=== PATIENT | female | born 1935 | race Caucasian/White ===

== ENCOUNTER 2018-05-08 08:00 | Outpatient (RCR) | payer MEDICARE | END 2018-05-12 | disposition home or self-care (01) | LOC: CR3 08:00 | PROVIDERS: ATTEND Internal Medicine Cardiovascular Disease | DX: Z29.8 Encounter for other specified prophylactic measures (principal) ==

== ENCOUNTER 2018-05-13 07:50 | Outpatient (RCR) | payer MEDICARE | END 2018-06-13 | disposition home or self-care (01) | LOC: CR 07:50 | PROVIDERS: ATTEND Internal Medicine Cardiovascular Disease | DX: I20.8 Other forms of angina pectoris (principal) | CPT/HCPCS: 93798 ==

== ENCOUNTER 2018-06-07 07:00 | Outpatient (RCR) | payer MEDICARE | END 2018-06-13 | disposition home or self-care (01) | LOC: CR3 07:00 | PROVIDERS: ATTEND Internal Medicine Cardiovascular Disease | DX: Z29.8 Encounter for other specified prophylactic measures (principal) ==

== ENCOUNTER 2018-07-17 08:46 | Outpatient (RCR) | payer MEDICARE | END 2018-08-11 | disposition home or self-care (01) | LOC: CR3 08:46 | PROVIDERS: ATTEND Internal Medicine Cardiovascular Disease | DX: Z29.8 Encounter for other specified prophylactic measures (principal) ==

== ENCOUNTER → 2018-09-04 | Outpatient (CLI) | payer MEDICARE ==
[2018-09-04 06:52] LABS: BASOPHILS % (AUTO) 1 % (0-10); EOSINOPHILS # (AUTO) 0.2 10^3/uL (0.0-0.3); EOSINOPHILS % (AUTO) 4 % (0-10); HEMATOCRIT 34 % (35-52); LYMPHOCYTES # (AUTO) 1.3 X 10^3 (1.0-4.0); LYMPHOCYTES % (AUTO) 31 % (12-44); MEAN CORPUSCULAR HEMOGLOBIN 28 PG (25-34); MEAN CORPUSCULAR HGB CONC 32 G/DL (32-36); MEAN CORPUSCULAR VOLUME 87 FL (80-99); MEAN PLATELET VOLUME 8.5 FL (7.4-10.4); MONOCYTES # (AUTO) 0.4 X 10^3 (0.0-1.0); MONOCYTES % (AUTO) 10 % (0-12); NEUTROPHILS # (AUTO) 2.2 X 10^3 (1.8-7.8); NEUTROPHILS % (AUTO) 54 % (42-75); PLATELET COUNT 195 10^3/uL (130-400); RED BLOOD COUNT 3.93 10^6/uL (4.35-5.85); RED CELL DISTRIBUTION WIDTH 13.3 % (10.0-14.5)
[2018-09-04 07:19] LABS: ALBUMIN 4.1 GM/DL (3.2-4.5); BILIRUBIN,TOTAL 0.3 MG/DL (0.1-1.0); CALCIUM 9.6 MG/DL (8.5-10.1); CREATININE SERUM 1.13 MG/DL (0.60-1.30); POTASSIUM 3.2 MMOL/L (3.6-5.0); TOTAL PROTEIN 6.9 GM/DL (6.4-8.2)
== END ==
LOC: LAB 06:36
PROVIDERS: ATTEND Family Medicine
DX: I10 Essential (primary) hypertension (principal); R73.9 Hyperglycemia, unspecified; I25.10 Atherosclerotic heart disease of native coronary artery without angina pectoris; D64.9 Anemia, unspecified; M62.81 Muscle weakness (generalized)
CPT/HCPCS: 36415; 80053; 80061; 83036; 85025

== ENCOUNTER 2019-01-01 12:28 | Emergency (ER) | payer MEDICARE ==
[~2019-01-01] VITALS: Ht 162.6 cm; Wt 58.1 kg
[2019-01-01] MEDS ORDERED: fentaNYL INJECTION 100 MCG/2 ML AMP IVP STA ×3 (12:49→17:33)
--- NOTE | 2019-01-01 12:59 | ED Abdominal Pain ---
General Stated Complaint: SOA;SHOULDER PAIN History of Present Illness Date Seen by Provider: Jan 01, 2019 Time Seen by Provider: 12:30 Initial Comments 83-year-old female presents via EMS for primary complaint of lower abdominal pain. EMS reports that she was short of breath and complaining of right shoulder pain, when they were called to her residence. She reports those are secondary problems, her main concern is the lower abdominal pain. She had a left mastectomy 2 weeks ago at [facility] in [place], Dr. Spivey was surgeon.. Her surgeon wanted her evaluated in [place]. She lives alone and was unable to get transportation to [place]. She does complain of right shoulder pain with deep inspiration. She is on aspirin daily no other blood thinners since surgery. She does have a history of a bowel obstruction in the past, and she reports that her lower abdominal pain feels similar. She has been taking hydrocodone for a history of polio with leg pains and since having her mastectomy. She is not on a stool softener. She does report a small stool yesterday and that she's been having a stool approximately every other day. She has had liquids today but no solid food intake. She denies any nausea or vomiting. Timing/Duration: 24 Hours Severity/Quality: Moderate Location: Suprapubic Radiation: Shoulder (Left) Activities at Onset: None Associated Symptoms: Shortness of Air Allergies and Home Medications Allergies Coded Allergies: carbamazepine (Verified Allergy, Unknown, 01/01/19) cyproheptadine (Verified Allergy, Unknown, 01/01/19) esomeprazole (Verified Allergy, Unknown, 01/01/19) indomethacin (Verified Allergy, Unknown, 01/01/19) lorazepam (Verified Allergy, Unknown, 01/01/19) simvastatin (Verified Allergy, Unknown, 01/01/19) Uncoded Allergies: PENICILLIN (Allergy, Unknown, 01/01/19) Patient Home Medication List Home Medication List Reviewed: Yes Review of Systems Review of Systems Constitutional: no symptoms reported, see HPI Respiratory: See HPI, SOA With Exertion Gastrointestinal: No Symptoms Reported, See HPI, Abdominal Pain, Poor Appetite Musculoskeletal: see HPI, joint pain (left shoulder pain) All Other Systems Reviewed Negative Unless Noted: Yes Past Gwptgji-Luxxwg-Twkavb Hx Past Med/Social Hx: Reviewed Nursing Past Med/Soc Hx Physical Exam Vital Signs Vital Signs - First Documented 01/01/19 12:30 Temp 97.1 Pulse 86 Resp 16 B/P (MAP) 126/63 (84) Pulse Ox 100 Capillary Refill : Height/Weight/BMI Height: '" Weight: lbs. oz. kg; BMI Method: General Appearance: WD/WN, no apparent distress HEENT: PERRL/EOMI, normal ENT inspection, TMs normal, pharynx normal, other ( oral mucosa pink and moist) Neck: non-tender, full range of motion, supple, normal inspection Respiratory: chest non-tender, lungs clear, normal breath sounds, other ( patient reports discomfort with deep inspiration on the left chest. Her incision site from mastectomy as well healed, the incision shows no erythema, drainage, warmth, swelling, or tenderness.) Cardiovascular: normal peripheral pulses, regular rate, rhythm, no edema, no murmur Gastrointestinal: soft, no organomegaly, abnormal bowel sounds (hypoactive), tenderness (suprapubic) Extremities: normal range of motion, non-tender, normal inspection, normal capillary refill, other (Tenderness directly over AC jt left shoulder, tender to palpation and with range of motion to the left shoulder. She has full range of motion to the left shoulder, ice up and triceps resisted strength is V/V. neurovascular status is intact left upper extremity.) Back: normal inspection, no CVA tenderness, no vertebral tenderness Neurologic/Psychiatric: no motor/sensory deficits, alert, normal mood/affect, oriented x 3 Skin: normal color, warm/dry Lymphatic: no adenopathy Progress/Results/Core Measures Results/Orders Lab Results Laboratory Tests Test 01/01/19 12:54 01/01/19 13:05 Range/Units White Blood Count 9.6 4.3-11.0 10^3/uL Red Blood Count 3.36 L 4.35-5.85 10^6/uL Hemoglobin 9.0 L 11.5-16.0 G/DL Hematocrit 29 L 35-52 % Mean Corpuscular Volume 86 80-99 FL Mean Corpuscular Hemoglobin 27 25-34 PG Mean Corpuscular Hemoglobin Concent 31 L 32-36 G/DL Red Cell Distribution Width 14.0 10.0-14.5 % Platelet Count 206 130-400 10^3/uL Mean Platelet Volume 9.1 7.4-10.4 FL Neutrophils (%) (Auto) 82 H 42-75 % Lymphocytes (%) (Auto) 9 L 12-44 % Monocytes (%) (Auto) 9 0-12 % Eosinophils (%) (Auto) 0 0-10 % Basophils (%) (Auto) 0 0-10 % Neutrophils # (Auto) 7.8 1.8-7.8 X 10^3 Lymphocytes # (Auto) 0.9 L 1.0-4.0 X 10^3 Monocytes # (Auto) 0.9 0.0-1.0 X 10^3 Eosinophils # (Auto) 0.0 0.0-0.3 10^3/uL Basophils # (Auto) 0.0 0.0-0.1 10^3/uL Sodium Level 134 L 135-145 MMOL/L Potassium Level 3.2 L 3.6-5.0 MMOL/L Chloride Level 99 98-107 MMOL/L Carbon Dioxide Level 26 21-32 MMOL/L Anion Gap 9 5-14 MMOL/L Blood Urea Nitrogen 23 H 7-18 MG/DL Creatinine 1.11 0.60-1.30 MG/DL Estimat Glomerular Filtration Rate 47 BUN/Creatinine Ratio 21 Glucose Level 125 H 70-105 MG/DL Calcium Level 8.6 8.5-10.1 MG/DL Corrected Calcium 9.0 8.5-10.1 MG/DL Total Bilirubin 0.3 0.1-1.0 MG/DL Aspartate Amino Transf (AST/SGOT) 20 5-34 U/L Alanine Aminotransferase (ALT/SGPT) 11 0-55 U/L Alkaline Phosphatase 63 40-136 U/L Troponin I < 0.028 <0.028 NG/ML Total Protein 6.0 L 6.4-8.2 GM/DL Albumin 3.5 3.2-4.5 GM/DL Amylase Level 59 25-125 U/L Lipase 11 8-78 U/L Urine Color ADRIANE H Urine Clarity SLIGHTLY CLOUDY Urine pH 7 5-9 Urine Specific [place] 1.010 L 1.016-1.022 Urine Protein 1+ H NEGATIVE Urine Glucose (UA) NEGATIVE NEGATIVE Urine Ketones NEGATIVE NEGATIVE Urine Nitrite POSITIVE H NEGATIVE Urine Bilirubin NEGATIVE NEGATIVE Urine Urobilinogen NORMAL NORMAL MG/DL Urine Leukocyte Esterase 3+ H NEGATIVE Urine RBC (Auto) NEGATIVE NEGATIVE Urine RBC NONE /HPF Urine WBC 25-50 H /HPF Urine Squamous Epithelial Cells 2-5 /HPF Urine Crystals NONE /LPF Urine Bacteria LARGE H /HPF Urine Casts PRESENT /LPF Urine Hyaline Casts 5-10 H /LPF Urine Mucus NEGATIVE /LPF Urine Culture Indicated YES My Orders Orders - TYRONE MCQUEEN Amylase (01/01/19 12:40) Cbc With Automated Diff (01/01/19 12:40) Comprehensive Metabolic Panel (01/01/19 12:40) Lipase (01/01/19 12:40) Ua Culture If Indicated (01/01/19 12:40) Chest Pa/Lat (2 View) (01/01/19 12:40) Ct Abdomen/Pelvis Wo (01/01/19 12:40) Saline Lock/Iv-Start (01/01/19 12:40) Troponin I (01/01/19 12:42) Fentanyl Injection (Sublimaze Injection (01/01/19 12:49) Ekg Tracing (01/01/19 13:22) Urine Culture (01/01/19 13:05) 1/2 Ns W/Kcl 20 Meq/L (0.45% Sodium Chlo (01/01/19 13:35) Metronidazole 500mg/100ml Ivpb (Flagyl 5 (01/01/19 15:00) Levofloxacin 500 Mg/100 Ml Iv (Levaquin (01/01/19 15:00) Pantoprazole Injection (Protonix Injecti (01/01/19 15:00) Metronidazole 500mg/100ml Ivpb (Flagyl 5 (01/01/19 14:58) Pantoprazole Injection (Protonix Injecti (01/01/19 14:58) Levofloxacin 500 Mg/100 Ml Iv (Levaquin (01/01/19 14:58) Fentanyl Injection (Sublimaze Injection (01/01/19 15:46) Ondansetron Injection (Zofran Injectio (01/01/19 17:00) Fentanyl Injection (Sublimaze Injection (01/01/19 17:33) Medications Given in ED Current Medications Medications Dose Ordered Sig/Samson Route Start Time Stop Time Status Last Admin Dose Admin Levofloxacin/ Dextrose 100 ml @ 100 mls/hr ONCE ONCE IV 01/01/19 15:00 01/01/19 15:59 DC 01/01/19 15:07 100 MLS/HR Metronidazole 100 ml @ 100 mls/hr ONCE ONCE IV 01/01/19 15:00 01/01/19 15:59 DC 01/01/19 15:57 100 MLS/HR Ondansetron HCl 4 mg ONCE ONCE IVP 01/01/19 17:00 01/01/19 17:01 DC 01/01/19 16:57 4 MG Pantoprazole 40 mg STK-MED ONCE .ROUTE 01/01/19 14:58 01/01/19 15:07 DC 01/01/19 15:08 40 MG Vital Signs/I&O 01/01/19 01/01/19 12:30 17:42 Temp 97.1 97.8 Pulse 86 86 Resp 16 16 B/P (MAP) 126/63 (84) 137/64 (88) Pulse Ox 100 100 Progress Progress Note : Time: 12:30 Progress Note Patient seen and evaluated. Will obtain labs, CT abdomen and pelvis, chest x-ray , IV fluids, and fentanyl 12.5 g for pain. Patient instructed to remain nothing by mouth. 1315 patient reports pain has improved. Potassium 3.2, will give half normal saline with 20 mEq of potassium IV. 1345 patient reports pain has returned, in the suprapubic region. We'll give fentanyl 12.[address]. Gonzales, he agreed with air and small fluid in Left Upper Quad. 14[address] radiology requested to upload CT to [facility] to [facility]. [address] Spivey at [facility]. Discussed the patient's assessment, labs and CT findings. He would like to direct admit the patient to [facility]. He will call orders to the floor. Since she is stable, he recommended private transfer by her family if they are willing. Would like Protonix 40 mg, Levaquin 500 mg, and Flagyl 500 mg, given IV prior to discharge. [address] results and recommendations by Dr. Spivey with the patient and her family. They agree with this treatment plan and her daughter can drive her to [facility]. She currently states that her pain is well-controlled and she has no other complaints. [address] Spivey's office, [facility] is on diversion and she will have to be admitted and transferred to a different facility. Dr. Spivey do not have privileges at any other facility. Spoke to Dr. Marshall by phone, declined to admit patient here with her significant surgical and medical history, recent mastectomy. Spoke to [facility], they have "no physical beds available for inpatients admissions at this time." 1530 spoke to patient and her daughter, they would prefer transfer to [facility], if unable to be transferred to [facility]. Called transfer line, awaiting reply from physician 1615 [facility] called, Dr. Toscano has agreed to accept patient. Obtained minimal surgical records Dr. Spivey, sent this to for review. 1630 Patient complains of mild nausea, will give Zofran 4 mg IV. 1730 [facility] here for transfer, Vital signs have remained stable, B/ P 130s/70s, SaO2 99% on RA. Patient does report that her pain is increased again , we will give fentanyl 50 g prior to discharge. Initial ECG Impression Date: Jan 01, 2019 Initial ECG Impression Time: 13:39 Initial ECG Rate: 72 Initial ECG Rhythm: Normal Sinus Initial ECG Intervals: Normal Initial ECG Intervals FL 176, QRSD 86, QT 400, QTC 438. [place] P 60, QRS 40, T 54. Initial ECG Impression: Normal Initial ECG Comparisson: No Previous ECG Available Comment reviewed with Dr. Gonzales, agreed with interpretation. Diagnostic Imaging Diagonstic Imaging: CT Plain Films/CT/US/NM/MRI: abdomen, pelvis Comments NAME: MARIA LUZ CANTU [facility] REC#: [id number] PT STATUS: REG ER : 1935 PHYSICIAN: TYRONE MCQUEEN ADMIT DATE: 01/01/19/ER Signed Date of Exam: 01/01/19 CT ABDOMEN/PELVIS WO PROCEDURE: CT abdomen and pelvis without contrast. TECHNIQUE: Multiple contiguous axial images were obtained through the abdomen and pelvis without the use of intravenous contrast. INDICATION: Lower abdominal and pelvic pain with bloating x2 years, increasing in severity. CORRELATION STUDY: None. FINDINGS: LOWER THORAX: Lung bases are clear of infiltrate. Heart size is normal with scattered coronary artery calcification. Trace pericardial effusion. LIVER: Unremarkable on unenhanced imaging. GALLBLADDER: Cholecystectomy changes. No significant bile ductal dilatation. SPLEEN: Unremarkable. PANCREAS: Diffusely atrophic. ADRENAL GLANDS: Unremarkable. KIDNEYS: Slight diffuse thinning of the renal parenchyma. No obstruction. No perinephric stranding. ABDOMINAL AORTA: Moderate aortoiliac wall calcification, nonaneurysmal. GASTROINTESTINAL TRACT: Postoperative changes of the abdomen are noted. Multiple surgical clips at the stomach. Additional anastomotic suture line at the distal colon with likely right hemicolectomy changes. There is a small amount of extraluminal gas in the left upper quadrant with associated stranding of the fat. This is adjacent to the surgical clips at the stomach, concerning for small area of perforation. Small nodular density is noted, could be reflective of small amount of fluid. However, no drainable abscess formation at this time. The extraluminal gas is confined to this area. Slight wall thickening and haziness of the duodenum is suspect for potential duodenitis. Likely some adhered loops of bowel to the anterior abdominal wall. Moderate severity of fecal retention within the remaining colon. URINARY BLADDER: Relatively decompressed. REPRODUCTIVE: Posthysterectomy changes. OSSEOUS STRUCTURES: Heterogeneous appearance about the osseous structures. No definitive focal lytic changes. OTHER: Density about the lower anterior chest wall is noted. This could be owing to perhaps previous surgical changes at the breast. Slight overlying skin thickening. IMPRESSION: 1. Extraluminal gas and inflammatory changes in the left upper quadrant, compatible with visceral perforation. This is likely at or near the level of apparent anastomotic suture lines at the stomach. Small fluid collection but without drainable abscess formation at this time. Additional suggestion of wall thickening of the duodenum could be reflective of underlying duodenitis. 2. Moderate severity of fecal retention. 3. Postcholecystectomy and hysterectomy changes. 4. Moderate severity of aortoiliac wall calcification. 5. Somewhat diffuse increased density about the osseous structures. This is nonspecific. Possibility of diffuse sclerosis of metastatic disease is considered somewhat less likely but would be difficult to exclude. Correlation with patient's clinical history. Findings have been telephoned to the emergency department at time of this dictation, 1:56 p.m. CRITICAL FINDING Dictated by: Dictated on workstation # [id number] Reviewed: Reviewed by Me, Reviewed/Discussed (With Dr. Gonzales) Diagonstic Imaging: Xray Plain Films/CT/US/NM/MRI: chest Comments NAME: MARIA LUZ CANTU [facility] REC#: [id number] PT STATUS: REG ER : 1935 PHYSICIAN: TYRONE MCQUEEN ADMIT DATE: 01/01/19/ER Signed Date of Exam: 01/01/19 CHEST PA/LAT (2 VIEW) INDICATION: Shortness of air, left-sided shoulder pain since last night. History of mastectomy 2 weeks ago.. TECHNIQUE: Two view chest 2:15 PM CORRELATION STUDY: None FINDINGS: Surgical change left mastectomy with left axillary lymph node dissection. Minimal atelectasis at the left costophrenic angle. No consolidating infiltrate. Heart size, mediastinum and vasculature overall within normal limits. Multiple surgical clips throughout the abdomen. Slight accentuated kyphotic curvature. IMPRESSION: 1. Negative for acute findings in the chest. Surgical change of the left chest wall and axilla. Dictated by: Dictated on workstation # [id number] Dict: 01/01/19 1437 Trans: 01/01/19 1555 Interpreted by: HEIKE DE LA ROSA DO Electronically signed by: HEIKE DE LA ROSA DO 01/01/19 1555 Reviewed: Reviewed by Me Departure Impression Primary Impression: Urinary tract infection Qualified Codes: N30.01 - Acute cystitis with hematuria Additional Impressions: Intra-abdominal fluid Qualified Codes: R18.8 - Other ascites Perforated stomach Disposition: [facility]OSP Condition: Stable Transfer Time Spoke to Accepting Phy: 16:[address] Toscano at [facility] accepted patient for transfer. Transfer Time: 17:30 Method of Transfer: EMS Departure-Patient Inst. Referrals: YA ROACH MD (PCP/Family) Primary Care Physician Copy Copies To 1: YA ROACH MD, AMY ARNP Jan 01, 2019 12:58
[2019-01-01 13:03] LABS: BASOPHILS % (AUTO) 0 % (0-10); EOSINOPHILS % (AUTO) 0 % (0-10); HEMATOCRIT 29 % (35-52); LYMPHOCYTES # (AUTO) 0.9 X 10^3 (1.0-4.0); LYMPHOCYTES % (AUTO) 9 % (12-44); MEAN CORPUSCULAR HEMOGLOBIN 27 PG (25-34); MEAN CORPUSCULAR HGB CONC 31 G/DL (32-36); MEAN CORPUSCULAR VOLUME 86 FL (80-99); MEAN PLATELET VOLUME 9.1 FL (7.4-10.4); MONOCYTES # (AUTO) 0.9 X 10^3 (0.0-1.0); MONOCYTES % (AUTO) 9 % (0-12); NEUTROPHILS # (AUTO) 7.8 X 10^3 (1.8-7.8); NEUTROPHILS % (AUTO) 82 % (42-75); PLATELET COUNT 206 10^3/uL (130-400); WHITE BLOOD COUNT 9.6 10^3/uL (4.3-11.0)
[2019-01-01 13:14] LABS: BILIRUBIN,URINE NEGATIVE (NEGATIVE); CLARITY,URINE SLIGHTLY CLOUDY; COLOR,URINE AMBER; GLUCOSE, URINE (UA) NEGATIVE (NEGATIVE); KETONES,URINE NEGATIVE (NEGATIVE); LEUKOCYTE ESTERASE ,URINE 3+ (NEGATIVE); NITRITE,URINE POSITIVE (NEGATIVE); PH,URINE 7 (5-9); PROTEIN,URINE 1+ (NEGATIVE); UROBILINOGEN,URINE NORMAL (NORMAL)
[2019-01-01 13:21] LABS: ALANINE AMINOTRANSFERASE 11 U/L (0-55); ALBUMIN 3.5 GM/DL (3.2-4.5); ALKALINE PHOSPHATASE 63 U/L (40-136); AMYLASE 59 U/L (25-125); BILIRUBIN,TOTAL 0.3 MG/DL (0.1-1.0); BUN/CREATININE RATIO 21; CALCIUM 8.6 MG/DL (8.5-10.1); CARBON DIOXIDE 26 MMOL/L (21-32); CHLORIDE 99 MMOL/L (98-107); CREATININE SERUM 1.11 MG/DL (0.60-1.30); GFR ESTIMATED 47; GLUCOSE 125 MG/DL (70-105); LIPASE 11 U/L (8-78); POTASSIUM 3.2 MMOL/L (3.6-5.0); SODIUM 134 MMOL/L (135-145)
[2019-01-01 13:22] LABS: BACTERIA,URINE LARGE /HPF; WBC,URINE 25-50 /HPF
[2019-01-01] MEDS ORDERED: 1/2 NS W/KCL 20 MEQ/L 1,000 ML IV STA (13:35)
--- NOTE | 2019-01-01 14:20 | Diagnostic Imaging Report ---
PROCEDURE: CT abdomen and pelvis without contrast. TECHNIQUE: Multiple contiguous axial images were obtained through the abdomen and pelvis without the use of intravenous contrast. INDICATION: Lower abdominal and pelvic pain with bloating x2 years, increasing in severity. CORRELATION STUDY: None. FINDINGS: LOWER THORAX: Lung bases are clear of infiltrate. Heart size is normal with scattered coronary artery calcification. Trace pericardial effusion. LIVER: Unremarkable on unenhanced imaging. GALLBLADDER: Cholecystectomy changes. No significant bile ductal dilatation. SPLEEN: Unremarkable. PANCREAS: Diffusely atrophic. ADRENAL GLANDS: Unremarkable. KIDNEYS: Slight diffuse thinning of the renal parenchyma. No obstruction. No perinephric stranding. ABDOMINAL AORTA: Moderate aortoiliac wall calcification, nonaneurysmal. GASTROINTESTINAL TRACT: Postoperative changes of the abdomen are noted. Multiple surgical clips at the stomach. Additional anastomotic suture line at the distal colon with likely right hemicolectomy changes. There is a small amount of extraluminal gas in the left upper quadrant with associated stranding of the fat. This is adjacent to the surgical clips at the stomach, concerning for small area of perforation. Small nodular density is noted, could be reflective of small amount of fluid. However, no drainable abscess formation at this time. The extraluminal gas is confined to this area. Slight wall thickening and haziness of the duodenum is suspect for potential duodenitis. Likely some adhered loops of bowel to the anterior abdominal wall. Moderate severity of fecal retention within the remaining colon. URINARY BLADDER: Relatively decompressed. REPRODUCTIVE: Posthysterectomy changes. OSSEOUS STRUCTURES: Heterogeneous appearance about the osseous structures. No definitive focal lytic changes. OTHER: Density about the lower anterior chest wall is noted. This could be owing to perhaps previous surgical changes at the breast. Slight overlying skin thickening. IMPRESSION: 1. Extraluminal gas and inflammatory changes in the left upper quadrant, compatible with visceral perforation. This is likely at or near the level of apparent anastomotic suture lines at the stomach. Small fluid collection but without drainable abscess formation at this time. Additional suggestion of wall thickening of the duodenum could be reflective of underlying duodenitis. 2. Moderate severity of fecal retention. 3. Postcholecystectomy and hysterectomy changes. 4. Moderate severity of aortoiliac wall calcification. 5. Somewhat diffuse increased density about the osseous structures. This is nonspecific. Possibility of diffuse sclerosis of metastatic disease is considered somewhat less likely but would be difficult to exclude. Correlation with patient's clinical history. Findings have been telephoned to the emergency department at time of this dictation, 1:56 p.m. CRITICAL FINDING Dictated by: Dictated on workstation # [id number]
--- NOTE | 2019-01-01 14:41 | Diagnostic Imaging Report ---
INDICATION: Shortness of air, left-sided shoulder pain since last night. History of mastectomy 2 weeks ago.. TECHNIQUE: Two view chest 2:15 PM CORRELATION STUDY: None FINDINGS: Surgical change left mastectomy with left axillary lymph node dissection. Minimal atelectasis at the left costophrenic angle. No consolidating infiltrate. Heart size, mediastinum and vasculature overall within normal limits. Multiple surgical clips throughout the abdomen. Slight accentuated kyphotic curvature. IMPRESSION: 1. Negative for acute findings in the chest. Surgical change of the left chest wall and axilla. Dictated by: Dictated on workstation # [id number]
[2019-01-01] MEDS ORDERED: metroNIDAZOLE 500MG/100ML IVPB 100 ML ONE (14:58)
[2019-01-01] MEDS ORDERED: PANTOPRAZOLE 40 MG (PROTONIX) VIAL ONE (14:58)
[2019-01-01] MEDS ORDERED: LEVOFLOXACIN 500 MG/100 ML IV 100 ML ONE (14:58)
[2019-01-01] MEDS ORDERED: PANTOPRAZOLE 40 MG (PROTONIX) VIAL IV ONE (15:00)
[2019-01-01] MEDS ORDERED: LEVOFLOXACIN 500 MG/100 ML IV 100 ML IV ONE (15:00)
[2019-01-01] MEDS ORDERED: metroNIDAZOLE 500MG/100ML IVPB 100 ML IV ONE (15:00)
--- NOTE | 2019-01-01 16:45 | NUR ---
RECEIVED PHONE CALL FROM [facility]. PT WILL BE GOING TO ROOM [facility] BED 2. REPORT GIVEN TO ADEN HINDS.
--- NOTE | 2019-01-01 16:58 | NUR ---
PTS FAMILY HAS DECIDED TO NOT TAKE PT VIA PRIVATE VEHICLE, THEY WOULD LIKE TO SEND PT BY AMBULANCE NOW.
[2019-01-01] MEDS ORDERED: ONDANSETRON 4 MG/2 ML (SDV) Z0FRAN IVP ONE (17:00)
--- NOTE | 2019-01-01 17:40 | NUR ---
PHONE CALL PLACED TO [facility]. MESSAGE LEFT ON ANSWERING MACHINE.
[2019-01-01 17:42] VITALS: BP 137/64
== END 2019-01-01 17:42 | disposition short-term general hospital (02) ==
LOC: EDUNIT# 12:28 → ER 12:29
DX: N39.0 Urinary tract infection, site not specified (principal); K63.1 Perforation of intestine (nontraumatic); R06.02 Shortness of breath; R18.8 Other ascites; Z87.19 Personal history of other diseases of the digestive system; Z90.12 Acquired absence of left breast and nipple; Z79.82 Long term (current) use of aspirin; Z88.8 Allergy status to other drugs, medicaments and biological substances; Z88.0 Allergy status to penicillin
CPT/HCPCS: 36415; 71046; 74176; 80053; 81000; 82150; 83690; 84484; 85025; 87077; 87088; 87186; 93005

== ENCOUNTER → 2019-02-04 | Outpatient (CLI) | payer MEDICARE ==
[~2019-02-04] MED LIST: BARIUM SUSPENSION 2.1% (VANILLA SILQ) 450 ML PO ONE; HOLD METFORMIN - RECEIVED CONTRAST 20 ML VIAL IV SCH; IOHEXOL 350 MG/ML 100 ML (OMNIPAQUE 350) VIAL IV ONE
--- NOTE | 2019-02-04 14:46 | Diagnostic Imaging Report ---
PROCEDURE: CT abdomen and pelvis with contrast. TECHNIQUE: Multiple contiguous axial images were obtained through the abdomen and pelvis after administration of intravenous contrast. Auto Exposure Controls were utilized during the CT exam to meet ALARA standards for radiation dose reduction. DATE: February 04, 2019. COMPARISON: CT abdomen and pelvis January 01, 2019. INDICATION: 83-year-old female, abdominal pain. History of bowel leak. History of breast cancer. Status post right mastectomy. FINDINGS: The visualized portions of the lung bases are grossly clear. The heart is not enlarged. There is no identified pericardial effusion. There is partially imaged fluid type attenuation at the medial and inferior aspect of the left breast measuring approximately 3.9 x 1.2 cm in size. This is present on prior exam and previously measured up to approximately 5.8 x 1.9 cm in size. This is decreased in size. Internal attenuation is also decreased. This potentially may relate to a nonspecific fluid collection. The liver is unremarkable in size and contour. There is a low-attenuation lesion in the right lobe of the liver on axial image 25 measuring 8mm in size with internal attenuation of 20 Hounsfield units. This does not meet strict diagnostic criteria for definite diagnosis of benign hepatic cyst. This is grossly unchanged since very recent CT. The main, right, and left portal veins are patent. The gallbladder is unremarkable. There is no identified intrahepatic or extrahepatic bile duct dilation. The main pancreatic duct is not abnormally dilated. Unremarkable appearance of the pancreatic parenchyma. The spleen is normal in size. The adrenal glands are unremarkable. Unremarkable appearance of the renal parenchyma. The urinary collecting systems are not distended. There does appear to be a cystocele present. There is no prominent urinary bladder wall thickening. There is long segment mild abnormal wall thickening of the sigmoid colon with mild adjacent inflammatory stranding. There are postoperative changes of the colon. There is no abnormally dilated segment of bowel. There is rectus muscle diastases and extension of segment of small bowel near the margin of the intra-abdominal wall without clear hernia. There is no identified drainable fluid collection. There is no identified extravasation of contrast. The contrast does not extend to the level of the colon. There are postoperative related changes at the level of the stomach. There is no identified free intraperitoneal air. There is no sizable volume free pelvic fluid. There are postoperative changes of the anterior abdominal wall. There are atherosclerotic calcifications. There is no identified abnormally enlarged lymph node in the abdomen or pelvis which meets CT size criteria for adenopathy. 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 There is moderate joint space loss of both hips. There is no identified acute bony abnormality. There are multilevel degenerative changes of the spine. IMPRESSION: CT ABDOMEN AND PELVIS. 1. Postoperative changes of bowel without evidence of an enteric leak or drainable fluid collection or free fluid within the abdomen or pelvis. No free intraperitoneal air. 2. Long segment mild wall thickening of the sigmoid colon with adjacent inflammatory stranding likely relating to a nonspecific colitis. Infectious and inflammatory etiologies would be favored. 3. Partially visualized fluid collection in the region of the left medial and inferior breast which measure smaller in size and lower in attenuation since comparison exam although is not entirely imaged. This may relate to a nonspecific fluid collection. 4. 8 mm low-attenuation lesion in the liver which cannot be definitively characterized. Dictated by: Dictated on workstation # [id number]
== END ==
LOC: RAD 10:01
PROVIDERS: ATTEND Family Medicine
DX: K63.89 Other specified diseases of intestine (principal); K76.9 Liver disease, unspecified; Z85.3 Personal history of malignant neoplasm of breast; Z90.11 Acquired absence of right breast and nipple; Z98.890 Other specified postprocedural states
CPT/HCPCS: 74177

== ENCOUNTER 2019-09-23 10:44 | Outpatient (RCR) | payer MEDICARE ==
[2019-07-10 09:56] LABS: BASOPHILS % (AUTO) 1 % (0-10); EOSINOPHILS # (AUTO) 0.1 10^3/uL (0.0-0.3); EOSINOPHILS % (AUTO) 3 % (0-10); HEMATOCRIT 35 % (35-52); HEMOGLOBIN 11.6 G/DL (11.5-16.0); LYMPHOCYTES % (AUTO) 28 % (12-44); MEAN CORPUSCULAR HEMOGLOBIN 32 PG (25-34); MEAN CORPUSCULAR HGB CONC 34 G/DL (32-36); MEAN CORPUSCULAR VOLUME 96 FL (80-99); MEAN PLATELET VOLUME 9.1 FL (7.4-10.4); MONOCYTES # (AUTO) 0.3 X 10^3 (0.0-1.0); MONOCYTES % (AUTO) 9 % (0-12); NEUTROPHILS # (AUTO) 2.2 X 10^3 (1.8-7.8); NEUTROPHILS % (AUTO) 60 % (42-75); PLATELET COUNT 186 10^3/uL (130-400); RED CELL DISTRIBUTION WIDTH 12.3 % (10.0-14.5); WHITE BLOOD COUNT 3.7 10^3/uL (4.3-11.0)
[2019-07-10 10:15] LABS: ALBUMIN 3.8 GM/DL (3.2-4.5); BILIRUBIN,TOTAL 0.3 MG/DL (0.1-1.0); CALCIUM 8.8 MG/DL (8.5-10.1); CREATININE SERUM 0.98 MG/DL (0.60-1.30); POTASSIUM 4.3 MMOL/L (3.6-5.0)
[2019-09-23 11:00] LABS: BASOPHILS % (AUTO) 1 % (0-10); EOSINOPHILS # (AUTO) 0.1 10^3/uL (0.0-0.3); EOSINOPHILS % (AUTO) 2 % (0-10); HEMATOCRIT 37 % (35-52); HEMOGLOBIN 12.1 G/DL (11.5-16.0); LYMPHOCYTES # (AUTO) 1.7 X 10^3 (1.0-4.0); LYMPHOCYTES % (AUTO) 34 % (12-44); MEAN CORPUSCULAR HEMOGLOBIN 32 PG (25-34); MEAN CORPUSCULAR HGB CONC 33 G/DL (32-36); MEAN CORPUSCULAR VOLUME 98 FL (80-99); MEAN PLATELET VOLUME 9.3 FL (7.4-10.4); MONOCYTES # (AUTO) 0.5 X 10^3 (0.0-1.0); MONOCYTES % (AUTO) 10 % (0-12); NEUTROPHILS # (AUTO) 2.7 X 10^3 (1.8-7.8); NEUTROPHILS % (AUTO) 54 % (42-75); PLATELET COUNT 160 10^3/uL (130-400); RED CELL DISTRIBUTION WIDTH 12.6 % (10.0-14.5)
[2019-09-23 11:21] LABS: ALBUMIN 4.2 GM/DL (3.2-4.5); BILIRUBIN,TOTAL 0.3 MG/DL (0.1-1.0); CREATININE SERUM 1.48 MG/DL (0.60-1.30); POTASSIUM 3.5 MMOL/L (3.6-5.0); TOTAL PROTEIN 6.7 GM/DL (6.4-8.2)
== END 2019-10-08 | disposition home or self-care (01) ==
LOC: ONC 10:44
PROVIDERS: ATTEND Internal Medicine Hematology & Oncology
DX: D05.12 Intraductal carcinoma in situ of left breast (principal); D50.9 Iron deficiency anemia, unspecified; I25.10 Atherosclerotic heart disease of native coronary artery without angina pectoris; E11.22 Type 2 diabetes mellitus with diabetic chronic kidney disease; I12.9 Hypertensive chronic kidney disease with stage 1 through stage 4 chronic kidney disease, or unspecified chronic kidney disease; N18.9 Chronic kidney disease, unspecified; E03.9 Hypothyroidism, unspecified; Z90.12 Acquired absence of left breast and nipple; Z79.82 Long term (current) use of aspirin; Z79.810 Long term (current) use of selective estrogen receptor modulators (SERMs); Z79.899 Other long term (current) drug therapy
CPT/HCPCS: 36415; 80053; 85025; 99213

== ENCOUNTER → 2019-10-31 | Outpatient (CLI) | payer MEDICARE | LOC: LAB 11:27 | PROVIDERS: ATTEND Family Medicine | DX: E03.9 Hypothyroidism, unspecified (principal) | CPT/HCPCS: 36415; 84443 ==

== ENCOUNTER 2020-01-18 14:24 | Emergency (ER) | payer MEDICARE ==
[~2020-01-18] VITALS: Ht 162 cm; Wt 48.0 kg
[2020-01-18] MEDS ORDERED: HYDROcodone/APAP 7.5 MG/325 MG (LORTAB, LORCET PLUS) TABLET PO STA (15:07)
[2020-01-18] MEDS ORDERED: CYCLOBENZAPRINE 10 MG (FLEXERIL) TAB PO ONE (15:15)
--- NOTE | 2020-01-18 15:47 | ED Hip Pain/Injury ---
General Chief Complaint: Hip/Pelvic Problems Stated Complaint: PAIN IN BOTH HIPS Nursing Triage Note: patient states woke up yesterday morning with jill hip pain. radiation down rt leg Source: patient, family (daughter and son-in-law) Exam Limitations: no limitations History of Present Illness Date Seen by Provider: Jan 18, 2020 Time Seen by Provider: 15:00 Initial Comments 84-year-old female patient presents with complaints of low back pain radiating down the bilateral buttocks and down the right lower extremity beginning yesterday. Patient reports history of chronic low back pain. Denies any known recent injury. Denies numbness, tingling, weakness, balance, or bladder incontinence. She also does complain of a history of chronic headaches and migraines, but states she has had an intermittent headache for the last 2 weeks that involves the base of the skull, occipital scalp, and bilateral temples. Patient states her chronic migraines and headaches are usually located in the bilateral temples. Daughter reports patient has been intermittently more confused than normal over the last 1-2 weeks. She states patient does have a history of UTIs. Location Injury Occurred: denies known injury Modifying Factors: Improves With Immobilization; Worse With Movement Allergies and Home Medications Allergies Coded Allergies: carbamazepine (Verified Allergy, Unknown, 01/01/19) cyproheptadine (Verified Allergy, Unknown, 01/01/19) esomeprazole (Verified Allergy, Unknown, 01/01/19) indomethacin (Verified Allergy, Unknown, 01/01/19) lorazepam (Verified Allergy, Unknown, 01/01/19) simvastatin (Verified Allergy, Unknown, 01/01/19) Uncoded Allergies: PENICILLIN (Allergy, Unknown, 01/01/19) Home Medications Baclofen 10 Mg Tablet, 10 MG PO TID PRN for SPASMS Prescribed by: MARIA GUADALUPE SHAIKH on 01/18/201719 Meloxicam 7.5 Mg Tablet, 7.5 MG PO DAILY Prescribed by: MARIA GUADALUPE SHAIKH on 01/18/201719 Prednisone 20 Mg Tab, 40 MG PO DAILY Prescribed by: MARIA GUADALUPE SHAIKH on 01/18/201719 Patient Home Medication List Home Medication List Reviewed: Yes Review of Systems Constitutional: No chills, No diaphoresis, No dizziness, No fever, No malaise, No weakness EENTM: No ear discharge, No hearing loss, No ear pain, No blurred vision, No double vision, No vision loss, No hoarseness, No mouth pain, No nose congestion, No nose pain, No throat pain, No throat swelling Respiratory: No cough, No dyspnea on exertion, No hemoptysis, No orthopnea, No phlegm, No short of breath, No wheezing Cardiovascular: No chest pain, No edema, No palpitations, No syncope Gastrointestinal: No abdominal pain, No constipation, No diarrhea, No dysphagia, No hematemesis, No melena, No nausea, No vomiting Genitourinary: No decreased output, No dysuria, No frequency, No hematuria Musculoskeletal: see HPI, back pain, joint pain; No joint swelling; neck pain Past Czjbyjn-Rapyhg-Zsivzb Hx Past Med/Social Hx: Reviewed Nursing Past Med/Soc Hx Patient Social History Alcohol Use: Denies Use Recreational Drug Use: No Smoking Status: Never a Smoker 2nd Hand Smoke Exposure: No Recent Foreign Travel: No Contact w/Someone Who Travel: No Recent Infectious Disease Expo: No Recent Hopitalizations: Yes (DEC 2018-MASTECTOMY) Physical Abuse: No Sexual Abuse: No Mistreated: No Fear: No Immunizations Up To Date Date of Pneumonia Vaccine: Aug 11, 2019 Date of Influenza Vaccine: Sep 11, 2019 Seasonal Allergies Seasonal Allergies: No Past Medical History Surgeries: Yes Abdominal, Appendectomy, Bladder Surgery, Bowel Surgery, Breast, Cardiac, Coronary Stent, Eye Surgery, Gallbladder, Hysterectomy, Orthopedic Respiratory: No Cardiac: Yes Heart Attack Neurological: Yes Headaches /Migraines Genitourinary: No Gastrointestinal: No Musculoskeletal: No Endocrine: Yes Diabetes, Non-Insulin dep HEENT: Yes Cataract Cancer: Yes Breast Did You Recieve Any Treatments: Yes What Type of Treatment Did You: Surgical Intervention Psychosocial: No Integumentary: No Blood Disorders: Yes Adverse Reaction/Blood Tranf: No Family Medical History Reviewed Nursing Family Hx No Pertinent Family Hx Physical Exam Vital Signs Vital Signs - First Documented 01/18/20 14:45 Temp 36.7 Pulse 79 Resp 18 B/P (MAP) 156/80 (105) Pulse Ox 99 O2 Delivery Room Air Capillary Refill : Less Than 3 Seconds Height, Weight, BMI Height: 5'4.00" Weight: 128lbs. oz. 58.566606hd; 18.00 BMI Method:Stated General Appearance: No Apparent Distress, WD/WN HEENT: PERRL/EOMI, TMs Normal, Normal ENT Inspection, Pharynx Normal, Other (normocephalic, atraumatic. Tenderness to palpation at the base of the skull. No swelling, ecchymosis, or skull depression noted.) Neck: Full Range of Motion, Normal Inspection, Supple, Tender Lateral (posterior paracervical muscle spasm with mild soft tissue tenderness.); No Tender Midline Cardiovascular: Regular Rate, Rhythm, No Edema, No Gallop, No JVD, No Murmur, Normal Peripheral Pulses Respiratory: Chest Non Tender, Lungs Clear, Normal Breath Sounds, No Accessory Muscle Use, No Respiratory Distress Peripheral Pulses: 2+ Dorsalis Pedis (R), 2+ Left Dors-Pedis (L), 2+ Radial Pulses (R), 2+ Radial Pulses (L) Gastrointestinal: Normal Bowel Sounds, No Organomegaly, Non Tender, Soft Back: Normal Inspection, Muscle Spasm (right lumbar muscle spasm with tenderness), Vertebral Tenderness (right SI joint tenderness) Extremity: Normal Capillary Refill, Normal Inspection, Normal Range of Motion, No Calf Tenderness, No Pedal Edema, Pelvis Stable, Other (right buttock and posterior lateral thigh mildly tender palpation without swelling, deformity, ecchymosis.) Neurologic/Psychiatric: Alert, Oriented x3, No Motor/Sensory Deficits, Normal Mood/Affect, 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 II-XII Norm as Tested Skin: Normal Color, Warm/Dry Progress/Results/Core Measures Results/Orders Lab Results Laboratory Tests Test 01/18/20 16:30 Range/Units Urine Color YELLOW Urine Clarity CLEAR Urine pH 5.5 5-9 Urine Specific [place] 1.010 L 1.016-1.022 Urine Protein NEGATIVE NEGATIVE Urine Glucose (UA) NEGATIVE NEGATIVE Urine Ketones NEGATIVE NEGATIVE Urine Nitrite NEGATIVE NEGATIVE Urine Bilirubin NEGATIVE NEGATIVE Urine Urobilinogen 0.2 < = 1.0 MG/DL Urine Leukocyte Esterase TRACE H NEGATIVE Urine RBC (Auto) NEGATIVE NEGATIVE Urine RBC NONE /HPF Urine WBC NONE /HPF Urine Squamous Epithelial Cells RARE /HPF Urine Crystals NONE /LPF Urine Bacteria TRACE /HPF Urine Casts NONE /LPF Urine Mucus NEGATIVE /LPF Urine Culture Indicated NO My Orders Orders - MARIA GUADALUPE SHAIKH Hydrocodone/Apap 7.5/325 Tab (Lortab 7. (01/18/20 15:07) Ct Head Wo (01/18/20 15:07) Ct Lumbar Spine Wo (01/18/20 15:07) Hip, Right, 2 Views (01/18/20 15:07) Cyclobenzaprine Tablet (Flexeril Tablet) (01/18/20 15:15) Ua Culture If Indicated (01/18/20 15:53) Prednisone Tablet (Deltasone Tablet) (01/18/20 17:30) Morphine Injection (Morphine Injection (01/18/20 17:16) Medications Given in ED Current Medications Medications Dose Ordered Sig/Samson Route Start Time Stop Time Status Last Admin Dose Admin Cyclobenzaprine HCl 5 mg ONCE ONCE PO 01/18/20 15:15 01/18/20 15:16 DC 01/18/20 15:23 5 MG Prednisone 40 mg ONCE ONCE PO 01/18/20 17:30 01/18/20 17:31 DC 01/18/20 17:28 40 MG Vital Signs/I&O 01/18/20 01/18/20 14:45 18:20 Temp 36.7 36.7 Pulse 79 70 Resp 18 22 B/P (MAP) 156/80 (105) 146/55 Pulse Ox 99 99 O2 Delivery Room Air Room Air Blood Pressure Mean: 105 Diagnostic Imaging Diagonstic Imaging: CT Plain Films/CT/US/NM/MRI: other (lumbar spine) Comments Date of Exam:01/18/20 CT LUMBAR SPINE WO PROCEDURE: CT lumbar spine without contrast. TECHNIQUE: Multiple contiguous axial images were obtained through the lumbar spine without the use of intravenous contrast. Sagittal and coronal reformations were then performed. Auto Exposure Controls were utilized during the CT exam to meet ALARA standards for radiation dose reduction. INDICATION: Back pain radiating down right leg. FINDINGS: The lumbar spine is normal. Vertebral body heights are well maintained. There is no spondylolysis or s pondylolisthesis. No fractures are identified. There is some lower lumbar hypertrophic degenerative facet disease. There appears to be some annular bulging and moderate spinal stenosis at L4-L5. Also minimal annular bulging at L5-S1. There is atherosclerotic calcification of the aorta, which is nonaneurysmal. Kidneys are normal in appearance. IMPRESSION: Mild lower spondylosis and lower lumbar degenerative disc disease without acute fracture. In light of the patient's radiculopathy, further evaluation with MRI is recommended. Dictated by: Dictated on workstation # [id number] Reviewed: Reviewed by Me (radiology report reviewed by me) Diagonstic Imaging: CT Plain Films/CT/US/NM/MRI: head Comments Date of Exam:01/18/20 CT HEAD WO PROCEDURE: CT head without contrast. TECHNIQUE: Multiple contiguous axial images were obtained through the brain without the use of intravenous contrast. Auto Exposure Controls were utilized during the CT exam to meet ALARA standards for radiation dose reduction. INDICATION: Weakness and hip pain. FINDINGS: Age-related global volume loss is present. There are no findings of territorial loss of courtney-white differentiation. There is no mass effect or shift. There is no hydrocephalus. There is no abnormal extra-axial fluid collection. The basilar cisterns are patent. Posterior fossa is unremarkable. Mastoid air cells appear clear. The visualized paranasal sinuses are clear. There is no acute calvarial abnormality. IMPRESSION: Age-related global volume loss without CT evidence of an acute intracranial abnormality. Dictated on workstation # [id number] Reviewed: Reviewed by Me (radiology report reviewed by me) Diagonstic Imaging: Xray Plain Films/CT/US/NM/MRI: hip Comments Date of Exam:01/18/20 HIP, RIGHT, 2 VIEWS INDICATION: Right hip pain. FINDINGS: There is moderate osteoarthritic joint space narrowing demonstrated at the right hip with acetabular subchondral sclerosis and osteophyte formation. Morphology of the femoral head appears appropriate without findings to suggest osteonecrosis. There are no findings to suggest an acute proximal femoral fracture. The visualized portion of the pelvic ring appears intact. IMPRESSION: 1. Moderate right hip osteoarthritic changes without findings of dislocation, acute fracture or suspicious bony lesion. Dictated on workstation # [id number] Reviewed: Reviewed by Me (radiology report reviewed by me) Departure Communication (Admissions) Patient seen and evaluated. CT head, CT lumbar spine, and x-ray of the right hip obtained which were negative for acute findings. Urinalysis was obtained per daughter's request to rule out urinary tract infection. Patient was given Lortab 7.5 mg, Flexeril 5 mg, prednisone 40 mg, and morphine 2 mg IM 1 dose in the emergency department. Pain was improved. All diagnostic findings and laboratory findings were discussed with the patient. Patient discharged to home with follow-up as an outpatient with her primary care provider. Patient instructed to return to the emergency department for worsened symptoms or any other concerns. Impression Primary Impression: Osteoarthritis of right hip Qualified Codes: M16.11 - Unilateral primary osteoarthritis, right hip Additional Impressions: Lumbar radiculopathy Frequent headaches Disposition: 01 HOME, SELF-CARE Condition: Improved Departure-Patient Inst. Decision time for Depature: 17:18 Referrals: DAVID ROACH MD (PCP/Family) Primary Care Physician Patient Instructions: Tension Headache (DC), Radiculopathy (DC), Osteoarthritis (DC) Add. Discharge Instructions: All discharge instructions reviewed with patient and/or family. Voiced understanding. Medications as instructed. Continue usual home medications. Wear good supportive shoes. You may use a warm pack or heating pad as needed for muscle pain and spasm. Avoid sitting on hard surfaces. Follow-up with Dr. David Roach this week as scheduled for recheck and for possible need of scheduling an MRI of the low back as an outpatient. Return to the emergency department immediately for worsened pain, numbness, weakness, bowel incontinence, bladder incontinence, numbness in the genital area, headache, dizziness, changes in vision, slurred speech, confusion, or any other concerns. Scripts Meloxicam (Meloxicam) 7.5 Mg Tablet 7.5 MG PO DAILY, #10 TAB 0 Refills Prov: MARIA GUADALUPE SHAIKH 01/18/20 Baclofen (Baclofen) 10 Mg Tablet 10 MG PO TID PRN for SPASMS, #14 TAB 0 Refills Prov: MARIA GUADALUPE SHAIKH 01/18/20 Prednisone (Prednisone) 20 Mg Tab 40 MG PO DAILY, #8 TAB 0 Refills Prov: MARIA GUADALUPE SHAIKH 01/18/20 Copy Copies To 1: DAVID ROACH MD, GRETCHEN L PA Jan 18, 2020 15:47
--- NOTE | 2020-01-18 16:09 | Diagnostic Imaging Report ---
PROCEDURE: CT head without contrast. TECHNIQUE: Multiple contiguous axial images were obtained through the brain without the use of intravenous contrast. Auto Exposure Controls were utilized during the CT exam to meet ALARA standards for radiation dose reduction. INDICATION: Weakness and hip pain. FINDINGS: Age-related global volume loss is present. There are no findings of territorial loss of courtney-white differentiation. There is no mass effect or shift. There is no hydrocephalus. There is no abnormal extra-axial fluid collection. The basilar cisterns are patent. Posterior fossa is unremarkable. Mastoid air cells appear clear. The visualized paranasal sinuses are clear. There is no acute calvarial abnormality. IMPRESSION: Age-related global volume loss without CT evidence of an acute intracranial abnormality. Dictated by: Dictated on workstation # [id number]
--- NOTE | 2020-01-18 16:11 | Diagnostic Imaging Report ---
PROCEDURE: CT lumbar spine without contrast. TECHNIQUE: Multiple contiguous axial images were obtained through the lumbar spine without the use of intravenous contrast. Sagittal and coronal reformations were then performed. Auto Exposure Controls were utilized during the CT exam to meet ALARA standards for radiation dose reduction. INDICATION: Back pain radiating down right leg. FINDINGS: The lumbar spine is normal. Vertebral body heights are well maintained. There is no spondylolysis or spondylolisthesis. No fractures are identified. There is some lower lumbar hypertrophic degenerative facet disease. There appears to be some annular bulging and moderate spinal stenosis at L4-L5. Also minimal annular bulging at L5-S1. There is atherosclerotic calcification of the aorta, which is nonaneurysmal. Kidneys are normal in appearance. IMPRESSION: Mild lower spondylosis and lower lumbar degenerative disc disease without acute fracture. In light of the patient's radiculopathy, further evaluation with MRI is recommended. Dictated by: Dictated on workstation # [id number]
--- NOTE | 2020-01-18 16:20 | Diagnostic Imaging Report ---
INDICATION: Right hip pain. FINDINGS: There is moderate osteoarthritic joint space narrowing demonstrated at the right hip with acetabular subchondral sclerosis and osteophyte formation. Morphology of the femoral head appears appropriate without findings to suggest osteonecrosis. There are no findings to suggest an acute proximal femoral fracture. The visualized portion of the pelvic ring appears intact. IMPRESSION: 1. Moderate right hip osteoarthritic changes without findings of dislocation, acute fracture or suspicious bony lesion. Dictated by: Dictated on workstation # [id number]
[2020-01-18 16:41] LABS: BILIRUBIN,URINE NEGATIVE (NEGATIVE); CLARITY,URINE CLEAR; COLOR,URINE YELLOW; GLUCOSE, URINE (UA) NEGATIVE (NEGATIVE); KETONES,URINE NEGATIVE (NEGATIVE); LEUKOCYTE ESTERASE ,URINE TRACE (NEGATIVE); NITRITE,URINE NEGATIVE (NEGATIVE); PH,URINE 5.5 (5-9); PROTEIN,URINE NEGATIVE (NEGATIVE)
[2020-01-18 16:48] LABS: BACTERIA,URINE TRACE /HPF
[2020-01-18 16:49] LABS: SQUAMOUS EPITHELIAL CELL,UR RARE /HPF
[2020-01-18] MEDS ORDERED: morphine INJ 10 MG/ML 1ML (SYR OR VIAL) IM STA (17:16)
[2020-01-18] MEDS ORDERED: PRD20T PO (17:20)
[2020-01-18] MEDS ORDERED: MELO7.5T46 PO (17:20)
[2020-01-18] MEDS ORDERED: BACL10TA PO (17:20)
[2020-01-18] MEDS ORDERED: predniSONE 20 MG TAB PO ONE (17:30)
[2020-01-18 18:20] VITALS: BP 146/55
--- OUTSIDE RECORDS SUMMARY | 2020-01-21 08:51 | XMS REPORT | Continuity of Care Document ---
Author Organization Unknown Address Unknown Phone Unavailable Allergies Active Description Code Type Severity Reaction Onset Reported/Identified Relationship to Patient Clinical Status Yes carbamazepine [id number] Yair g Allergy Unknown N/A 01/01/[id number] ug Allergy Unknown N/A 01/01/2019 Yes esomeprazole [id number] Drug Allergy Unknown N/A 01/01/2019 Yes indomethacin [id number] Drug Allergy Unknown N/A 01/01/2019 Yes lorazepam [id number] Drug Allergy Unknown N/A 01/01/2019 Yes PENICILLIN PENICILLIN Unknown N/A 01/01/2019 Yes simvastatin [id number] Drug Aller gy Unknown N/A 01/01/2019 Medications There is no data. Problems Date Dx Coded Attending Type Code Diagnosis Diagnosed By 01/04/2018 NESTOR MAIER DO, Ot I20.8 OTHER FORMS OF ANGINA PECTORIS 03/12/2018 NESTOR MAIER DO, Ot I20.8 OTHER FORMS OF ANGINA PECTORIS 03/13/2018 NESTOR MAIER DO, Ot I20.8 OTHER FORMS OF ANGINA PECTORIS 03/20/2018 NESTOR MAIER DO, Ot I20.8 OTHER FORMS OF ANGINA PECTORIS 03/20/2018 NESTOR MAIER DO, Ot I20.8 OTHER FORMS OF ANGINA PECTORIS 03/20/2018 NESTOR MAIER DO Ot I20.8 OTHER FORMS OF ANGINA PECTORIS 04/24/2018 NESTOR MAIER DO, Ot I20.8 OTHER FORMS OF ANGINA PECTORIS 05/06/2018 NESTOR MAIER DO, Ot I20.8 OTHER FORMS OF ANGINA PECTORIS 05/12/2018 NESTOR MAIER DO Ot Z29.8 ENCOUNTER FOR OTHER SPECIFIED PROPHYLACT 05/17/2018 NESTOR MAIER DO Ot Z29.8 ENCOUNTER FOR OTHER SPECIFIED PROPHYLACT 06/13/2018 NESTOR MAIER DO Ot I20.8 OTHER FORMS OF ANGINA PECTORIS 06/13/2018 NESTOR MAIER DO Ot Z29.8 ENCOUNTER FOR OTHER SPECIFIED PROPHYLACT 08/11/2018 NESTOR MAIER DO, Ot Z29.8 ENCOUNTER FOR OTHER SPECIFIED PROPHYLACT 09/04/2018 Ot 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 01/01/2019 Ot 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 01/01/2019 TYRONE MCQUEENP Ot K63.1 PERFORATION OF INTESTINE (NONTRAUMATIC) 01/01/2019 TYRONE MCQUEENP Ot N39.0 URINARY TRACT INFECTION, SITE NOT SPECIF 01/01/2019 RICHAR TYRONE VICE PRESIDENT BUSINESS DEVELOPMENT Ot R06.02 SHORTNESS OF BREATH 01/01/2019 RICHAR TYRONE VICE PRESIDENT BUSINESS DEVELOPMENT Ot R10.30 LOWER ABDOMINAL PAIN, UNSPECIFIED 01/01/2019 TYRONE MCQUEEN VICE PRESIDENT BUSINESS DEVELOPMENT Ot R18.8 OTHER ASCITES 01/01/2019 RICHAR TYRONE VICE PRESIDENT BUSINESS DEVELOPMENT Ot Z79.82 SNF (CURRENT) USE OF ASPIRIN 01/01/2019 RICHAR TYRONE VICE PRESIDENT BUSINESS DEVELOPMENT Ot Z87.19 PERSONAL HISTORY OF OTHER DISEASES OF TH 01/01/2019 TYRONE MCQUEENP Ot Z88.0 ALLERGY STATUS TO PENICILLIN 01/01/2019 RICHAR TYRONE VICE PRESIDENT BUSINESS DEVELOPMENT Ot Z88.8 ALLERGY STATUS TO OTH DRUG/MEDS/BIOL SUB 01/01/2019 RICHAR TYRONE VICE PRESIDENT BUSINESS DEVELOPMENT Ot Z90.12 ACQUIRED ABSENCE OF LEFT BREAST AND NIPP 01/31/2019 Ot 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 9 ANEMIA, UNSPECIFIED 01/31/2019 YA ROACH MD Ot I10 ESSENTIAL (PRIMARY) HYPERTENSION 01/31/2019 YA ROACH MD, Ot I25. 10 ATHSCL HEART DISEASE OF [place] CORONARY 01/31/2019 YA ROACH MD Ot M62. 81 MUSCLE WEAKNESS (GENERALIZED) 01/31/2019 YA ROACH MD Ot R73. 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 9 ANEMIA, UNSPECIFIED 01/31/2019 YA ROACH MD Ot I10 ESSENTIAL (PRIMARY) HYPERTENSION 01/31/2019 YA ROACH MD Ot I25. 10 ATHSCL HEART DISEASE OF [place] CORONARY 01/31/2019 YA ROACH MD Ot M62. 81 MUSCLE WEAKNESS (GENERALIZED) 01/31/2019 YA ROACH MD, Ot R73. 9 HYPERGLYCEMIA, UNSPECIFIED 02/05/2019 YA ROACH MD, Ot K63. 89 OTHER SPECIFIED DISEASES OF INTESTINE 02/05/2019 YA ROACH MD, Ot K76. 9 LIVER DISEASE, UNSPECIFIED 02/05/2019 YA ROACH MD, Ot Z85. 3 PERSONAL HISTORY OF MALIGNANT NEOPLASM O 02/05/2019 YA ROACH MD, Ot Z90. 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 89 OTHER SPECIFIED DISEASES OF INTESTINE 02/28/2019 YA ROACH MD, Ot K76. 9 LIVER DISEASE, UNSPECIFIED 02/28/2019 YA ROACH MD, Ot Z85. 3 PERSONAL HISTORY OF MALIGNANT NEOPLASM O 02/28/2019 YA ROACH MD, Ot Z90. 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 03/05/2019 JULISSA ELLENALFONSO N Ot I12.9 HYPERTENSIVE CHRONIC KIDNEY DISEASE W ST 03/05/2019 JULISSA JENARO N Ot I25.10 ATHSCL HEART DISEASE OF [place] CORONARY 03/05/2019 JULISSA JENARO [place] Ot N18.9 CHRONIC KIDNEY DISEASE, UNSPECIFIED 03/05/2019 JULISSA JENARO [place] Ot Z79.810 LNG TRM (CRNT) USE OF SLCTV ESTROG APPAREL MANUFACTURE INSTRUCTOR 03/05/2019 JULISSAJENARO Ot Z79.82 BEAUTY CULTURIST APPRENTICE (CURRENT) USE OF ASPIRIN 03/05/2019 JENARO COSTA Ot Z79.899 OTHER BEAUTY CULTURIST APPRENTICE (CURRENT) DRUG THERAPY 03/05/2019 JULISSAJENARO Ot Z90.12 ACQUIRED ABSENCE OF LEFT BREAST AND NIPP 03/14/2019 YA ROACH MD Ot K63. 89 OTHER SPECIFIED DISEASES OF INTESTINE 03/14/2019 YA ROACH MD Ot K76. 9 LIVER DISEASE, UNSPECIFIED 03/14/2019 YA ROACH MD Ot Z85. 3 PERSONAL HISTORY OF MALIGNANT NEOPLASM O 03/14/2019 YA ROACH MD Ot Z90. 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 05/01/2019 JULISSA JENARO Macedo Ot I12.9 HYPERTENSIVE CHRONIC KIDNEY DISEASE W ST 05/01/2019 JULISSAJENARO CASTELAN N Ot I25.10 ATHSCL HEART DISEASE OF [place] CORONARY 05/01/2019 JENRAO COSTA N Ot N18.9 CHRONIC KIDNEY DISEASE, UNSPECIFIED 05/01/2019 JENARO COSTA N Ot Z79.810 LNG TRM (CRNT) USE OF SLCTV ESTROG APPAREL MANUFACTURE INSTRUCTOR 05/01/2019 JENARO COSTA N Ot Z79.82 BEAUTY CULTURIST APPRENTICE (CURRENT) USE OF ASPIRIN 05/01/2019 JENARO COSTA N Ot Z79.899 OTHER SNF (CURRENT) DRUG THERAPY 05/01/2019 JENARO COSTA N Ot Z90.12 ACQUIRED ABSENCE OF LEFT BREAST AND NIPP 05/06/2019 JULISSA ELLENALFONSO N Ot 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 05/06/2019 JENARO COSTA N Ot D50.9 IRON DEFICIENCY ANEMIA, UNSPECIFIED 05/06/2019 JENARO COSTA N Ot E03.9 HYPOTHYROIDISM, UNSPECIFIED 05/06/2019 JULISSA JENARO N Ot 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 05/06/2019 JULISSA JENARO N Ot I12.9 HYPERTENSIVE CHRONIC KIDNEY DISEASE W ST 05/06/2019 JENARO COSTA N Ot I25.10 ATHSCL HEART DISEASE OF [place] CORONARY 05/06/2019 JENARO COSTA N Ot N18.9 CHRONIC KIDNEY DISEASE, UNSPECIFIED 05/06/2019 JENARO COSTA N Ot Z79.810 LNG TRM (CRNT) USE OF SLCTV ESTROG APPAREL MANUFACTURE INSTRUCTOR 05/06/2019 JENARO COSTA N Ot Z79.82 BEAUTY CULTURIST APPRENTICE (CURRENT) USE OF ASPIRIN 05/06/2019 JENARO COSTA N Ot Z79.899 OTHER BEAUTY CULTURIST APPRENTICE (CURRENT) DRUG THERAPY 05/06/2019 JENARO COSTA N Ot Z90.12 ACQUIRED ABSENCE OF LEFT BREAST AND NIPP 08/11/2019 JULISSA JENARO N Ot 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 08/11/2019 JULISSA JENARO N Ot D50.9 IRON DEFICIENCY ANEMIA, UNSPECIFIED 08/11/2019 JULISSA ELLENALFONSO N Ot E03.9 HYPOTHYROIDISM, UNSPECIFIED 08/11/2019 JULISSA JENARO N Ot 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 08/11/2019 JENARO COSTA N Ot I12.9 HYPERTENSIVE CHRONIC KIDNEY DISEASE W ST 08/11/2019 JENARO COSTA N Ot I25.10 ATHSCL HEART DISEASE OF [place] CORONARY 08/11/2019 JENARO COSTA N Ot N18.9 CHRONIC KIDNEY DISEASE, UNSPECIFIED 08/11/2019 JENARO COSTA N Ot Z79.810 LNG TRM (CRNT) USE OF SLCTV ESTROG APPAREL MANUFACTURE INSTRUCTOR 08/11/2019 JENARO COSTA N Ot Z79.82 SNF (CURRENT) USE OF ASPIRIN 08/11/2019 JENARO COSTA N Ot Z79.899 OTHER BEAUTY CULTURIST APPRENTICE (CURRENT) DRUG THERAPY 08/11/2019 JENARO COSTA N Ot Z90.12 ACQUIRED ABSENCE OF LEFT BREAST AND NIPP 10/08/2019 JENARO COSTA [place] Ot 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 10/08/2019 JENARO COSTA N Ot D50.9 IRON DEFICIENCY ANEMIA, UNSPECIFIED 10/08/2019 JENARO COSTA N Ot E03.9 HYPOTHYROIDISM, UNSPECIFIED 10/08/2019 JENARO COSTA N Ot 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 9 HYPOTHYROIDISM, UNSPECIFIED 11/21/2019 YA ROACH MD Ot E03. 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 9 ANEMIA, UNSPECIFIED 01/18/2020 YA ROACH MD Ot I10 ESSENTIAL (PRIMARY) HYPERTENSION 01/18/2020 YA ROACH MD, Ot I25. 10 ATHSCL HEART DISEASE OF [place] CORONARY 01/18/2020 YA ROACH MD, Ot M62. 81 MUSCLE WEAKNESS (GENERALIZED) 01/18/2020 YA ROACH MD, Ot R73. 9 HYPERGLYCEMIA, UNSPECIFIED 01/18/2020 YA ROACH MD, Ot K63. 89 OTHER SPECIFIED DISEASES OF INTESTINE 01/18/2020 YA ROACH MD, Ot K76. 9 LIVER DISEASE, UNSPECIFIED 01/18/2020 YA ROACH MD, Ot Z85. 3 PERSONAL HISTORY OF MALIGNANT NEOPLASM O 01/18/2020 YA ROACH MD, Ot Z90. 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 9 HYPOTHYROIDISM, UNSPECIFIED Procedures There is no data. Results Test Result Range Complete blood count (CBC) with automate d white blood cell (WBC) differential - 09/04/18 06:19 Blood leukocytes automated count (number/volume) 4.0 10*3/uL 4.3-11.0 Blood erythrocytes automated count (number/volume) 3.93 10*6/uL 4.35-5.85 Venous blood hemoglobin measurement (mass/volume) 11.0 g/dL 11.5-16.0 Blood hematocrit (volume fraction) 34 % 35-52 Automated erythrocyte mean corpuscular volume 87 [ foz_us] 80-99 Automated erythrocyte mean corpuscular h emoglobin (mass per erythrocyte) 28 pg 25-34 Automated erythrocyte mean corpuscular h emoglobin concentration measurement (mass/volume) 32 g/dL 32-36 Automated erythrocyte distribution width ratio 13. 3 % 10.0- 14.5 Automated blood platelet count (count/volume) 195 10*3/uL 130-400 Automated blood platelet mean volume measurement 8.5 [foz_us] 7.4-10.4 Automated blood neutrophils/100 leukocytes 54 % 42-75 Automated blood lymphocytes/100 leukocytes 31 % 12-44 Blood monocytes/100 leukocytes 10 % 0-12 Automated blood eosinophils/100 leukocytes 4 % 0-10 Automated blood basophils/100 leukocytes 1 % 0-10 Blood neutrophils automated count (number/volume) 2.2 10*3 1.8-7.8 Blood lymphocytes automated count (number/volume) 1.3 10*3 1.0-4.0 Blood monocytes automated count (number/volume) 0. 4 10*3 0.0-1.0 Automated eosinophil count 0.2 10*3/uL 0 .0-0.3 Automated blood basophil count (count/volume) 0.0 10*3/uL 0.0-0.1 Comprehensive metabolic panel - 09/04/18 06:19 Serum or plasma sodium measurement (moles/volume) 135 mmol/L 135-145 Serum or plasma potassium measurement (moles/volume) 3.2 mmol/L 3.6-5.0 Serum or plasma chloride measurement (moles/volume) 96 mmol/L 98-107 Carbon dioxide 26 mmol/L 21-32 Serum or plasma anion gap determination (moles/volume) 13 mmol/L 5-14 Serum or plasma urea nitrogen measurement (mass/volume ) 26 mg/dL 7-18 Serum or plasma creatinine measurement (mass/volume) 1.13 mg/dL 0.60-1.30 Serum or plasma urea nitrogen/creatinine mass ratio 23 NRG Serum or plasma creatinine measurement w ith calculation of estimated glomerular filtration rate 46 NRG Serum or plasma glucose measurement (mass/volume) 93 mg/dL 70-105 Serum or plasma calcium measurement (mass/volume) 9.6 mg/dL 8.5-10.1 Serum or plasma total bilirubin measurement (mass/volu me) 0.3 mg/dL 0.1-1.0 Serum or plasma alkaline phosphatase alexey surement (enzymatic activity/volume) 71 U/L 40-136 Serum or plasma aspartate aminotransfera se measurement (enzymatic activity/volume) 20 U/L 5-34 Serum or plasma alanine aminotransferase measurement (enzymatic activity/volume) 12 U/L 0-55 Serum or plasma protein measurement (mass/volume) 6.9 g/dL 6.4-8.2 Serum or plasma albumin measurement (mass/volume) 4.1 g/dL 3.2-4.5 CALCIUM CORRECTED 9.5 mg/dL 8.5-10.1 Lipid 1996 panel - 09/04/18 06:19 Serum or plasma triglyceride measurement (mass/volume) 177 mg/dL <150 Serum or plasma cholesterol measurement (mass/volume) 272 mg/dL < 200 Serum or plasma cholesterol in HDL measurement (mass/v olume) 63 mg/dL 40-60 Cholesterol in LDL [mass/volume] in serum or plasma by direct assay 176 mg/dL 1-129 Serum or plasma cholesterol in VLDL measurement (mass/ volume) 35 mg/dL 5-40 Hemoglobin A1c - 09/04/18 06:19 Blood hemoglobin A1C measurement (mass/volume) 5.6 % 4.0-5.6 MEAN BLOOD GLUCOSE 114 % <=126 Complete blood count (CBC) with automate d white blood cell (WBC) differential - 01/01/19 12:54 Blood leukocytes automated count (number/volume) 9.6 10*3/uL 4.3-11.0 Blood erythrocytes automated count (number/volume) 3.36 10*6/uL 4.35-5.85 Venous blood hemoglobin measurement (mass/volume) 9.0 g/dL 11.5-16.0 Blood hematocrit (volume fraction) 29 % 35-52 Automated erythrocyte mean corpuscular volume 86 [ foz_us] 80-99 Automated erythrocyte mean corpuscular h emoglobin (mass per erythrocyte) 27 pg 25-34 Automated erythrocyte mean corpuscular h emoglobin concentration measurement (mass/volume) 31 g/dL 32-36 Automated erythrocyte distribution width ratio 14. 0 % 10.0- 14.5 Automated blood platelet count (count/volume) 206 10*3/uL 130-400 Automated blood platelet mean volume measurement 9.1 [foz_us] 7.4-10.4 Automated blood neutrophils/100 leukocytes 82 % 42-75 Automated blood lymphocytes/100 leukocytes 9 % 12-44 Blood monocytes/100 leukocytes 9 % 0-12 Automated blood eosinophils/100 leukocytes 0 % 0-10 Automated blood basophils/100 leukocytes 0 % 0-10 Blood neutrophils automated count (number/volume) 7.8 10*3 1.8-7.8 Blood lymphocytes automated count (number/volume) 0.9 10*3 1.0-4.0 Blood monocytes automated count (number/volume) 0. 9 10*3 0.0-1.0 Automated eosinophil count 0.0 10*3/uL 0 .0-0.3 Automated blood basophil count (count/volume) 0.0 10*3/uL 0.0-0.1 Comprehensive metabolic panel - 01/01/19 12:54 Serum or plasma sodium measurement (moles/volume) 134 mmol/L 135-145 Serum or plasma potassium measurement (moles/volume) 3.2 mmol/L 3.6-5.0 Serum or plasma chloride measurement (moles/volume) 99 mmol/L 98-107 Carbon dioxide 26 mmol/L 21-32 Serum or plasma anion gap determination (moles/volume) 9 mmol/L 5-14 Serum or plasma urea nitrogen measurement (mass/volume ) 23 mg/dL 7-18 Serum or plasma creatinine measurement (mass/volume) 1.11 mg/dL 0.60-1.30 Serum or plasma urea nitrogen/creatinine mass ratio 21 NRG Serum or plasma creatinine measurement w ith calculation of estimated glomerular filtration rate 47 NRG Serum or plasma glucose measurement (mass/volume) 125 mg/dL 70-105 Serum or plasma calcium measurement (mass/volume) 8.6 mg/dL 8.5-10.1 Serum or plasma total bilirubin measurement (mass/volu me) 0.3 mg/dL 0.1-1.0 Serum or plasma alkaline phosphatase alexey surement (enzymatic activity/volume) 63 U/L 40-136 Serum or plasma aspartate aminotransfera se measurement (enzymatic activity/volume) 20 U/L 5-34 Serum or plasma alanine aminotransferase measurement (enzymatic activity/volume) 11 U/L 0-55 Serum or plasma protein measurement (mass/volume) 6.0 g/dL 6.4-8.2 Serum or plasma albumin measurement (mass/volume) 3.5 g/dL 3.2-4.5 CALCIUM CORRECTED 9.0 mg/dL 8.5-10.1 Serum or plasma troponin i.cardiac measu rement (mass/volume) - 01/01/19 12:54 Serum or plasma troponin i.cardiac measurement (mass/v olume) < ng/mL <0.028 Serum or plasma amylase measurement (enz ymatic activity/volume) - 01/01/19 12:54 Serum or plasma amylase measurement (enzymatic activit y/volume) 59 U/L 25-125 Lipase - 01/01/19 12:54 Lipase 11 U/L 8-78 Complete urinalysis with reflex to cultu re - 01/01/19 13:05 Urine color determination ADRIANE NRG Urine clarity determination SLIGHTLY CLOUDY NRG Urine pH measurement by test strip 7 5-9 Specific gravity of urine by test strip 1.010 1.016-1.022 Urine protein assay by test strip, semi-quantitative 1+ NEGATIVE Urine glucose detection by automated test strip NE GATIVE NEGATIVE Erythrocytes detection in urine sediment by light micr oscopy NEGATIVE NEGATIVE Urine ketones detection by automated test strip NE GATIVE NEGATIVE Urine nitrite detection by test strip POSITIVE NEGATIVE Urine total bilirubin detection by test strip NEGA TIVE NEGATIVE Urine urobilinogen measurement by automated test strip (mass/volume) NORMAL NORMAL Urine leukocyte esterase detection by dipstick 3+ NEGATIVE Automated urine sediment erythrocyte cou nt by microscopy (number/high power field) NONE NRG Automated urine sediment leukocyte count by microscopy (number/high power field) [HPF] NRG Bacteria detection in urine sediment by light microsco py LARGE NRG Squamous epithelial cells detection in u rine sediment by light microscopy 2-5 NRG Crystals detection in urine sediment by light microsco py NONE NRG Casts detection in urine sediment by light microscopy PRESENT NRG Mucus detection in urine sediment by light microscopy NEGATIVE NRG Complete urinalysis with reflex to culture YES NRG Hyaline casts detection in urine sediment by light yoanna roscopy 5-10 NRG Bacterial urine culture - 01/01/19 13:05 Bacterial urine culture [id number] NRG COLONY COUNT >100,000/ML NRG FTX;REPORTABLE SENSITIVITY REPORT RECEIVED 01/03 12 :05 NRG RML Sensitivity Panel - 01/01/19 13:05 Gentamicin susceptibility test by minimum inhibitory c oncentration <= NRG Trimethoprim/sulfamethoxazole susceptibi lity test by minimum inhibitoryconcentration <= NRG Levofloxacin susceptibility test by minimum inhibitory concentration <= NRG Ampicillin susceptibility test by minimum inhibitory c oncentration <= NRG Cefazolin susceptibility test by minimum inhibitory co ncentration <= NRG Ciprofloxacin susceptibility test by minimum inhibitor y concentration <= NRG Meropenem susceptibility test by minimum inhibitory co ncentration <= NRG Nitrofurantoin susceptibility test by mi nimum inhibitory concentration <= NRG Amoxicillin and clavulanate potassium susc YOANNA <= NRG Complete blood count (CBC) with automate d white blood cell (WBC) differential - 07/10/19 09:44 Blood leukocytes automated count (number/volume) 3.7 10*3/uL 4.3-11.0 Blood erythrocytes automated count (number/volume) 3.61 10*6/uL 4.35-5.85 Venous blood hemoglobin measurement (mass/volume) 11.6 g/dL 11.5-16.0 Blood hematocrit (volume fraction) 35 % 35-52 Automated erythrocyte mean corpuscular volume 96 [ foz_us] 80-99 Automated erythrocyte mean corpuscular h emoglobin (mass per erythrocyte) 32 pg 25-34 Automated erythrocyte mean corpuscular h emoglobin concentration measurement (mass/volume) 34 g/dL 32-36 Automated erythrocyte distribution width ratio 12. 3 % 10.0- 14.5 Automated blood platelet count (count/volume) 186 10*3/uL 130-400 Automated blood platelet mean volume measurement 9.1 [foz_us] 7.4-10.4 Automated blood neutrophils/100 leukocytes 60 % 42-75 Automated blood lymphocytes/100 leukocytes 28 % 12-44 Blood monocytes/100 leukocytes 9 % 0-12 Automated blood eosinophils/100 leukocytes 3 % 0-10 Automated blood basophils/100 leukocytes 1 % 0-10 Blood neutrophils automated count (number/volume) 2.2 10*3 1.8-7.8 Blood lymphocytes automated count (number/volume) 1.0 10*3 1.0-4.0 Blood monocytes automated count (number/volume) 0. 3 10*3 0.0-1.0 Automated eosinophil count 0.1 10*3/uL 0 .0-0.3 Automated blood basophil count (count/volume) 0.0 10*3/uL 0.0-0.1 Comprehensive metabolic panel - 07/10/19 09:44 Serum or plasma sodium measurement (moles/volume) 128 mmol/L 135-145 Serum or plasma potassium measurement (moles/volume) 4.3 mmol/L 3.6-5.0 Serum or plasma chloride measurement (moles/volume) 96 mmol/L 98-107 Carbon dioxide 24 mmol/L 21-32 Serum or plasma anion gap determination (moles/volume) 8 mmol/L 5-14 Serum or plasma urea nitrogen measurement (mass/volume ) 12 mg/dL 7-18 Serum or plasma creatinine measurement (mass/volume) 0.98 mg/dL 0.60-1.30 Serum or plasma urea nitrogen/creatinine mass ratio 12 NRG Serum or plasma creatinine measurement w ith calculation of estimated glomerular filtration rate 54 NRG Serum or plasma glucose measurement (mass/volume) 91 mg/dL 70-105 Serum or plasma calcium measurement (mass/volume) 8.8 mg/dL 8.5-10.1 Serum or plasma total bilirubin measurement (mass/volu me) 0.3 mg/dL 0.1-1.0 Serum or plasma alkaline phosphatase alexey surement (enzymatic activity/volume) 39 U/L 40-136 Serum or plasma aspartate aminotransfera se measurement (enzymatic activity/volume) 22 U/L 5-34 Serum or plasma alanine aminotransferase measurement (enzymatic activity/volume) 13 U/L 0-55 Serum or plasma protein measurement (mass/volume) 6.0 g/dL 6.4-8.2 Serum or plasma albumin measurement (mass/volume) 3.8 g/dL 3.2-4.5 CALCIUM CORRECTED 9.0 mg/dL 8.5-10.1 THYROID STIMULATING HORMONE - 10/31/19 1 1:37 THYROID STIMULATING HORMONE 1.48 u[iU]/mL 0.35-4.94 Complete urinalysis with reflex to cultu re - 01/18/20 16:30 Urine color determination YELLOW NRG Urine clarity determination CLEAR NR G Urine pH measurement by test strip 5.5 5-9 Specific gravity of urine by test strip 1.010 1.016-1.022 Urine protein assay by test strip, semi-quantitative NEGATIVE NEGATIVE Urine glucose detection by automated test strip NE GATIVE NEGATIVE Erythrocytes detection in urine sediment by light micr oscopy NEGATIVE NEGATIVE Urine ketones detection by automated test strip NE GATIVE NEGATIVE Urine nitrite detection by test strip NEGATIVE NEGATIVE Urine total bilirubin detection by test strip NEGA TIVE NEGATIVE Urine urobilinogen measurement by automated test strip (mass/volume) 0.2 mg/dL < = 1.0 Urine leukocyte esterase detection by dipstick TRA CE NEGATIVE Automated urine sediment erythrocyte cou nt by microscopy (number/high power field) NONE NRG Automated urine sediment leukocyte count by microscopy (number/high power field) NONE NRG Bacteria detection in urine sediment by light microsco py TRACE NRG Squamous epithelial cells detection in u rine sediment by light microscopy RARE NRG Crystals detection in urine sediment by light microsco py NONE NRG Casts detection in urine sediment by light microscopy NONE NRG Mucus detection in urine sediment by light microscopy NEGATIVE NRG Complete urinalysis with reflex to culture NO NRG Encounters ACCT No. Visit Date/Time Discharge Status Pt. Type Provider Facility Loc./Unit Complaint [id number] 01/18/2020 14:25:00 18:20:00 DIS Emergency MARIA GUADALUPE ROMERO [facility] ER PAIN IN BOTH HIPS [id number] 10/31/2019 11:27:00 23:59:59 CLS Outpatient YA ROACH MD [facility] LAB E03.9, HYPOTHYROIDISM [id number] 10/09/2019 00:10:00 23:59:59 CLS Preadmit JENARO COSTA [facility] ONC [id number] 09/23/2019 10:44:00 00:01:00 DIS Outpatient JENARO COSTA [facility] ONC [id number] 03/26/2019 09:52:00 00:01:00 DIS Outpatient JENARO COSTA [facility] ONC [id number] 02/04/2019 10:01:00 23:59:59 CLS Outpatient YA ROACH MD [facility] RAD GI LEAK FOLLOW UP, ABD PAIN [id number] 01/01/2019 12:29:00 17:42:00 DIS Emergency RICHARTYRONE [facility] ER SOA;SHOULDER PAIN [id number] 09/04/2018 06:36:00 23:59:59 CLS Outpatient YA ROACH MD [facility] LAB ANEMIA,MUSCLE WEAKNESS, HTN [id number] 08/12/2018 00:58:00 23:59:59 CLS Preadmit NESTOR MAIER DO [facility] CR3 CARDIAC REHAB [id number] 07/17/2018 08:46:00 00:01:00 DIS Outpatient NESTOR MAIER DO [facility] CR3 CARDIAC REHAB [id number] 06/07/2018 07:00:00 23:59:59 CLS Outpatient DARRION SPAIN AKUA Vi [facility] CR3 CARDIAC REHAB [id number] 05/13/2018 07:50:00 23:59:59 CLS Outpatient NESTOR MAIER DO [facility] CR STABLE ANGINA [id number] 05/08/2018 08:00:00 00:01:00 DIS Outpatient NESTOR MAIER DO [facility] CR3 CARDIAC REHAB [id number] 03/08/2018 09:37:00 00:01:00 DIS Outpatient NESTOR MAIER DO [facility] CR STABLE ANGINA [id number] 06/14/2018 10:00:00 Document Registration
== END 2020-01-18 18:20 | disposition home or self-care (01) ==
LOC: EDUNIT# 14:24 → ER 14:25
DX: M16.11 Unilateral primary osteoarthritis, right hip (principal); M54.16 Radiculopathy, lumbar region; R51 Headache; I25.2 Old myocardial infarction; Z85.3 Personal history of malignant neoplasm of breast; Z95.5 Presence of coronary angioplasty implant and graft; Z88.8 Allergy status to other drugs, medicaments and biological substances; Z88.0 Allergy status to penicillin
CPT/HCPCS: 70450; 72131; 73502; 81000

== ENCOUNTER → 2020-01-28 | Outpatient (CLI) | payer MEDICARE ==
[~2020-01-28] MED LIST changes: +BACL10TA PO; -BARIUM SUSPENSION 2.1% (VANILLA SILQ) 450 ML PO ONE; -HOLD METFORMIN - RECEIVED CONTRAST 20 ML VIAL IV SCH; -IOHEXOL 350 MG/ML 100 ML (OMNIPAQUE 350) VIAL IV ONE; +MELO7.5T46 PO; +PRD20T PO
--- NOTE | 2020-01-28 14:09 | Diagnostic Imaging Report ---
PROCEDURE: MRI lumbar spine. TECHNIQUE: Multiplanar, multisequence MRI of the lumbar spine was performed without contrast. INDICATION: Severe low back pain. COMPARISON: No prior studies are available for comparison. FINDINGS: Curvature and alignment of the lumbar spine is normal. Vertebral body heights are maintained. The marrow signal is somewhat heterogeneous which may be owing to osteoporosis. No discrete geographic marrow lesion is detected. No acute compression fracture is seen. Generalized degenerative disc disease with variable disc space narrowing and desiccation is noted. The conus is unremarkable at the L1 level. T12-L1: The central canal is patent. Neuroforamina are patent. L1-L2: Endplate osteophytes indent the ventral thecal sac but central canal remains patent. There is narrowing of the left lateral recess. Right lateral recess is patent. Neuroforamina are patent. L2-L3: The central canal and neuroforamina are widely patent. L3-L4: Central canal and neuroforamina are patent. There is ligamentous thickening. L4-L5: Broad-based disc/osteophyte complex flattens the ventral thecal sac. There is significant narrowing of the lateral recesses bilaterally. There is mild narrowing of the central canal. Moderate bilateral neuroforaminal narrowing is seen. L5-S1: Broad-based disc/osteophyte complex indents the ventral thecal sac. Central canal remains patent. Mild left neuroforaminal narrowing is seen. Paraspinous tissues are unremarkable. IMPRESSION: Lumbar spondylosis with central canal, lateral recess, and neuroforaminal narrowing, described level by level above. No acute compression fracture is detected. Dictated by: Dictated on workstation # [id number]
== END ==
LOC: RAD 12:26
PROVIDERS: ATTEND Family Medicine
DX: M47.816 Spondylosis without myelopathy or radiculopathy, lumbar region (principal)
CPT/HCPCS: 72148

== ENCOUNTER → 2020-04-06 | Outpatient (CLI) | payer MEDICARE ==
[2020-04-06 14:33] LABS: BASOPHILS % (AUTO) 1 % (0-10); EOSINOPHILS # (AUTO) 0.2 10^3/uL (0.0-0.3); EOSINOPHILS % (AUTO) 4 % (0-10); HEMATOCRIT 33 % (35-52); LYMPHOCYTES # (AUTO) 1.3 X 10^3 (1.0-4.0); LYMPHOCYTES % (AUTO) 24 % (12-44); MEAN CORPUSCULAR HEMOGLOBIN 32 PG (25-34); MEAN CORPUSCULAR HGB CONC 34 G/DL (32-36); MEAN CORPUSCULAR VOLUME 95 FL (80-99); MEAN PLATELET VOLUME 8.4 FL (7.4-10.4); MONOCYTES # (AUTO) 0.5 X 10^3 (0.0-1.0); MONOCYTES % (AUTO) 10 % (0-12); NEUTROPHILS # (AUTO) 3.2 X 10^3 (1.8-7.8); NEUTROPHILS % (AUTO) 60 % (42-75); PLATELET COUNT 186 10^3/uL (130-400); RED CELL DISTRIBUTION WIDTH 12.7 % (10.0-14.5); WHITE BLOOD COUNT 5.2 10^3/uL (4.3-11.0)
[2020-04-06 14:56] LABS: ALBUMIN 3.8 GM/DL (3.2-4.5); BILIRUBIN,TOTAL 0.2 MG/DL (0.1-1.0); CALCIUM 8.9 MG/DL (8.5-10.1); CREATININE SERUM 1.26 MG/DL (0.60-1.30); POTASSIUM 3.5 MMOL/L (3.6-5.0); TOTAL PROTEIN 6.7 GM/DL (6.4-8.2)
== END ==
LOC: EDSTATUS 10-09 09:18 → ONC 14:19
PROVIDERS: ATTEND Internal Medicine Hematology & Oncology
DX: D05.12 Intraductal carcinoma in situ of left breast (principal); I10 Essential (primary) hypertension; E11.9 Type 2 diabetes mellitus without complications; I25.10 Atherosclerotic heart disease of native coronary artery without angina pectoris; Z90.12 Acquired absence of left breast and nipple
CPT/HCPCS: 80053; 85025; 99213

== ENCOUNTER → 2020-04-13 | Outpatient (CLI) | payer MEDICARE ==
--- NOTE | 2020-04-13 13:06 | Diagnostic Imaging Report ---
PROCEDURE: CT neck soft tissue without contrast. TECHNIQUE: Multiple contiguous axial images were obtained through the neck without the use of intravenous contrast. Auto Exposure Controls were utilized during the CT exam to meet ALARA standards for radiation dose reduction. INDICATION: Right-sided neck mass. COMPARISON: There are no prior studies available for comparison. FINDINGS: Reportedly, there is clinical concern regarding a mass in the right neck. A marker was placed over the area of concern. There is no discrete solid or cystic mass evident in this region. The internal jugular vein is visualized at this level. The internal jugular vein on the right is nearly 2-3 times the size of the internal jugular vein on the left. This is most likely a developmental variant. The submandibular glands and the parotid glands are symmetrical and within normal limits. The thyroid gland is small but appears homogeneous. There is no other mass or adenopathy noted. The images through the skull base show no sign of an acute intracranial abnormality; however, there is complete opacification of the right sphenoid sinus by mucosal thickening and fluid. The sinuses, where visualized, are otherwise clear. The bone windows show no sign of a fracture or of a destructive lesion. There is degenerative disc and bony disease throughout the cervical spine with the C5-C6 level most severely affected. There is a small patchy area of increased density in the right apex. This could be secondary to scar formation or perhaps to mild pneumonia/atelectasis. Clinical followup is recommended. IMPRESSION: 1. There is no discrete solid or cystic mass in the area of the patient's palpable abnormality in the right neck. There is a prominent internal jugular vein on the right at this level. This is felt to be a developmental variant. 2. There is no other mass or adenopathy noted. 3. There is severe sphenoid sinusitis on the right. 4. The patchy density in the right apex may be secondary to scar formation alone. The possibility that there is an element of mild acute pneumonia/atelectasis should also be considered. Dictated by: Dictated on workstation # [id number]
== END ==
LOC: RAD 11:42
PROVIDERS: ATTEND Nurse Practitioner Adult Health
DX: J32.3 Chronic sphenoidal sinusitis (principal); J98.4 Other disorders of lung; R22.1 Localized swelling, mass and lump, neck; D05.12 Intraductal carcinoma in situ of left breast
CPT/HCPCS: 70490

== ENCOUNTER → 2020-07-13 | Outpatient (CLI) | payer MEDICARE ==
--- NOTE | 2020-07-13 12:20 | Diagnostic Imaging Report ---
INDICATION: Right-sided chest pain. PA and lateral chest obtained at 11:17 a.m. and compared to 01/01/2019. FINDINGS: Heart and mediastinal silhouette are normal in appearance. There is a new area of increased density along the right middle lobe. There is no pneumothorax or pleural fluid. There is hyperinflation. IMPRESSION: New density seen in right middle lobe which may represent infiltrate or atelectasis. There is underlying mild COPD change. Left lung is clear. Recommend short-term follow-up or chest CT as clinically warranted. Dictated by: Dictated on workstation # [id number]
--- NOTE | 2020-07-13 13:27 | Diagnostic Imaging Report ---
INDICATION: Neck pain. TECHNIQUE: Four views of the cervical spine were obtained. FINDINGS: The alignment of the cervical spine is normal. There is degenerative disc disease at C5-C6 and C6-C7. There is no fracture or traumatic subluxation. The odontoid is intact. The lateral masses are well aligned. IMPRESSION: Mid and lower cervical spondylosis and degenerative disc disease as described. Dictated by: Dictated on workstation # [id number]
== END ==
LOC: RAD 10:58
PROVIDERS: ATTEND Family Medicine
DX: M50.322 Other cervical disc degeneration at C5-C6 level (principal); M47.812 Spondylosis without myelopathy or radiculopathy, cervical region; J98.4 Other disorders of lung
CPT/HCPCS: 71046; 72040

== ENCOUNTER → 2020-10-22 | Outpatient (CLI) | payer MEDICARE ==
[~2020-10-22] MED LIST changes: +ASPI-1238 PO; +CARV12.53 PO; +CNC1KV IM; +FLUT16SP22 NSEACH; +FURO20TA4 PO; +HYDR-3820 PO; +ISOS30TA3 PO; +LACT1CAP39 PO; +LEVO100T PO; +LIDO700A45 TD; +MAGN250T13 PO; +MELA10TA2 PO; +METO2.5T PO; +MULT-1021 PO; +NITR0.4T39 SL; +PANT40TA52 PO; +PEDI18TA2 PO; +POTA20TA15 PO; +TAMO20TA2 PO; +TOPI50TA13 PO; +ZINC50TA11 PO
[2020-10-22 14:14] LABS: BASOPHILS # (AUTO) 0.1 10^3/uL (0.0-0.1); BASOPHILS % (AUTO) 1 % (0-10); EOSINOPHILS # (AUTO) 0.2 10^3/uL (0.0-0.3); EOSINOPHILS % (AUTO) 3 % (0-10); HEMATOCRIT 36 % (35-52); HEMOGLOBIN 11.6 g/dL (11.5-16.0); LYMPHOCYTES # (AUTO) 1.5 10^3/uL (1.0-4.0); LYMPHOCYTES % (AUTO) 31 % (12-44); MEAN CORPUSCULAR HEMOGLOBIN 32 pg (25-34); MEAN CORPUSCULAR HGB CONC 32 g/dL (32-36); MEAN CORPUSCULAR VOLUME 98 fL (80-99); MEAN PLATELET VOLUME 9.4 fL (9.0-12.2); MONOCYTES # (AUTO) 0.4 10^3/uL (0.0-1.0); MONOCYTES % (AUTO) 8 % (0-12); NEUTROPHILS # (AUTO) 2.8 10^3/uL (1.8-7.8); NEUTROPHILS % (AUTO) 57 % (42-75); PLATELET COUNT 172 10^3/uL (130-400); WHITE BLOOD COUNT 4.9 10^3/uL (4.3-11.0)
[2020-10-22 14:35] LABS: BILIRUBIN,TOTAL 0.3 MG/DL (0.1-1.0); CALCIUM 9.2 MG/DL (8.5-10.1); CREATININE SERUM 1.47 MG/DL (0.60-1.30); POTASSIUM 4.1 MMOL/L (3.6-5.0); TOTAL PROTEIN 6.9 GM/DL (6.4-8.2)
== END ==
LOC: ONC 14:04
PROVIDERS: ATTEND Internal Medicine Hematology & Oncology
DX: D05.12 Intraductal carcinoma in situ of left breast (principal); N18.30 Chronic kidney disease, stage 3 unspecified; E03.9 Hypothyroidism, unspecified; R63.4 Abnormal weight loss; Z79.810 Long term (current) use of selective estrogen receptor modulators (SERMs)
CPT/HCPCS: 80053; 84443; 85025; G0463; 99213

== ENCOUNTER 2020-11-14 12:37 | Inpatient (IN) | payer MEDICARE ==
[~2020-11-14] VITALS: Ht 162 cm; Wt 49.9 kg
[~2020-11-14 12:37] MED LIST changes: -ASPI-1238 PO; -CARV12.53 PO; -CNC1KV IM; -FLUT16SP22 NSEACH; -FURO20TA4 PO; -HYDR-3820 PO; -ISOS30TA3 PO; -LACT1CAP39 PO; -LEVO100T PO; -LIDO700A45 TD; -MAGN250T13 PO; -MELA10TA2 PO; -METO2.5T PO; -MULT-1021 PO; -NITR0.4T39 SL; -PANT40TA52 PO; -PEDI18TA2 PO; -POTA20TA15 PO; -TAMO20TA2 PO; -TOPI50TA13 PO; -ZINC50TA11 PO
[2020-11-14] MEDS ORDERED: fentaNYL INJECTION 100 MCG/2 ML AMP IVP ONE ×2 (12:45→13:00)
--- NOTE | 2020-11-14 12:46 | ED Abdominal Pain ---
General Chief Complaint: Abdominal/GI Problems Stated Complaint: ABD PAIN Source of Information: Patient Exam Limitations: No Limitations History of Present Illness Date Seen by Provider: Nov 14, 2020 Time Seen by Provider: 12:44 Initial Comments To ER with right lower quadrant abdominal pain associated with pain all across the low back. No vomiting, the pain comes and goes. Timing/Duration: 1-2 Days Severity/Quality: Moderate Location: RLQ Radiation: No Radiation Activities at Onset: None Allergies and Home Medications Allergies Coded Allergies: carbamazepine (Verified Allergy, Unknown, 01/01/19) cyproheptadine (Verified Allergy, Unknown, 01/01/19) esomeprazole (Verified Allergy, Unknown, 01/01/19) indomethacin (Verified Allergy, Unknown, 01/01/19) lorazepam (Verified Allergy, Unknown, 01/01/19) simvastatin (Verified Allergy, Unknown, 01/01/19) Uncoded Allergies: PENICILLIN (Allergy, Unknown, 01/01/19) Home Medications Baclofen 10 Mg Tablet, 10 MG PO TID PRN for SPASMS Prescribed by: MARIA GUADALUPE SHAIKH on 01/18/201719 Meloxicam 7.5 Mg Tablet, 7.5 MG PO DAILY Prescribed by: MARIA GUADALUPE SHAIKH on 01/18/201719 Prednisone 20 Mg Tab, 40 MG PO DAILY Prescribed by: MARIA GUADALUPE SHAIKH on 01/18/201719 Patient Home Medication List Home Medication List Reviewed: Yes Review of Systems Review of Systems Constitutional: see HPI EENTM: No Symptoms Reported Respiratory: No Symptoms Reported Cardiovascular: No Symptoms Reported Gastrointestinal: See HPI, Abdominal Pain Genitourinary: No Symptoms Reported Musculoskeletal: no symptoms reported Skin: no symptoms reported Psychiatric/Neurological: No Symptoms Reported Endocrine: No Symptoms Reported Hematologic/Lymphatic: No Symptoms Reported Past Eajzecc-Lzsddy-Yalfku Hx Patient Social History 2nd Hand Smoke Exposure: No Recent Hopitalizations: Yes (DEC 2018-MASTECTOMY) Immunizations Up To Date Date of Pneumonia Vaccine: Aug 11, 2019 Date of Influenza Vaccine: Sep 11, 2019 Seasonal Allergies Seasonal Allergies: No Past Medical History Surgeries: Yes Abdominal, Appendectomy, Bladder Surgery, Bowel Surgery, Breast, Cardiac, Coronary Stent, Eye Surgery, Gallbladder, Hysterectomy, Orthopedic Respiratory: No Cardiac: Yes Heart Attack Neurological: Yes Headaches /Migraines Genitourinary: No Gastrointestinal: No Musculoskeletal: No Endocrine: Yes Diabetes, Non-Insulin dep HEENT: Yes Cataract Cancer: Yes Breast Did You Recieve Any Treatments: Yes What Type of Treatment Did You: Surgical Intervention Psychosocial: No Integumentary: No Blood Disorders: Yes Adverse Reaction/Blood Tranf: No Family Medical History No Pertinent Family Hx Physical Exam Vital Signs Vital Signs - First Documented 11/14/20 12:40 Temp 36.0 Pulse 77 Resp 18 B/P (MAP) 153/103 (120) Pulse Ox 98 Capillary Refill : Height/Weight/BMI Height: 5'4.00" Weight: 128lbs. oz. 58.694791lt; 18.00 BMI Method:Stated General Appearance: WD/WN, no apparent distress, thin, other (Rates pain at 7 out of 10, appears to wax and wane as she will occasionally grimace) Respiratory: no respiratory distress, no accessory muscle use Gastrointestinal: normal bowel sounds, non tender, soft Neurologic/Psychiatric: alert, normal mood/affect, oriented x 3 Skin: normal color, warm/dry Progress/Results/Core Measures Results/Orders Lab Results Laboratory Tests Test 11/14/20 13:00 Range/Units White Blood Count 2.7 L 4.3-11.0 10^3/uL Red Blood Count 3.61 L 3.80-5.11 10^6/uL Hemoglobin 11.5 11.5-16.0 g/dL Hematocrit 34 L 35-52 % Mean Corpuscular Volume 95 80-99 fL Mean Corpuscular Hemoglobin 32 25-34 pg Mean Corpuscular Hemoglobin Concent 33 32-36 g/dL Red Cell Distribution Width 11.9 10.0-14.5 % Platelet Count 120 L 130-400 10^3/uL Mean Platelet Volume 9.6 9.0-12.2 fL Immature Granulocyte % (Auto) 0 % Neutrophils (%) (Auto) 66 42-75 % Lymphocytes (%) (Auto) 17 12-44 % Monocytes (%) (Auto) 15 H 0-12 % Eosinophils (%) (Auto) 0 0-10 % Basophils (%) (Auto) 0 0-10 % Neutrophils # (Auto) 1.8 1.8-7.8 10^3/uL Lymphocytes # (Auto) 0.5 L 1.0-4.0 10^3/uL Monocytes # (Auto) 0.4 0.0-1.0 10^3/uL Eosinophils # (Auto) 0.0 0.0-0.3 10^3/uL Basophils # (Auto) 0.0 0.0-0.1 10^3/uL Immature Granulocyte # (Auto) 0.0 0.0-0.1 10^3/uL Sodium Level 131 L 135-145 MMOL/L Potassium Level 3.4 L 3.6-5.0 MMOL/L Chloride Level 94 L 98-107 MMOL/L Carbon Dioxide Level 27 21-32 MMOL/L Anion Gap 10 5-14 MMOL/L Blood Urea Nitrogen 23 H 7-18 MG/DL Creatinine 1.51 H 0.60-1.30 MG/DL Estimat Glomerular Filtration Rate 33 BUN/Creatinine Ratio 15 Glucose Level 106 H 70-105 MG/DL Calcium Level 8.8 8.5-10.1 MG/DL Corrected Calcium 8.9 8.5-10.1 MG/DL Total Bilirubin 0.2 0.1-1.0 MG/DL Aspartate Amino Transf (AST/SGOT) 21 5-34 U/L Alanine Aminotransferase (ALT/SGPT) 14 0-55 U/L Alkaline Phosphatase 32 L 40-136 U/L Total Protein 6.6 6.4-8.2 GM/DL Albumin 3.9 3.2-4.5 GM/DL My Orders Orders - SUMMER VANEGAS APRN Ct Abd/Pelvis Wo(Kidney Stone) (11/14/20 12:42) Fentanyl Injection (Sublimaze Injection (11/14/20 12:45) Cbc With Automated Diff (11/14/20 12:42) Comprehensive Metabolic Panel (11/14/20 12:42) Ua Culture If Indicated (11/14/20 12:42) Ed Iv/Invasive Line Start (11/14/20 12:42) Fentanyl Injection (Sublimaze Injection (11/14/20 13:00) Hydromorphone Injection (Dilaudid Inject (11/14/20 14:00) Hydromorphone Injection (Dilaudid Inject (11/14/20 14:45) Medications Given in ED Current Medications Medications Dose Ordered Sig/Samson Route Start Time Stop Time Status Last Admin Dose Admin Fentanyl Citrate 50 mcg ONCE ONCE IVP 11/14/20 13:00 11/14/20 13:01 DC 11/14/20 12:50 50 MCG Hydromorphone HCl 0.5 mg ONCE ONCE IV 11/14/20 14:00 11/14/20 14:01 DC 11/14/20 13:57 0.5 MG Vital Signs/I&O 11/14/20 12:40 Temp 36.0 Pulse 77 Resp 18 B/P (MAP) 153/103 (120) Pulse Ox 98 Departure Communication (Admissions) Time/Spoke to Admitting Phy: 14:[address] Marshall, will admit, n.p.o., IV fluids nausea and pain control. The patient's daughter called and would like to have her transferred to [facility] however I spoke with both [place] and [facility] in [place] both of which are on diversion. Impression Primary Impression: SBO (small bowel obstruction) Disposition: ADMITTED INPATIENT Condition: Stable Admissions Decision to Admit Reason: Admit from ER (General) Decision to Admit/Date: Nov 14, 2020 Time/Decision to Admit Time: 13:58 Departure-Patient Inst. Referrals: YA ROACH MD (PCP/Family) Primary Care Physician SUMMER VANEGAS APRN Nov 14, 2020 12:46
[2020-11-14 13:12] LABS: BASOPHILS % (AUTO) 0 % (0-10); EOSINOPHILS % (AUTO) 0 % (0-10); HEMATOCRIT 34 % (35-52); HEMOGLOBIN 11.5 g/dL (11.5-16.0); LYMPHOCYTES # (AUTO) 0.5 10^3/uL (1.0-4.0); LYMPHOCYTES % (AUTO) 17 % (12-44); MEAN CORPUSCULAR HEMOGLOBIN 32 pg (25-34); MEAN CORPUSCULAR HGB CONC 33 g/dL (32-36); MEAN CORPUSCULAR VOLUME 95 fL (80-99); MEAN PLATELET VOLUME 9.6 fL (9.0-12.2); MONOCYTES # (AUTO) 0.4 10^3/uL (0.0-1.0); MONOCYTES % (AUTO) 15 % (0-12); NEUTROPHILS # (AUTO) 1.8 10^3/uL (1.8-7.8); NEUTROPHILS % (AUTO) 66 % (42-75); PLATELET COUNT 120 10^3/uL (130-400); WHITE BLOOD COUNT 2.7 10^3/uL (4.3-11.0)
[2020-11-14 13:15] LABS: ALBUMIN 3.9 GM/DL (3.2-4.5); POTASSIUM 3.4 MMOL/L (3.6-5.0)
[2020-11-14 13:16] LABS: CALCIUM 8.8 MG/DL (8.5-10.1)
[2020-11-14 13:17] LABS: TOTAL PROTEIN 6.6 GM/DL (6.4-8.2)
[2020-11-14 13:19] LABS: BILIRUBIN,TOTAL 0.2 MG/DL (0.1-1.0)
[2020-11-14 13:21] LABS: CREATININE SERUM 1.51 MG/DL (0.60-1.30)
--- NOTE | 2020-11-14 13:54 | Diagnostic Imaging Report ---
PROCEDURE: CT urinary tract, rule out kidney stone. TECHNIQUE: Multiple contiguous axial images were obtained through the abdomen and pelvis without the use of intravenous contrast. Auto Exposure Controls were utilized during the CT exam to meet ALARA standards for radiation dose reduction. INDICATION: Abdominal pain. COMPARISON: February 04, 2019. FINDINGS: Minimal scarring and/or atelectasis within the right middle lobe and lingula. Postsurgical changes associated with the stomach are again identified. Cholecystectomy. The unenhanced liver and spleen are unremarkable. The adrenal glands are unremarkable. The unenhanced pancreas is unremarkable. The kidneys are unremarkable without evidence of hydronephrosis. Advanced vascular calcifications without aneurysmal dilatation of the abdominal aorta. The urinary bladder is unremarkable. The uterus is not definitely visualized. Postsurgical changes are identified associated with the bowel within the lower pelvis just to the right of midline. Loops of small bowel within the lower pelvis are borderline dilated measuring up to 3 cm. The largest apparent region of dilated bowel is secondary to postsurgical anastomosis and appears relatively similar to the prior examination. No pneumatosis. Evidence of prior anterior abdominal wall hernia repair with mesh in place. No focal transition point. Residual colon is predominantly gas and stool-filled. No significant adenopathy, free air, or free fluid. Scattered osseous degenerative changes without acute osseous abnormality. IMPRESSION: Borderline dilated loops of small bowel within the right lower quadrant without discrete transition point. This may simply be postsurgical in nature, though low-grade obstruction not completely excluded. Extensive postsurgical changes throughout the bowel as well as involving the anterior abdominal wall and cholecystectomy. Additional findings as above. Dictated by: Dictated on workstation # [id number]
[2020-11-14] MEDS ORDERED: HYDROmorphone 2 MG/ML VIAL (DILAUDID) IV ONE ×2 (14:00→14:45)
--- NOTE | 2020-11-14 14:21 | NUR ---
DAUGHTER CALLED TO SPEAK TO Spencer RAMIREZ
--- NOTE | 2020-11-14 16:24 | NUR ---
MARIA LUZ CANTU admitted to room 420-1, with an admitting diagnosis of SBO, on 11/14/20 from ED via , accompanied by STAFF. MARIA LUZ CANTU introduced to surroundings, call light, bed controls, phone, TV, temperature control, lights, meal times, smoking policy, visitor policy, side rail policy, bathrooms and showers. Patient Rights given to patient in the handbook. MARIA LUZ CANTU verbalizes understanding that [facility] is not responsible for the loss or damage to any personal effects or valuables that are kept in the patients posession during their hospitalization. The following Patient Care Plans were discussed with the PT: Discharge Planning, ABD PAIN. MARIA LUZ CANTU verbalizes understanding of Interdisciplinary Patient Education. Patient and/or family were informed about the Rapid Response Team and its purpose.
[2020-11-14] MEDS: LACTATED RINGERS 1,000 ML IV SCH (16:52)
[2020-11-14] MEDS: HYDROmorphone 2 MG/ML VIAL (DILAUDID) IV PRN ×3 (16:52→23:21)
--- NOTE | 2020-11-14 16:52 | NUR ---
DILAUDID 1MG IV FOR PAIN. PLACED O2 END TIDAL/CONT PULSE OX BY RT.
[2020-11-14 17:01] VITALS: BP 155/69
[2020-11-14] MEDS ORDERED: fentaNYL INJECTION 100 MCG/2 ML AMP IVP PRN (18:00)
[2020-11-14 19:09] VITALS: BP 140/60
--- NOTE | 2020-11-14 19:13 | HISTORY AND PHYSICAL ---
DATE OF SERVICE: ADMITTING PRIMARY CARE PHYSICIAN: Dr. David Pittman. HISTORY OF PRESENT ILLNESS: The patient is an 85-year-old female who presented to the Emergency Department with crampy right lower abdominal quadrant pain with some mild nausea on an intermittent basis; however, no vomiting. She states that this persisted and decided to present to the Emergency Department. A CT scan was performed, which did show some dilated loops of small bowel; however, no area of transition to indicate a small-bowel obstruction and this may indicate a partial small-bowel obstruction versus an ileus. She has had previous abdominal surgeries before in the past as well. PAST MEDICAL HISTORY: Diabetes, migraine headaches, history of myocardial infarction, and hypercholesterolemia. PAST SURGICAL HISTORY: Bladder suspension, previous bowel resection, appendectomy, cardiac catheterization and stent placement, breast biopsy, laparoscopic cholecystectomy and hysterectomy. ALLERGIES: CARBAMAZEPINE, CYPROHEPTADINE, ESOMEPRAZOLE, INDOMETHACIN, LORAZEPAM, SIMVASTATIN, PENICILLIN. MEDICATIONS: Baclofen 10 mg t.i.d., meloxicam 7.5 mg daily, and prednisone 20 mg daily. SOCIAL HISTORY: Negative smoke, negative alcohol. VITAL SIGNS: Temperature 36.0, blood pressure 153/103, pulse 77, respirations 18, pulse ox 98% on room air. REVIEW OF SYSTEMS: A well-nourished female, currently in no acute distress. She is not experiencing any shortness of breath or difficulty breathing. No chest pain, palpitations, diaphoresis. Intermittent episodes of nausea with associated right lower abdominal quadrant pain. No vomiting. She states that her last bowel movement was approximately 1 day ago. Does not report any red blood per rectum nor any dark tarry stools. No fever or chills, no recent inadvertent weight loss. All other review of systems negative. PHYSICAL EXAMINATION: CHEST: A few scattered rales bilaterally. HEART: Regular, no murmurs. EXTREMITIES: No lower extremity edema, negative Homans sign. HEENT: No scleral icterus. NECK: No cervical lymphadenopathy. ABDOMEN: Soft, nondistended. There is mild discomfort in the right lower abdominal quadrant upon deep palpation. There are no peritoneal signs. No hernias palpable. SKIN: Warm, dry. LABORATORY DATA: WBC 2.7, hemoglobin 11.5, hematocrit 34, and platelets 120. BUN 23, creatinine 1.51. ASSESSMENT AND PLAN: An 85-year-old female with partial small-bowel obstruction secondary to adhesions versus an ileus. We will treat her conservatively with IV hydration as well as bowel rest and adequate pain medication and antianxiety medication as necessary. When she does have some bowel function, we will proceed with a clear liquid diet and advanced in a stepwise fashion. If her symptoms do persist, we would then proceed with a small bowel follow through with Gastrografin. Job ID: [id number] DocumentID: [id number] Dictated Date: 11/14/2020 17:27:08 Nurse Plastics Date: 11/14/2020 19:12:48 Dictated By: KIRBY DUNAWAY MD
[2020-11-15] VITALS (7 sets, daily range): BP systolic 111–175; BP diastolic 59–70
[2020-11-15] MEDS: LACTATED RINGERS 1,000 ML IV SCH ×3 (00:50→16:58)
[2020-11-15] MEDS: HYDROcodone/APAP 7.5 MG/325 MG (LORTAB, LORCET PLUS) TABLET PO PRN ×4 (00:51→15:23)
[2020-11-15] MEDS: HYDROmorphone 2 MG/ML VIAL (DILAUDID) IV PRN ×5 (05:21→20:35)
[2020-11-15 07:36] LABS: ALBUMIN 3.3 GM/DL (3.2-4.5); POTASSIUM 3.3 MMOL/L (3.6-5.0)
[2020-11-15 07:38] LABS: TOTAL PROTEIN 5.8 GM/DL (6.4-8.2)
[2020-11-15 07:40] LABS: BILIRUBIN,TOTAL 0.2 MG/DL (0.1-1.0)
[2020-11-15 07:42] LABS: CREATININE SERUM 0.98 MG/DL (0.60-1.30)
[2020-11-15 08:53] LABS: BASOPHILS % (AUTO) 0 % (0-10); EOSINOPHILS % (AUTO) 0 % (0-10); HEMATOCRIT 31 % (35-52); HEMOGLOBIN 10.5 g/dL (11.5-16.0); LYMPHOCYTES # (AUTO) 0.5 10^3/uL (1.0-4.0); LYMPHOCYTES % (AUTO) 18 % (12-44); MEAN CORPUSCULAR HEMOGLOBIN 32 pg (25-34); MEAN CORPUSCULAR HGB CONC 34 g/dL (32-36); MEAN CORPUSCULAR VOLUME 95 fL (80-99); MEAN PLATELET VOLUME 9.6 fL (9.0-12.2); MONOCYTES # (AUTO) 0.4 10^3/uL (0.0-1.0); MONOCYTES % (AUTO) 13 % (0-12); NEUTROPHILS # (AUTO) 1.9 10^3/uL (1.8-7.8); NEUTROPHILS % (AUTO) 68 % (42-75); PLATELET COUNT 92 10^3/uL (130-400); WHITE BLOOD COUNT 2.8 10^3/uL (4.3-11.0)
[2020-11-15] MEDS: ONDANSETRON 4 MG/2 ML (SDV) Z0FRAN IV PRN ×2 (10:15→18:39)
[2020-11-15] MEDS ORDERED: LACT1CAP39 PO (11:22)
[2020-11-15] MEDS ORDERED: LIDO700A45 TD (11:22)
[2020-11-15] MEDS ORDERED: HYDR-3820 PO (11:22)
[2020-11-15] MEDS ORDERED: CNC1KV IM (11:22)
[2020-11-15] MEDS ORDERED: PEDI18TA2 PO (11:22)
[2020-11-15] MEDS ORDERED: FURO20TA4 PO (11:22)
[2020-11-15] MEDS ORDERED: MULT-1021 PO (11:22)
[2020-11-15] MEDS ORDERED: MELA10TA2 PO (11:22)
[2020-11-15] MEDS ORDERED: ISOS30TA3 PO (11:22)
[2020-11-15] MEDS ORDERED: MAGN250T13 PO (11:22)
[2020-11-15] MEDS ORDERED: PANT40TA52 PO (11:22)
[2020-11-15] MEDS ORDERED: ASPI-1238 PO (11:22)
[2020-11-15] MEDS ORDERED: CARV12.53 PO (11:22)
[2020-11-15] MEDS ORDERED: FLUT16SP22 NSEACH (11:22)
[2020-11-15] MEDS ORDERED: METO2.5T PO (11:22)
[2020-11-15] MEDS ORDERED: POTA20TA15 PO (11:22)
[2020-11-15] MEDS ORDERED: TAMO20TA2 PO (11:22)
[2020-11-15] MEDS ORDERED: TOPI50TA13 PO (11:22)
[2020-11-15] MEDS ORDERED: NITR0.4T39 SL (11:23)
[2020-11-15] MEDS ORDERED: LEVO100T PO (11:29)
--- NOTE | 2020-11-15 12:15 | NUR ---
SPOKE WITH THE PT, ALSO CALLED HER DAUGHTER VENUS, AND WENT THRU THE EXT MED HISTORY TO COMPLETE THE MED REC PT WAS UNSURE OF HER MEDICATIONS AND TOLD HER HER DAUGHTER VENUS HAS A MEDICATION LIST- I SPOKE WITH VENUS WHO NAMED ALL THE PTS MEDS WELL WHEN/HOW SHE TAKES EACH FUROSEMIDE: DIRECTIONS SHOW 1 TAB BID HOWEVER PT ONLY TAKES 1 TAB DAILY METOLAZONE 2.5MG- DIRECTIONS ARE 1 TAB DAILY BUT PT ONLY TAKES PRN LEVOTHYROXINE IS SHOWN ON THE EXT MED HISTORY 100MCG- TAB DAILY AND 75MCG 1 TAB DAILY (THE 75MCG IS THE MOST RECENT FILL) HOWEVER PT QUIT TAKING 75MCG AND HAS NOW SWITCHED BACK TO TAKING 50MCG ( OF A 100MCG TAB) OTC MEDS: ASPIRIN 81MG FLINTSTONES W/ IRON MAGNESIUM 250MG MELATONIN 10MG CULTURELLE WOMEN'S MTV W/ CALCIUM ZINC
[2020-11-15] MEDS ORDERED: ZINC50TA11 PO (12:26)
--- NOTE | 2020-11-15 13:22 | NUR ---
THE PATIENT'S DAUGHTER HAS CALLED THIS RN 2 TIMES TODAY TO CHECK ON HER MOTHER. SHE WANTS TO KNOW WHAT PLANS THE DOCTOR HAS FOR TREATING HER MOTHER. SHE WOULD LIKE THE DOCTOR TO CALL HER. VENUS JACKSON [phone].
--- NOTE | 2020-11-15 16:00 | Progress Note ---
Subjective Date Seen by a Provider: Nov 15, 2020 Time Seen by a Provider: 15:00 Subjective/Events-last exam continues to have intermittent crampy abd pain. only a small amount of flatus yesterday. no nausea/vomiting, no abd distention. Objective Exam Vital Signs Date Time Temp Pulse Resp B/P (MAP) Pulse Ox O2 Delivery O2 Flow Rate FiO2 11/15/20 15:31 37.3 73 18 167/70 (102) 97 Room Air 11/15/20 12:00 36.4 68 14 175/68 (103) 97 Room Air 11/15/20 11:26 100 Room Air 11/15/20 08:00 Room Air 11/15/20 08:00 37.2 80 16 154/67 (96) 97 Room Air 11/15/20 06:44 98 Room Air 11/15/20 03:50 37.3 69 16 167/70 (102) 97 Room Air 11/15/20 02:54 92 Room Air 11/15/20 00:00 37.1 72 17 160/61 (94) 93 Room Air 11/14/20 21:43 95 Room Air 11/14/20 20:00 Room Air 11/14/20 19:09 36.8 63 16 140/60 (86) 97 Room Air 11/14/20 18:55 95 Room Air 11/14/20 18:43 96 Room Air 11/14/20 17:01 37.1 70 17 155/69 96 Room Air 11/14/20 16:59 96 Room Air 11/14/20 16:16 77 18 133/77 (120) 98 I & O 11/15/20 07:00 Intake Total 400 ml Output Total 550 ml Balance -150 ml Capillary Refill : Less Than 3 SecondsLess Than 3 Seconds General Appearance: No Apparent Distress HEENT: PERRL/EOMI Neck: Full Range of Motion Respiratory: Chest Non Tender, Lungs Clear Cardiovascular: Regular Rate, Rhythm Gastrointestinal: soft, tenderness Extremity: Normal Capillary Refill Neurologic/Psychiatric: Alert, Oriented x3 Skin: Normal Color Lymphatic: No Adenopathy Results Lab Laboratory Tests 11/15/20 06:55: Sodium Level 130L, Potassium Level 3.3L, Chloride Level 94L, Carbon Dioxide Level 27, Anion Gap 9, Blood Urea Nitrogen 15, Creatinine 0.98, Estimat Glomeru lar Filtration Rate 54, BUN/Creatinine Ratio 15, Glucose Level 76, Calcium Level 8.0L, Corrected Calcium 8.6, Total Bilirubin 0.2, Aspartate Amino Transf (AST/SGOT) 46H, Alanine Aminotransferase (ALT/SGPT) 25, Alkaline Phosphatase 36L , Total Protein 5.8L, Albumin 3.3 11/15/20 08:48: White Blood Count 2.8L, Red Blood Count 3.26L, Hemoglobin 10.5L, Hematocrit 31L, Mean Corpuscular Volume 95, Mean Corpuscular Hemoglobin 32, Mean Corpuscular Hemoglobin Concent 34, Red Cell Distribution Width 11.7, Platelet Count 92L, Mean Platelet Volume 9.6, Immature Granulocyte % (Auto) 0, Neutrophils (%) (Auto) 68, Lymphocytes (%) (Auto) 18, Monocytes (%) (Auto) 13H, Eosinophils (%) (Auto) 0, Basophils (%) (Auto) 0, Neutrophils # (Auto) 1.9, Lymphocytes # (Auto) 0.5L, Monocytes # (Auto) 0.4, Eosinophils # (Auto) 0.0, Basophils # (Auto) 0.0, Immature Granulocyte # (Auto) 0.0 Assessment/Plan Assessment/Plan Assess & Plan/Chief Complaint PSBO. continue IV fluids and bowel rest. will proceed with a sbft tomorrow. Clinical Quality Measures DVT/VTE Risk/Contraindication: Risk Factor Score Per Nursin RFS Level Per Nursing on Admit: 2=Moderate KIRBY DUNAWAY MD Nov 15, 2020 16:00
[2020-11-15] MEDS ORDERED: oxyCODONE/APAP 7.5-325 MG (PERCOCET 7.5) TABLET PO PRN (16:15)
--- NOTE | 2020-11-15 17:06 | NUR ---
"RD ASSESSMENT PMHx: DM; hypercholesterolemia; PT INTERACTION: Pt was awake and pleasant during nutrition assessment. Pt states current appetite is poor, and has been this way for awhile. Not avg PO intake <25% meals, per chart review. Pt states following a regular diet at home, and has no issues with chewing/swallowing food. Pt states some recent issues with nausea and constipation, and that her last BM was 1/2. Note pt not currently on bowel regimen per chart review. Pt states unsure of recent wt changes. Note recent 4# wt gain x10mon, per chart review. Pt states current DM management is good. Note unable to determine recent HbA1c, per chart review. Est. kcal needs: [id number] kcal | 30-35 kcal/kg Est. Pro needs: 50-60 g Pro | 1.0-1.2 g Pro/kg PES STATEMENT: Inadequate oral intake (NI-2.1) related to loss of appetite, nausea, and constipation, as evidenced by pt interview, and avg PO intake <25% meals. INTERVENTION: Continue with current diet order of Clear Liquid diet. Would not recommend nutrition supplementation at this time as Ensure Clear is high in CHO. Offered diet education on DM management, but pt declined at this time. Will attempt to offer again prior to discharge. Encouraged pt to eat when able. Will continue to follow and reassess as pt needs, intake, and status change. Carlos JEREZ, MS RD LD [phone] cell"
[2020-11-15] MEDS ORDERED: ALPRAZolam 0.25 MG (XANAX) TAB PO PRN (17:15)
--- NOTE | 2020-11-15 18:26 | NUR ---
CALLED THE PATIENT'S DAUGHTER TO INQUIRE ABOUT ALLERGIC REACTION TO ATIVAN. SHE REPORTED CONFUSION AND INABILITY TO MAKE SENTENCES. SIDE EFFECTS REPORTED TO [facility]ACY
[2020-11-15] MEDS: ALPRAZolam 1 MG (XANAX) TAB PO PRN (20:00)
[2020-11-16] MEDS: LACTATED RINGERS 1,000 ML IV SCH ×2 (00:30→06:57)
[2020-11-16] MEDS: HYDROmorphone 2 MG/ML VIAL (DILAUDID) IV PRN ×4 (02:23→11:53)
[2020-11-16 03:18] VITALS: BP 153/69
[2020-11-16] MEDS: ALPRAZolam 1 MG (XANAX) TAB PO PRN (05:02)
[2020-11-16 08:00] VITALS: BP 137/58
[2020-11-16] MEDS ORDERED: DIATRIZOATE MEGLUM/SODIUM 37% 120 ML (GASTROGRAFIN) PO ONE (10:30)
[2020-11-16] MEDS: ONDANSETRON 4 MG/2 ML (SDV) Z0FRAN IV PRN (11:53)
[2020-11-16 12:05] VITALS: BP 121/63
--- NOTE | 2020-11-16 12:34 | Diagnostic Imaging Report ---
INDICATION: Possible small bowel obstruction. TECHNIQUE: The patient was administered 120 cc of Gastrografin contrast and 120 cc of water and serial radiographs of the abdomen were obtained. FINDINGS: Post surgical changes of the abdomen are noted. There are surgical clips in the right upper quadrant. The bowel gas pattern is unremarkable. The post ingestion films demonstrate contrast within the stomach with prompt passage of contrast into the small bowel. There appears to be normal progression of contrast through the small bowel loops. No small bowel distention is seen. The mucosal fold pattern is unremarkable. There appear to be post surgical changes from colectomy. Contrast is seen within the rectum at 30 minutes. IMPRESSION: No evidence of small bowel obstruction. Dictated by: Dictated on workstation # [id number]
--- NOTE | 2020-11-16 13:20 | Progress Note ---
Subjective Date Seen by a Provider: Nov 16, 2020 Time Seen by a Provider: 12:00 Subjective/Events-last exam doing better today. multiple loose stools after start of SBFT. transit within 30min. less abd crampy pain. Objective Exam Vital Signs Date Time Temp Pulse Resp B/P (MAP) Pulse Ox O2 Delivery O2 Flow Rate FiO2 11/16/20 12:05 36.2 70 18 121/63 (82) 95 Room Air 11/16/20 10:17 96 Room Air 11/16/20 08:00 Room Air 11/16/20 08:00 36.6 65 16 137/58 (84) 97 Room Air 11/16/20 07:03 91 Room Air 11/16/20 03:18 37.0 61 18 153/69 (97) 93 Room Air 11/16/20 03:04 93 Room Air 11/15/20 23:23 36.6 59 16 111/59 (76) 93 Room Air 11/15/20 23:21 91 Room Air 11/15/20 20:00 Room Air 11/15/20 19:34 96 Room Air 11/15/20 19:32 37.2 70 18 161/67 (98) 93 Room Air 11/15/20 15:31 37.3 73 18 167/70 (102) 97 Room Air 11/15/20 15:00 97 Room Air I & O 11/16/20 07:00 Intake Total 1730 ml Output Total 1350 ml Balance 380 ml Capillary Refill : Less Than 3 SecondsLess Than 3 Seconds General Appearance: No Apparent Distress HEENT: PERRL/EOMI Neck: Full Range of Motion Respiratory: Chest Non Tender, Lungs Clear Cardiovascular: Regular Rate, Rhythm Gastrointestinal: normal bowel sounds, soft, tenderness Extremity: Normal Capillary Refill Neurologic/Psychiatric: Alert, Oriented x3 Skin: Normal Color Lymphatic: No Adenopathy Assessment/Plan Assessment/Plan Assess & Plan/Chief Complaint PSBO. SBFT transit within 30 min. clinically feels better. will advance diet as tolerated. Clinical Quality Measures DVT/VTE Risk/Contraindication: Risk Factor Score Per Nursin RFS Level Per Nursing on Admit: 2=Moderate KIRBY DUNAWAY MD Nov 16, 2020 13:19
[2020-11-16] MEDS ORDERED: HYDR-3820 PO (16:31)
--- NOTE | 2020-11-16 16:51 | NUR ---
Pt sitting up and eating stating she feels much better and hoping for discharge home. Daughter would transport her home if medically ready for discharge.No other needs identified
[2020-11-16 17:30] VITALS: BP 121/63
== END 2020-11-16 17:30 | disposition home or self-care (01) | DRG 390 ==
LOC: EDUNIT# 12:37 → ER 12:38 → 4TH 14:23
PROVIDERS: ADMIT Surgery; ATTEND Surgery
DX: K56.51 Intestinal adhesions [bands], with partial obstruction (principal); G43.909 Migraine, unspecified, not intractable, without status migrainosus; E11.9 Type 2 diabetes mellitus without complications; E78.00 Pure hypercholesterolemia, unspecified; Z90.49 Acquired absence of other specified parts of digestive tract; Z95.5 Presence of coronary angioplasty implant and graft; I25.2 Old myocardial infarction
CPT/HCPCS: 36415; 74176; 74250; 80053; 85025; 94760

== ENCOUNTER → 2020-12-02 | Outpatient (CLI) | payer MEDICARE ==
[~2020-12-02] MED LIST changes: +ASPI-1238 PO; +CARV12.53 PO; +CNC1KV IM; +FLUT16SP22 NSEACH; +FURO20TA4 PO; +HYDR-3820 PO; +ISOS30TA82 PO; +LACT1CAP39 PO; +LEVO100T PO; +LIDO700A45 TD; +MAGN250T13 PO; +MELA10TA2 PO; +METO2.5T PO; +MULT-1021 PO; +NITR0.4T39 SL; +PANT40TA52 PO; +PEDI18TA2 PO; +POTA20TA15 PO; +TAMO20TA2 PO; +TOPI50TA13 PO; +ZINC50TA11 PO
== END ==
LOC: ONC 13:38
PROVIDERS: ATTEND Internal Medicine Hematology & Oncology
DX: D05.12 Intraductal carcinoma in situ of left breast (principal); E03.9 Hypothyroidism, unspecified
CPT/HCPCS: 84443

== ENCOUNTER → 2021-08-26 | Outpatient (CLI) | payer MEDICARE ==
--- NOTE | 2021-08-26 14:54 | Diagnostic Imaging Report ---
INDICATION: Back pain EXAM: Thoracic spine FINDINGS: AP and lateral views of the thoracic spine show spondylosis with small osteophytes forming throughout the midportion of the thoracic spine. There are no compression fractures. Alignment is normal. Disc spaces are minimally narrowed. IMPRESSION: Spondylosis of the thoracic spine. No acute abnormality seen. Dictated by: Dictated on workstation # [id number]
--- NOTE | 2021-08-26 14:56 | Diagnostic Imaging Report ---
INDICATION: Neck pain EXAM: Cervical spine AP and lateral views of the cervical spine were obtained FINDINGS: There is disc space narrowing at C5-C6. The other intervertebral disc spaces are normal. Alignment is normal. There is no fracture seen. IMPRESSION: Degenerative disc changes at C5-C6. Dictated by: Dictated on workstation # [id number]
--- NOTE | 2021-08-26 15:11 | Diagnostic Imaging Report ---
INDICATION: Back pain EXAM: Lumbar spine AP and lateral views of lumbar spine shows normal vertebral body height and alignment. There is disc space narrowing at L4-L5 and L5-S1. IMPRESSION: Degenerative disc changes in the lower lumbar spine. No acute abnormality is seen. Dictated by: Dictated on workstation # [id number]
== END ==
LOC: RAD 13:56
PROVIDERS: ATTEND Family Medicine
DX: M47.814 Spondylosis without myelopathy or radiculopathy, thoracic region (principal); M47.816 Spondylosis without myelopathy or radiculopathy, lumbar region; M51.36 Other intervertebral disc degeneration, lumbar region
CPT/HCPCS: 72040; 72072; 72100

== ENCOUNTER 2021-11-09 12:53 | Outpatient (RCR) | payer MEDICARE ==
[2021-10-28 13:43] VITALS: BP 117/53
[2021-10-31] MEDS: IRON SUCROSE 200 MG/10 ML (VENOFER) VIAL IV SCH (13:17)
[2021-10-31 13:22] VITALS: BP 137/54
[2021-11-02] MEDS: IRON SUCROSE 200 MG/10 ML (VENOFER) VIAL IV SCH (13:16)
[2021-11-02 13:18] VITALS: BP 129/61
[2021-11-07 13:00] VITALS: BP 133/74
[2021-11-07] MEDS: IRON SUCROSE 200 MG/10 ML (VENOFER) VIAL IV SCH (13:18)
[~2021-11-09] VITALS: Ht 162.5 cm; Wt 40.9 kg
[2021-11-09 12:53] VITALS: BP 139/60
[~2021-11-09 12:53] MED LIST changes: +IRON SUCROSE 200 MG/10 ML (VENOFER) VIAL IV ONE; +IRON SUCROSE 200 MG/10 ML (VENOFER) VIAL IV SCH; +POTA-179 PO; -POTA20TA15 PO
[2021-11-09] MEDS ORDERED: IRON SUCROSE 200 MG/10 ML (VENOFER) VIAL IV SCH (13:15)
== END 2021-11-09 13:45 | disposition home or self-care (01) ==
LOC: SDC 12:53
PROVIDERS: ATTEND Internal Medicine Nephrology
DX: Z01.89 Encounter for other specified special examinations (principal)
CPT/HCPCS: 96365

== ENCOUNTER 2022-03-21 10:15 | Outpatient (RCR) | payer MEDICARE ==
[~2022-03-21 10:15] MED LIST changes: -IRON SUCROSE 200 MG/10 ML (VENOFER) VIAL IV ONE; -IRON SUCROSE 200 MG/10 ML (VENOFER) VIAL IV SCH
== END 2022-04-11 | disposition home or self-care (01) ==
LOC: ONC 10:15
PROVIDERS: ATTEND Internal Medicine Hematology & Oncology
DX: I25.10 Atherosclerotic heart disease of native coronary artery without angina pectoris (principal); E11.22 Type 2 diabetes mellitus with diabetic chronic kidney disease; I12.9 Hypertensive chronic kidney disease with stage 1 through stage 4 chronic kidney disease, or unspecified chronic kidney disease; N18.9 Chronic kidney disease, unspecified; Z85.3 Personal history of malignant neoplasm of breast; Z90.12 Acquired absence of left breast and nipple
CPT/HCPCS: 99214

== ENCOUNTER 2022-05-05 21:17 | Emergency (ER) | payer MEDICARE ==
[~2022-05-05] VITALS: Ht 162.6 cm; Wt 54.4 kg
[2022-05-05 21:25] VITALS: BP 130/59
--- NOTE | 2022-05-05 21:34 | ED Neurological Problem ---
General Stated Complaint: EPISODE OF WEAKNESS R SIDE/R EYE VISION LOSS Source: patient, family Exam Limitations: no limitations History of Present Illness Date Seen by Provider: May 05, 2022 Time Seen by Provider: 09:28 Initial Comments Kierra is an 86-year-old female who presents to the emergency department with her daughter and granddaughter chief complaint severe right occipital headache, sudden acute vision loss onset about 830 this evening when she woke up from a nap while sitting in her recliner chair. 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 She states that she was afraid the aneurysm had ruptured. She tells me she had taken a hydrocodone tablet prior to her nap. She states after she woke up the pain slowly started to subside and her vision returned. She denies any ongoing headache currently. She does have a little chest discomfort and feels slightly short of breath. She has generalized weakness but also has a history of postpolio syndrome. She is got a history of chronic kidney disease stage III, coronary artery disease, thyroid disease. Her primary care doctor is Dr. David Roach, colors custodian Dieudonne Tristan at [facility] as well as Melissa Pyle for nephrology. No recent illnesses such as fevers, chills, cough or congestion. She has had chronic worsening swelling in her bilateral lower extremities over the last 2 weeks. Known history of cardiomyopathy as well. No burning with urination. No diarrhea. No black or bloody stools. All other review of systems reviewed and negative except as stated. Timing/Duration: 1 hour Severity: moderate Associated Symptoms: vision changes (Right eye "vision lost"), other Allergies and Home Medications Allergies Coded Allergies: carbamazepine (Verified Allergy, Unknown, 11/14/20) cyproheptadine (Verified Allergy, Unknown, 11/14/20) esomeprazole (Verified Allergy, Unknown, 11/14/20) indomethacin (Verified Allergy, Unknown, 11/14/20) lorazepam (Verified Allergy, Unknown, 11/15/20) CONFUSION, INABLITY TO MAKE SENTENCES simvastatin (Verified Allergy, Unknown, 11/14/20) Uncoded Allergies: PENICILLIN (Allergy, Unknown, 01/01/19) Patient Home Medication List Home Medication List Reviewed: Yes Aspirin (Aspirin EC) 81 Mg Tablet., 81 MG PO DAILY, (Reported) Entered as Reported by: NICOLE ARRIAGA on 11/15/20 1744 Carvedilol (Carvedilol) 12.5 Mg Tablet, 12.5 MG PO BID, (Reported) Entered as Reported by: NICOLE ARRIAGA on 11/15/201121 Cyanocobalamin (Cyanocobalamin Injection) 1,000 Mcg/Ml Inj, 1 ML IM MONTHLY, (Reported) Entered as Reported by: NICOLE ARRIAGA on 11/15/201121 Fluticasone Propionate (Fluticasone Propionate) 16 Gm Dieterich.susp, 1 SPRAY NSEACH BID, (Reported) Entered as Reported by: NICOLE ARRIAGA on 11/15/201121 Furosemide (Furosemide) 20 Mg Tablet, 20 MG PO DAILY, (Reported) Entered as Reported by: NICOLE ARRIAGA on 11/15/201121 Hydrocodone/Acetaminophen (Hydrocodone-Acetamin 10-325 mg) 1 Each Tablet, 1 EA PO Q6H PRN for PAIN-MODERATE (5-7), (Reported) Entered as Reported by: NICOLE ARRIAGA on 11/15/201121 Hydrocodone/Acetaminophen (Hydrocodone-Acetamin 10-325 mg) 1 Each Tablet, 1 EACH PO Q6H PRN for PAIN-MODERATE (5-7) Prescribed by: HUGO MELTON on 11/16/20 1631 Isosorbide Mononitrate (Isosorbide Mononitrate ER) 30 Mg Tab.er.24h, 30 MG PO DAILY, (Reported) Entered as Reported by: NICOLE ARRIAGA on 11/15/20 112 Lactobacillus Rhamnosus GG (Culturelle) 1 Each Capsule, 1 EACH PO DAILY, (Reported) Entered as Reported by: NICOLE ARRIAGA on 11/15/20 112 Levothyroxine Sodium (Synthroid) 100 Mcg Tablet, 50 MCG PO DAILY, (Reported) Entered as Reported by: NICOLE ARRIAGA on 11/15/20 112 Lidocaine (Lidocaine 5% Patch) 1 Each Adh..patch, 1 PATCH TD DAILY PRN for PAIN- BREAKTHROUGH, (Reported) Entered as Reported by: NICOLE ARRIAGA on 11/15/20 112 Magnesium Oxide (Magnesium) 250 Mg Tablet, 250 MG PO DAILY, (Reported) Entered as Reported by: NICOLE ARRIAGA on 11/15/201121 Melatonin (Melatonin) 10 Mg Tablet, 10 MG PO HS, (Reported) Entered as Reported by: NICOLE ARRIAGA on 11/15/20 112 Metolazone (Metolazone) 2.5 Mg Tablet, 2.5 MG PO DAILY PRN for FLUID RETENTION, (Reported) Entered as Reported by: NICOLE ARRIAGA on 11/15/20 112 Multivits-Min/Iron/FA/Lutein (Centrum Silver Women Tablet) 1 Each Tablet, 1 EACH PO DAILY, (Reported) Entered as Reported by: NICOLE ARRIAGA on 11/15/20 112 Nitroglycerin (Nitroglycerin) 0.4 Mg Tab.subl, 0.4 MG SL UD PRN for CHEST PAIN, (Reported) Entered as Reported by: NICOLE RARIAGA on 11/15/20 112 Pantoprazole Sodium (Pantoprazole Sodium) 40 Mg Tablet.dr, 40 MG PO BID, (Reported) Entered as Reported by: NICOLE ARRIAGA on 11/15/20 112 Pedi Mv No.79/Ferrous Fumarate (Flintstones with Iron Tab Chew) 18 Mg Tab.chew, 18 MG PO DAILY, (Reported) Entered as Reported by: NICOLE ARRIAGA on 11/15/20 112 Potassium Chloride (Potassium Chloride) 20 Meq Tab.er.prt, 40 MEQ PO TIDWM, (Reported) Entered as Reported by: NICOLE ARRIAGA on 11/15/20 112 Tamoxifen Citrate (Tamoxifen Citrate) 20 Mg Tablet, 20 MG PO DAILY, (Reported) Entered as Reported by: NICOLE ARRIAGA on 11/15/20 112 Topiramate (Topiramate) 50 Mg Tablet, 150 MG PO HS, (Reported) Entered as Reported by: NICOLE ARRIAGA on 11/15/20 112 Zinc Gluconate (Zinc) 50 Mg Tablet, 50 MG PO DAILY, (Reported) Entered as Reported by: NICOLE ARRIAGA on 11/15/20 1226 Review of Systems Review of Systems Constitutional: see HPI Eyes: No Symptoms Reported, See HPI, 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) Ears, Nose, Mouth, Throat: no symptoms reported Respiratory: no symptoms reported Cardiovascular: chest pain ("Pressure") Gastrointestinal: no symptoms reported Genitourinary: no symptoms reported Musculoskeletal: other (Bilateral lower leg swelling) Skin: no symptoms reported Psychiatric/Neurological: Headache All Other Systems Reviewed Negative Unless Noted: Yes Past Sxkdzme-Scnyyx-Tlydtw Hx Seasonal Allergies Seasonal Allergies: No Past Medical History Surgeries: Yes Abdominal, Appendectomy, Bladder Surgery, Bowel Surgery, Breast, Cardiac, Coronary Stent, Eye Surgery, Gallbladder, Hysterectomy, Orthopedic Respiratory: No Cardiac: Yes Heart Attack Neurological: Yes Headaches /Migraines Genitourinary: No Gastrointestinal: No Musculoskeletal: No Endocrine: Yes Diabetes, Non-Insulin dep HEENT: Yes Cataract Cancer: Yes Breast Did You Recieve Any Treatments: Yes What Type of Treatment Did You: Surgical Intervention Psychosocial: No Integumentary: No Blood Disorders: Yes Adverse Reaction/Blood Tranf: No Family Medical History No Pertinent Family Hx Physical Exam Vital Signs Capillary Refill : Height, Weight, BMI Height: 5'4.00" Weight: 128lbs. oz. 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 as tested, no motor/sensory deficits, alert, normal mood/affect, oriented x 3 Crainal Nerves: normal hearing, normal speech, PERRL Motor/Sensory: no motor deficit, no sensory deficit Skin: normal color, warm/dry Progress/Results/Core Measures Results/Orders Lab Results Laboratory Tests Test 05/05/22 21:32 Range/Units White Blood Count 5.8 4.3-11.0 10^3/uL Red Blood Count 3.37 L 3.80-5.11 10^6/uL Hemoglobin 10.9 L 11.5-16.0 g/dL Hematocrit 34 L 35-52 % Mean Corpuscular Volume 100 H 80-99 fL Mean Corpuscular Hemoglobin 32 25-34 pg Mean Corpuscular Hemoglobin Concent 32 32-36 g/dL Red Cell Distribution Width 13.2 10.0-14.5 % Platelet Count 168 130-400 10^3/uL Mean Platelet Volume 9.4 9.0-12.2 fL Immature Granulocyte % (Auto) 0 % Neutrophils (%) (Auto) 46 42-75 % Lymphocytes (%) (Auto) 40 12-44 % Monocytes (%) (Auto) 10 0-12 % Eosinophils (%) (Auto) 4 0-10 % Basophils (%) (Auto) 1 0-10 % Neutrophils # (Auto) 2.7 1.8-7.8 10^3/uL Lymphocytes # (Auto) 2.3 1.0-4.0 10^3/uL Monocytes # (Auto) 0.6 0.0-1.0 10^3/uL Eosinophils # (Auto) 0.2 0.0-0.3 10^3/uL Basophils # (Auto) 0.1 0.0-0.1 10^3/uL Immature Granulocyte # (Auto) 0.0 0.0-0.1 10^3/uL Prothrombin Time 14.3 12.2-14.7 SEC INR Comment 1.1 0.8-1.4 Activated Partial Thromboplast Time 31 24-35 SEC Sodium Level 132 L 135-145 MMOL/L Potassium Level 3.6 3.6-5.0 MMOL/L Chloride Level 100 98-107 MMOL/L Carbon Dioxide Level 23 21-32 MMOL/L Anion Gap 9 5-14 MMOL/L Blood Urea Nitrogen 37 H 7-18 MG/DL Creatinine 1.23 0.60-1.30 MG/DL Estimat Glomerular Filtration Rate 43 BUN/Creatinine Ratio 30 Glucose Level 79 70-105 MG/DL Calcium Level 8.5 8.5-10.1 MG/DL Corrected Calcium 8.7 8.5-10.1 MG/DL Total Bilirubin 0.2 0.1-1.0 MG/DL Aspartate Amino Transf (AST/SGOT) 18 5-34 U/L Alanine Aminotransferase (ALT/SGPT) 13 0-55 U/L Alkaline Phosphatase 43 40-136 U/L Troponin I < 0.028 <0.028 NG/ML Total Protein 7.1 6.4-8.2 GM/DL Albumin 3.8 3.2-4.5 GM/DL My Orders Orders - PORTILLO PARNELL MD Protime With Inr (05/05/22 21:32) Partial Thromboplastin Time (05/05/22 21:32) Ct Head Wo-R/O Stroke (05/05/22 21:32) Ekg Tracing (05/05/22 21:34) Progress Progress Note : Time: 22:57 Progress Note Had a discussion with the patient and family members were at the bedside about all of her findings. Everything looks very reassuring, negative labs, negative EKG, negative CT brain noncontrast. Patient feels back to baseline. She is without complaints. I suspect potentially due to her migraine history that she states she has had "since I was 10 years old" she may have had some variation of a possible complex migraine with the vision loss. I did discuss with the patient and the family that this could have been a TIA. She is completely asymptomatic, the symptom onset and duration were very brief. She was never "confused" on examination. Her NIH stroke scale was 0 at presentation. Her vital signs have been stable. She has been reassured as have the family members. They are comfortable with discharge. The patient wants to be discharged home. I did reiterate that if she has any recurrence of symptoms whatsoever she should come back immediately to the emergency room for reevaluation. She cannot recall when the last time she had an echo or carotid ultrasounds were and I suggested that she follow-up with Dr. Roach to possibly have these things done in the next week. She verbalized understanding. All questions are sought and answered. Patient is stable for discharge. Initial ECG Impression Date: May 05, 2022 Initial ECG Impression Time: 21:37 Initial ECG Rate: 61 Initial ECG Rhythm: Normal Sinus Initial ECG Intervals: Normal Initial ECG Impression: Normal Diagnostic Imaging Diagonstic Imaging: CT Comments [facility], [place] NAME: KIERRA CANTU [facility] REC#: [id number] PT STATUS: REG ER : 1935 PHYSICIAN: PORTILLO PARNELL MD ADMIT DATE: 05/05/22/ER Signed Date of Exam:05/05/22 CT HEAD WO-R/O STROKE INDICATION: Acute visual loss. TECHNIQUE: Multiple contiguous axial images were obtained through the brain without the use of intravenous contrast. Auto Exposure Controls were utilized during the CT exam to meet ALARA standards for radiation dose reduction. COMPARISON: 01/18/2020. FINDINGS: There are diffuse atrophic changes. There is no extra-axial fluid collection. No intracranial hemorrhage. No intracranial mass or mass effect. No midline shift. The ventricles are normal in size and position. There are no acute parenchymal abnormalities in the brain. Calvarial windows are unremarkable. There is chronic opacification of the right sphenoid sinus. Patient appears to have previous left-sided craniotomy. IMPRESSION: No acute intracranial abnormality. Dictated by: Dictated on workstation # [id number] Dict: 05/05/222152 Trans: 05/05/222212 [facility] [id number] Interpreted by: WERNER EDWARDS MD Electronically signed by: WERNER EDWARDS MD 05/05/222212 Diagonstic Imaging: Xray Plain Films/CT/US/NM/MRI: chest Comments [facility], [place] NAME: KIERRA CANTU [facility] REC#: [id number] PT STATUS: REG ER : 1935 PHYSICIAN: JULISSA GERMAIN ADMIT DATE: 05/05/22/ER Draft Date of Exam:05/05/22 CHEST 1 VIEW, AP/PA ONLY INDICATION: Chest pain. EXAMINATION: Frontal chest was obtained at 9:42 p.m. COMPARISON: 07/13/2020. FINDINGS: Heart is normal in size. Compared to the previous study, there is some new patchy infiltrate and/or atelectasis in the right upper lobe. Left lung is clear. There is hyperinflation compatible with COPD. There is no pleural fluid or pneumothorax. IMPRESSION: Hyperinflation compatible with COPD. There is some new infiltrate or atelectasis in the right upper lobe compared to the prior study. Follow-up is recommended. Dictated on workstation # [id number] Dict: 05/05/222211 Trans: 05/05/222221 [facility] [id number] Interpreted by: WERNER EDWARDS MD Electronically signed by: Departure Impression Primary Impression: Headache Qualified Codes: R51.9 - Headache, unspecified Additional Impression: Vision disturbance Disposition: 01 HOME, SELF-CARE Condition: Stable Departure-Patient Inst. Decision time for Depature: 22:59 Referrals: DAVID ROACH MD (PCP/Family) Primary Care Physician Patient Instructions: Headache, Adult (DC) Add. Discharge Instructions: Continue your daily medications as previously prescribed. If you have any return of symptoms similar to this evening, new concerning symptoms please come back to the emergency room for reevaluation. Please follow-up with Dr. Roach to discuss further evaluation for stroke risk including carotid ultrasounds and heart ultrasound Copy Copies To 1: DAVID ROACH MD, KATHRYN M MD May 05, 2022 21:34
[2022-05-05 21:39] LABS: BASOPHILS # (AUTO) 0.1 10^3/uL (0.0-0.1); BASOPHILS % (AUTO) 1 % (0-10); EOSINOPHILS # (AUTO) 0.2 10^3/uL (0.0-0.3); EOSINOPHILS % (AUTO) 4 % (0-10); HEMATOCRIT 34 % (35-52); HEMOGLOBIN 10.9 g/dL (11.5-16.0); LYMPHOCYTES # (AUTO) 2.3 10^3/uL (1.0-4.0); LYMPHOCYTES % (AUTO) 40 % (12-44); MEAN CORPUSCULAR HEMOGLOBIN 32 pg (25-34); MEAN CORPUSCULAR HGB CONC 32 g/dL (32-36); MEAN CORPUSCULAR VOLUME 100 fL (80-99); MEAN PLATELET VOLUME 9.4 fL (9.0-12.2); MONOCYTES # (AUTO) 0.6 10^3/uL (0.0-1.0); MONOCYTES % (AUTO) 10 % (0-12); NEUTROPHILS # (AUTO) 2.7 10^3/uL (1.8-7.8); NEUTROPHILS % (AUTO) 46 % (42-75); PLATELET COUNT 168 10^3/uL (130-400); WHITE BLOOD COUNT 5.8 10^3/uL (4.3-11.0)
[2022-05-05 21:47] LABS: ALBUMIN 3.8 GM/DL (3.2-4.5)
[2022-05-05 21:48] LABS: CHLORIDE 100 MMOL/L (98-107); POTASSIUM 3.6 MMOL/L (3.6-5.0); SODIUM 132 MMOL/L (135-145)
[2022-05-05 21:49] LABS: CALCIUM 8.5 MG/DL (8.5-10.1)
[2022-05-05 21:50] LABS: GLUCOSE 79 MG/DL (70-105); INR 1.1 (0.8-1.4); PROTHROMBIN TIME PATIENT 14.3 SEC (12.2-14.7); TOTAL PROTEIN 7.1 GM/DL (6.4-8.2)
[2022-05-05 21:51] LABS: CARBON DIOXIDE 23 MMOL/L (21-32)
[2022-05-05 21:52] LABS: BILIRUBIN,TOTAL 0.2 MG/DL (0.1-1.0)
[2022-05-05 21:53] LABS: ALKALINE PHOSPHATASE 43 U/L (40-136); CREATININE SERUM 1.23 MG/DL (0.60-1.30); GFR ESTIMATED 43
[2022-05-05 21:54] LABS: BUN/CREATININE RATIO 30
[2022-05-05 21:56] LABS: ALANINE AMINOTRANSFERASE 13 U/L (0-55)
--- NOTE | 2022-05-05 21:59 | Diagnostic Imaging Report ---
INDICATION: Acute visual loss. TECHNIQUE: Multiple contiguous axial images were obtained through the brain without the use of intravenous contrast. Auto Exposure Controls were utilized during the CT exam to meet ALARA standards for radiation dose reduction. COMPARISON: 01/18/2020. FINDINGS: There are diffuse atrophic changes. There is no extra-axial fluid collection. No intracranial hemorrhage. No intracranial mass or mass effect. No midline shift. The ventricles are normal in size and position. There are no acute parenchymal abnormalities in the brain. Calvarial windows are unremarkable. There is chronic opacification of the right sphenoid sinus. Patient appears to have previous left-sided craniotomy. IMPRESSION: No acute intracranial abnormality. Dictated by: Dictated on workstation # [id number]
--- NOTE | 2022-05-05 22:23 | Diagnostic Imaging Report ---
INDICATION: Chest pain. EXAMINATION: Frontal chest was obtained at 9:42 p.m. COMPARISON: 07/13/2020. FINDINGS: Heart is normal in size. Compared to the previous study, there is some new patchy infiltrate and/or atelectasis in the right upper lobe. Left lung is clear. There is hyperinflation compatible with COPD. There is no pleural fluid or pneumothorax. IMPRESSION: Hyperinflation compatible with COPD. There is some new infiltrate or atelectasis in the right upper lobe compared to the prior study. Follow-up is recommended. Dictated by: Dictated on workstation # [id number]
== END 2022-05-05 23:08 | disposition home or self-care (01) ==
LOC: EDUNIT# 21:17 → ER 21:19
DX: H54.61 Unqualified visual loss, right eye, normal vision left eye (principal); R51.9 Headache, unspecified
CPT/HCPCS: 36415; 70450; 71045; 80053; 84484; 85025; 85610; 85730; 93005

== ENCOUNTER → 2022-05-18 | Outpatient (CLI) | payer MEDICARE ==
--- NOTE | 2022-05-18 15:31 | Diagnostic Imaging Report ---
PROCEDURE: US carotid duplex, bilateral. TECHNIQUE: Multiple real-time grayscale images were obtained over the carotid arteries in various projections, bilaterally. Additional spectral analysis and color Doppler duplex images were also obtained. INDICATION: Transient ischemic attack Parameters based on the consensus panel Fields-Scale and Doppler ultrasound criteria published September 2003, Radiology, Volume 229. DOPPLER (peak systolic velocity M/S Right Left CCA 0.74 0.68 ICA Proximal 0.64 0.74 ICA Mid 0.63 0.89 ICA Distal 0.64 0.85 RATIO 0.87 1.32 ECA 0.82 0.88 VERT 0.44 0.53 Minimal plaque is present. Waveforms are normal. Normal antegrade flow within both vertebral arteries. IMPRESSION: Less than 50% stenosis of the bilateral internal carotid arteries by velocity and ratio criteria. Dictated by: Dictated on workstation # [id number]
== END ==
LOC: RAD 10:25
PROVIDERS: ATTEND Family Medicine
DX: I65.23 Occlusion and stenosis of bilateral carotid arteries (principal); Z86.73 Personal history of transient ischemic attack (TIA), and cerebral infarction without residual deficits
CPT/HCPCS: 93880

== ENCOUNTER → 2022-07-10 | Outpatient (CLI) | payer MEDICARE ==
[2022-07-10 12:15] LABS: ALBUMIN 3.8 GM/DL (3.2-4.5)
[2022-07-10 12:16] LABS: POTASSIUM 3.9 MMOL/L (3.6-5.0)
[2022-07-10 12:21] LABS: CREATININE SERUM 1.04 MG/DL (0.60-1.30); PHOSPHORUS 3.7 MG/DL (2.3-4.7)
== END ==
LOC: LAB 11:23
PROVIDERS: ATTEND Internal Medicine Nephrology
DX: N18.32 Chronic kidney disease, stage 3b (principal)
CPT/HCPCS: 36415; 80069; 83935; 84300

== ENCOUNTER 2022-09-19 10:08 | Outpatient (RCR) | payer MEDICARE | END 2022-10-11 | disposition home or self-care (01) | LOC: ONC 10:08 | PROVIDERS: ATTEND Internal Medicine Hematology & Oncology | DX: D05.12 Intraductal carcinoma in situ of left breast (principal); I25.10 Atherosclerotic heart disease of native coronary artery without angina pectoris; E11.22 Type 2 diabetes mellitus with diabetic chronic kidney disease; I12.9 Hypertensive chronic kidney disease with stage 1 through stage 4 chronic kidney disease, or unspecified chronic kidney disease; N18.9 Chronic kidney disease, unspecified | CPT/HCPCS: 99213 ==

== ENCOUNTER → 2022-11-14 | Outpatient (CLI) | payer MEDICARE ==
--- NOTE | 2022-11-14 14:52 | Diagnostic Imaging Report ---
EXAMINATION: Chest 2 view HISTORY: CHEST WALL PAIN COMPARISON: 07/13/2020 FINDINGS: Heart size and pulmonary vasculature are normal. There are coarse interstitial opacities within the right perihilar mid lung, unchanged from prior exam. No focal consolidation, pleural effusion, or pneumothorax. Degenerative changes of the thoracic spine. Osseous structures are otherwise intact. IMPRESSION: 1. No acute radiographic abnormality in the chest. Dictated by: Dictated on workstation # [id number]
== END ==
LOC: RAD 13:23
PROVIDERS: ATTEND Family Medicine
DX: R07.89 Other chest pain (principal)
CPT/HCPCS: 71046

== ENCOUNTER → 2023-01-01 | Outpatient (CLI) | payer MEDICARE ==
[2023-01-01 16:14] LABS: ALBUMIN 3.8 GM/DL (3.2-4.5); CALCIUM 8.6 MG/DL (8.5-10.1); CREATININE SERUM 1.09 MG/DL (0.60-1.30); PHOSPHORUS 3.8 MG/DL (2.3-4.7); POTASSIUM 3.1 MMOL/L (3.6-5.0)
== END ==
LOC: LAB 15:30
PROVIDERS: ATTEND Internal Medicine Nephrology
DX: R60.0 Localized edema (principal); N18.32 Chronic kidney disease, stage 3b; E87.1 Hypo-osmolality and hyponatremia; E87.6 Hypokalemia
CPT/HCPCS: 36415; 80069; 83735

== ENCOUNTER 2023-03-20 10:02 | Outpatient (RCR) | payer MEDICARE ==
[~2023-03-20 10:02] MED LIST changes: +TOPI-241 PO; -TOPI50TA13 PO
[2023-03-30] MEDS ORDERED: TORS20TA3 PO (12:53)
[2023-03-30] MEDS ORDERED: PEDI18TA7 PO (12:53)
[2023-03-30] MEDS ORDERED: FENT1PAT9 TD (12:53)
[2023-03-30] MEDS ORDERED: ISOS120T9 PO (12:53)
[2023-03-30] MEDS ORDERED: CARV6.25 PO (12:53)
[2023-03-30] MEDS ORDERED: CETI-458 PO (12:53)
[2023-03-30] MEDS ORDERED: POTA-51 PO (13:01)
== END 2023-04-05 | disposition home or self-care (01) ==
LOC: ONC 10:02
PROVIDERS: ATTEND Internal Medicine Hematology & Oncology
DX: D05.12 Intraductal carcinoma in situ of left breast (principal); I25.10 Atherosclerotic heart disease of native coronary artery without angina pectoris; E11.22 Type 2 diabetes mellitus with diabetic chronic kidney disease; I12.9 Hypertensive chronic kidney disease with stage 1 through stage 4 chronic kidney disease, or unspecified chronic kidney disease; N18.9 Chronic kidney disease, unspecified

== ENCOUNTER 2023-03-29 12:21 | Inpatient (IN) | payer MEDICARE ==
[~2023-03-29] VITALS: Ht 163 cm; Wt 48.2 kg
--- NOTE | 2023-03-29 12:49 | ED Cardiac General ---
History of Present Illness General Chief Complaint: Chest Pain Stated Complaint: CHEST PAINS Nursing Triage Note: PT TO ED BY EMS WITH C/O CHEST AND LOW BACK PAIN. PT REPORTS BACK PAIN WOKE HER UP EARLY THIS MORNING, CP BEGAN AROUND 0400. PT BECAME SOB AND DIAPHORETIC WITH CP ONSET. PT TOOK NITRO AT 1100, WHICH HELPED THE CP. PT GIVEN 324 ASA AND NITRO WASTE EN ROUTE. RATES CP 4/10 AT THIS TIME, BACK PAIN 10/10. 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 Patient states that she had low back pain during the night, she developed chest pain at around 4 AM. She took a hydrocodone tablet at 8 a second hydrocodone at 10. In that timeframe she also took some Zofran. At 11 AM she took a sublingual nitro. One of the patient's neighbors called the daughter who then called EMS. Patient states the chest pain has basically resolved. She was given aspirin and placed on Nitropaste by the ambulance. She states her back hurts so badly she is nauseated and having dry heaves. No recent illnesses reported. Denies problems with bowel or bladder. She is not sure if this chest pain is similar to prior cardiac issues. She does see Dr. Dieudonne Maier (cardiology) at [facility]. 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 Associated Systoms: Chest Pain, Nausea/Vomiting ("dry heaves"), Other (back pain) Allergies and Home Medications Allergies Coded Allergies: carbamazepine (Verified Allergy, Unknown, 11/14/20) cyproheptadine (Verified Allergy, Unknown, 11/14/20) esomeprazole (Verified Allergy, Unknown, 11/14/20) indomethacin (Verified Allergy, Unknown, 11/14/20) lorazepam (Verified Allergy, Unknown, 11/15/20) CONFUSION, INABLITY TO MAKE SENTENCES simvastatin (Verified Allergy, Unknown, 11/14/20) Uncoded Allergies: PENICILLIN (Allergy, Unknown, 01/01/19) Patient Home Medication List Home Medication List Reviewed: Yes Aspirin (Aspirin EC) 81 Mg Tablet.dr, 81 MG PO DAILY, (Reported) Entered as Reported by: NICOLE ARRIAGA on 11/15/201121 Carvedilol (Carvedilol) 12.5 Mg Tablet, 12.5 MG PO BID, (Reported) Entered as Reported by: NICOLE ARRIAGA on 11/15/201121 Cyanocobalamin (Cyanocobalamin Injection) 1,000 Mcg/Ml Inj, 1 ML IM MONTHLY, (Reported) Entered as Reported by: NICOLE ARRIAGA on 11/15/201121 Fluticasone Propionate (Fluticasone Propionate) 16 Gm [place].susp, 1 SPRAY NSEACH BID, (Reported) Entered as Reported by: NICOLE ARRIAGA on 11/15/201121 Furosemide (Furosemide) 20 Mg Tablet, 20 MG PO DAILY, (Reported) Entered as Reported by: NICOLE ARRIAGA on 11/15/201121 Hydrocodone/Acetaminophen (Hydrocodone-Acetamin 10-325 mg) 1 Each Tablet, 1 EA PO Q6H PRN for PAIN-MODERATE (5-7), (Reported) Entered as Reported by: NICOLE ARRIAGA on 11/15/201121 Hydrocodone/Acetaminophen (Hydrocodone-Acetamin 10-325 mg) 1 Each Tablet, 1 EACH PO Q6H PRN for PAIN-MODERATE (5-7) Prescribed by: HUGO MELTON on 11/16/20 1631 Isosorbide Mononitrate (Isosorbide Mononitrate ER) 30 Mg Tab.er.24h, 30 MG PO DAILY, (Reported) Entered as Reported by: NICOLE ARRIAGA on 11/15/201121 Lactobacillus Rhamnosus GG (Culturelle) 1 Each Capsule, 1 EACH PO DAILY, (Reported) Entered as Reported by: NICOLE ARRIAGA on 11/15/20 112 Levothyroxine Sodium (Synthroid) 100 Mcg Tablet, 50 MCG PO DAILY, (Reported) Entered as Reported by: NICOLE ARRIAGA on 11/15/20 112 Lidocaine (Lidocaine 5% Patch) 1 Each Adh..patch, 1 PATCH TD DAILY PRN for PAIN- BREAKTHROUGH, (Reported) Entered as Reported by: NICOLE ARRIAGA on 11/15/201121 Magnesium Oxide (Magnesium) 250 Mg Tablet, 250 MG PO DAILY, (Reported) Entered as Reported by: NICOLE ARRIAGA on 11/15/20 112 Melatonin (Melatonin) 10 Mg Tablet, 10 MG PO HS, (Reported) Entered as Reported by: NICOLE ARRIAGA on 11/15/201121 Metolazone (Metolazone) 2.5 Mg Tablet, 2.5 MG PO DAILY PRN for FLUID RETENTION, (Reported) Entered as Reported by: NICOLE ARRIAGA on 11/15/201121 Multivits-Min/Iron/FA/Lutein (Centrum Silver Women Tablet) 1 Each Tablet, 1 EACH PO DAILY, (Reported) Entered as Reported by: NICOLE ARRIAGA on 11/15/201121 Nitroglycerin (Nitroglycerin) 0.4 Mg Tab.subl, 0.4 MG SL UD PRN for CHEST PAIN, (Reported) Entered as Reported by: NICOLE ARRIAGA on 11/15/201122 Pantoprazole Sodium (Pantoprazole Sodium) 40 Mg Tablet.dr, 40 MG PO BID, (Reported) Entered as Reported by: NICOLE ARRIAGA on 11/15/201121 Pedi Mv No.79/Ferrous Fumarate (Flintstones with Iron Tab Chew) 18 Mg Tab.chew, 18 MG PO DAILY, (Reported) Entered as Reported by: NICOLE ARRIAGA on 11/15/201121 Potassium Chloride (Potassium Chloride) 20 Meq Tab.er.prt, 40 MEQ PO TIDWM, (Reported) Entered as Reported by: NICOLE ARRIAGA on 11/15/20 112 Tamoxifen Citrate (Tamoxifen Citrate) 20 Mg Tablet, 20 MG PO DAILY, (Reported) Entered as Reported by: NICOLE ARRIAGA on 11/15/201121 Topiramate (Topiramate) 50 Mg Tablet, 150 MG PO HS, (Reported) Entered as Reported by: NICOLE ARRIAGA on 11/15/201121 Zinc Gluconate (Zinc) 50 Mg Tablet, 50 MG PO DAILY, (Reported) Entered as Reported by: NICOLE ARRIAGA on 11/15/20 1226 Review of Systems Review of Systems Constitutional: see HPI EENTM: No Symptoms Reported Respiratory: No Symptoms Reported Cardiovascular: Chest Pain Gastrointestinal: Nausea, Vomiting Genitourinary: No Symptoms Reported Musculoskeletal: back pain Skin: no symptoms reported Psychiatric/Neurological: No Symptoms Reported All Other Systems Reviewed Negative Unless Noted: Yes Past Aciqbgr-Pdwglv-Emzhiq Hx Patient Social History Tobacco Use?: No Use of E-Cig and/or Vaping dev: No Substance use?: No Alcohol Use?: No Immunizations Up To Date Influenza Vaccine Up-to-Date: Yes; Up-to-Date First/Initial COVID19 Vaccinat: 2020 Second COVID19 Vaccination [place]obi: 2020 Third COVID19 Vaccination Date: 2021 Seasonal Allergies Seasonal Allergies: No Past Medical History Surgeries: Yes Abdominal, Appendectomy, Bladder Surgery, Bowel Surgery, Breast, Cardiac, Coronary Stent, Eye Surgery, Gallbladder, Hysterectomy, Orthopedic Respiratory: No Cardiac: Yes Heart Attack Neurological: Yes Headaches /Migraines Genitourinary: No Gastrointestinal: No Musculoskeletal: No Endocrine: Yes Diabetes, Non-Insulin dep HEENT: Yes Cataract Cancer: Yes Breast Did You Recieve Any Treatments: Yes What Type of Treatment Did You: Surgical Intervention Psychosocial: No Integumentary: No Blood Disorders: Yes Adverse Reaction/Blood Tranf: No Family Medical History No Pertinent Family Hx Physical Exam Vital Signs Vital Signs - First Documented 03/29/23 12:25 Temp 36.6 Pulse 60 Resp 16 B/P (MAP) 169/68 (101) Pulse Ox 98 O2 Delivery Room Air Capillary Refill : Less Than 3 Seconds Height, Weight, BMI Height: 5'4.00" Weight: 128lbs. oz. 58.496338zg; 17.00 BMI Method:Stated General Appearance: Chronically ill, Thin HEENT: PERRL/EOMI Neck: Normal Inspection Respiratory: Lungs Clear, Normal Breath Sounds, No Accessory Muscle Use, No Respiratory Distress Cardiovascular: Regular Rate, Rhythm, Normal Peripheral Pulses Gastrointestinal: Normal Bowel Sounds, Soft, Distended, Tenderness (diffuse mild tenderness) Extremity: Normal Inspection, Normal Range of Motion, No Calf Tenderness, No Pedal Edema, Other (tenderness diffusely to the spine - even with light palpation) Neurologic/Psychiatric: Alert, Oriented x3, No Motor/Sensory Deficits Skin: Warm/Dry, Pallor Progress/Results/Core Measures Results/Orders Lab Results Laboratory Tests Test 03/29/23 12:42 03/29/23 14:10 Range/Units White Blood Count 10.2 4.3-11.0 10^3/uL Red Blood Count 3.91 3.80-5.11 10^6/uL Hemoglobin 12.6 11.5-16.0 g/dL Hematocrit 37 35-52 % Mean Corpuscular Volume 94 80-99 fL Mean Corpuscular Hemoglobin 32 25-34 pg Mean Corpuscular Hemoglobin Concent 34 32-36 g/dL Red Cell Distribution Width 12.1 10.0-14.5 % Platelet Count 215 130-400 10^3/uL Mean Platelet Volume 8.9 L 9.0-12.2 fL Immature Granulocyte % (Auto) 1 % Neutrophils (%) (Auto) 84 H 42-75 % Lymphocytes (%) (Auto) 9 L 12-44 % Monocytes (%) (Auto) 6 0-12 % Eosinophils (%) (Auto) 1 0-10 % Basophils (%) (Auto) 0 0-10 % Neutrophils # (Auto) 8.5 H 1.8-7.8 10^3/uL Lymphocytes # (Auto) 0.9 L 1.0-4.0 10^3/uL Monocytes # (Auto) 0.6 0.0-1.0 10^3/uL Eosinophils # (Auto) 0.1 0.0-0.3 10^3/uL Basophils # (Auto) 0.0 0.0-0.1 10^3/uL Immature Granulocyte # (Auto) 0.1 0.0-0.1 10^3/uL Prothrombin Time 13.1 12.2-14.7 SEC INR Comment 1.0 0.8-1.4 Activated Partial Thromboplast Time 30 24-35 SEC Sodium Level 132 L 135-145 MMOL/L Potassium Level 2.6 L 3.6-5.0 MMOL/L Chloride Level 91 L 98-107 MMOL/L Carbon Dioxide Level 28 21-32 MMOL/L Anion Gap 13 5-14 MMOL/L Blood Urea Nitrogen 20 H 7-18 MG/DL Creatinine 0.97 0.60-1.30 MG/DL Estimat Glomerular Filtration Rate 57 BUN/Creatinine Ratio 21 Glucose Level 140 H 70-105 MG/DL Calcium Level 9.7 8.5-10.1 MG/DL Corrected Calcium 9.7 8.5-10.1 MG/DL Magnesium Level 1.9 1.6-2.4 MG/DL Total Bilirubin 0.4 0.1-1.0 MG/DL Aspartate Amino Transf (AST/SGOT) 21 5-34 U/L Alanine Aminotransferase (ALT/SGPT) 12 0-55 U/L Alkaline Phosphatase 50 40-136 U/L Myoglobin 74.7 10.0-92.0 NG/ML Troponin I < 0.028 <0.028 NG/ML Total Protein 7.2 6.4-8.2 GM/DL Albumin 4.0 3.2-4.5 GM/DL Urine Color YELLOW Urine Clarity SL CLOUDY Urine pH 7.5 5-9 Urine Specific [place] 1.020 1.016-1.022 Urine Protein TRACE H NEGATIVE Urine Glucose (UA) NEGATIVE NEGATIVE Urine Ketones NEGATIVE NEGATIVE Urine Nitrite NEGATIVE NEGATIVE Urine Bilirubin NEGATIVE NEGATIVE Urine Urobilinogen 0.2 < = 1.0 MG/DL Urine Leukocyte Esterase TRACE H NEGATIVE Urine RBC (Auto) NEGATIVE NEGATIVE Urine RBC NONE /HPF Urine WBC RARE /HPF Urine Squamous Epithelial Cells NONE /HPF Urine Crystals NONE /LPF Urine Bacteria LARGE H /HPF Urine Casts NONE /LPF Urine Mucus NEGATIVE /LPF Urine Culture Indicated YES My Orders Orders - PORTILLO PARNELL MD Ekg Tracing (03/29/23 12:25) Cbc With Automated Diff (03/29/23 12:43) Magnesium (03/29/23 12:43) Chest 1 View, Ap/Pa Only (03/29/23 12:43) Comprehensive Metabolic Panel (03/29/23 12:43) Myoglobin Serum (03/29/23 12:43) Protime With Inr (03/29/23 12:43) Partial Thromboplastin Time (03/29/23 12:43) O2 (03/29/23 12:43) Monitor-Rhythm Ecg Trace Only (03/29/23 12:43) Lipid Panel (03/30/23 06:00) Ed Iv/Invasive Line Start (03/29/23 12:43) Troponin I Wade (03/29/23 12:43) Ua Culture If Indicated (03/29/23 13:09) Potassium Cl 10meq/50ml Ivpb (Kcl 10 Meq (03/29/23 13:15) Morphine Injection (Morphine Injection (03/29/23 13:22) Ct Angio Chst/Abd/Pelv W (03/29/23 13:22) Ns Iv 1000 Ml (Sodium Chloride 0.9%) (03/29/23 13:26) Iohexol Injection (Omnipaque 350 Mg/Ml 1 (03/29/23 13:30) Received Contrast (Hold Metformin- Contr (03/29/23 13:30) Ns (Ivpb) (Sodium Chloride 0.9% Ivpb Bag (03/29/23 13:30) Urine Culture (03/29/23 14:10) Morphine Injection (Morphine Injection (03/29/23 14:45) Morphine Injection (Morphine Injection (03/29/23 14:47) Medications Given in ED Current Medications Medications Dose Ordered Sig/Samson Route Start Time Stop Time Status Last Admin Dose Admin Iohexol 100 ml ONCE ONCE IV 03/29/23 13:30 03/29/23 13:31 DC 03/29/23 13:50 60 ML Sodium Chloride 100 ml ONCE ONCE IV 03/29/23 13:30 03/29/23 13:31 DC 03/29/23 13:50 59 ML Vital Signs/I&O 03/29/23 12:25 Temp 36.6 Pulse 60 Resp 16 B/P (MAP) 169/68 (101) Pulse Ox 98 O2 Delivery Room Air Blood Pressure Mean: 101 Admisison Planning May Need Admission (Planning): 13:12 Progress Progress Note : Time: 14:58 Progress Note Patient seen and evaluated by me, evaluation of includes physical exam, "chest pain protocol", urinalysis. CBC, Chem-12, troponin, magnesium, coags, urinalysis, chest x-ray and CT angio chest abdomen and pelvis were all obtained. Pertinent physical exam findings frail-appearing elderly female in moderate to severe distress due to back pain. She appears pale. She is not tachycardic, her blood pressure is adequate. Not hypoxic. She has significant tenderness to even light palpation down the entirety of her spine. No overlying rashes. Heart is regular, lungs are clear. Abdomen is soft, mildly distended. Bowel sounds are present. No lower extremity edema. She moves all extremities equally. She does seem to have some forgetfulness/poor memory. She follows commands appropriately. Differential diagnosis based on history and physical exam, spontaneous vertebral compression fracture, acute exacerbation of chronic pain, acute coronary syndrome, aortic dissection, infection urine versus pulmonary. Labs reviewed by me, patient has a white count of 10.2 with hemoglobin of 12.6 hematocrit of 37, platelets of 215. 84% segs Chem-12 his reviewed sodium of 132 potassium of 2.6 chloride of 91, CO2 of 28 BUN of 20 creatinine of 0.97 serum glucose 140. Troponin is undetectable. Coags are all within normal limits. Urinalysis shows a specific gravity of 1.020, trace leukocyte esterase rare white blood cells no red blood cells. Trace protein, large bacteria nitrite negative. Chest x-ray shows no concerning findings as read by radiology, CT angio of chest abdomen pelvis did not show any issues with the aorta, no dissection. She did have a high-grade small bowel obstruction. Patient was treated with a couple of doses of IV morphine and achieved some significant r elief to her "back" pain. On reexamination her abdomen is very tender and distended. It is not tight however. She does have bowel sounds. I also started some IV fluids and potassium replacement. I discussed the case with Dr. Farley who requests an NG tube be placed. He will see the patient in consultation. Will discuss with Dr. Seble Lau for admission. Initial ECG Impression Date: March 29, 2023 Initial ECG Impression Time: 12:46 Initial ECG Rate: 59 Initial ECG Rhythm: Normal Sinus Initial ECG Intervals: Normal Comment ST depression V3 and V4 1mm Diagnostic Imaging Diagonstic Imaging: Xray Plain Films/CT/US/NM/MRI: chest Comments [facility], [place] NAME: MARIA LUZ [facility] REC#: [id number] PT STATUS: REG ER : 1935 PHYSICIAN: PORTILLO PARNELL MD ADMIT DATE: 03/29/23/ER Draft Date of Exam:03/29/23 CHEST 1 VIEW, AP/PA ONLY Indication: Chest and back pain. Compared with radiograph 11/14/2022. Findings: Some linear right perihilar scarring as a chronic finding noted. Some thickening of the central airways and prominence of the perihilar interstitial lung markings is not clearly changed given differences in film penetration. No focal consolidation. The heart size and pulmonary vascularity stable. No effusion or pneumothorax. Impression: Stable chronic findings. Dictated on workstation # [id number] Dict: 03/29/23 1253 Trans: 03/29/23 1256 [facility] [id number] Interpreted by: JD MAIER Electronically signed by: Antonio Imaging: CT Comments [facility] [place], [place] NAME: MARIA LUZ [facility] REC#: [id number] PT STATUS: REG ER : 1935 PHYSICIAN: PORTILLO PARNELL MD ADMIT DATE: 03/29/23/ER Draft Date of Exam:03/29/23 CT ANGIO CHST/ABD/PELV W PROCEDURE: CT angiography of the chest with contrast and CT abdomen and pelvis with contrast. TECHNIQUE: Multiple contiguous axial images were obtained through the chest, abdomen and pelvis after administration of intravenous contrast. 3D MIP reconstructed CT angiography acquisitions of the aorta were then performed. Auto Exposure Controls were utilized during the CT exam to meet ALARA standards for radiation dose reduction. INDICATION: Back pain. COMPARISON: CT abdomen and pelvis of 11/14/2020. FINDINGS: The thoracic and abdominal aorta are normal in caliber. There is no aortic dissection or penetrating atherosclerotic ulcer present. No pulmonary emboli. Heart is normal in size and without effusion. No mediastinal or hilar lymphadenopathy. Consolidations are present in the lateral segment of the right lower lobe. There are also a mixture of consolidations with centrilobular micronodules and bronchiectasis in the right upper lobe. No pleural effusion or pneumothorax. No free intraperitoneal air or fluid. The stomach is moderately distended with fluid. The duodenum is severely dilated and fluid-filled. There is the suggestion of obstruction of the small bowel to the duodenum and jejunal junction. Stranding is present around the duodenum. No overt pneumatosis within the duodenum. The liver and spleen are normal. Pancreas is grossly normal. No adrenal mass. No renal mass or obstructive uropathy. Urinary bladder is normally filled. The distal small bowel loops are decompressed. Partial colectomy with the small bowel-colonic anastomosis noted in the central lower abdomen. No worrisome focal osseous lesions. Diffuse osseous demineralization. IMPRESSION: 1. There is likely a high-grade obstruction of the small bowel at the duodenal-jejunal junction. There are surgical changes in this region, although they may be involving the stomach and correlation with patient's surgical history is advised. 2. Multifocal consolidations within the right lung are suspicious for aspiration given the proximal small bowel obstruction. 3. No aortic dissection. Dictated on workstation # [id number] Dict: 03/29/23 1405 Trans: 03/29/23 1417 [facility] [id number] Interpreted by: WINTER MILLER MD Electronically signed by: Departure Communication (Admissions) discussed with Dr Lau (hospitalist) Time/Spoke to Consulting Phy: 14:[address] Farley (surgery) Impression Primary Impression: SBO (small bowel obstruction) Additional Impressions: Hypokalemia Chest pain Qualified Codes: R07.9 - Chest pain, unspecified Back pain Qualified Codes: M54.9 - Dorsalgia, unspecified Disposition: 09 ADMITTED INPATIENT Condition: Improved Admissions Decision to Admit Reason: Admit from ER (General) Decision to Admit/Date: March 29, 2023 Time/Decision to Admit Time: 14:33 Departure-Patient Inst. Referrals: YA ROACH MD (PCP/Family) Primary Care Physician Copy Copies To 1: YA ROACH MD, KATHRYN M MD March 29, 2023 12:49
[2023-03-29 12:51] LABS: BASOPHILS % (AUTO) 0 % (0-10); EOSINOPHILS # (AUTO) 0.1 10^3/uL (0.0-0.3); EOSINOPHILS % (AUTO) 1 % (0-10); HEMATOCRIT 37 % (35-52); HEMOGLOBIN 12.6 g/dL (11.5-16.0); LYMPHOCYTES # (AUTO) 0.9 10^3/uL (1.0-4.0); LYMPHOCYTES % (AUTO) 9 % (12-44); MEAN CORPUSCULAR HEMOGLOBIN 32 pg (25-34); MEAN CORPUSCULAR HGB CONC 34 g/dL (32-36); MEAN CORPUSCULAR VOLUME 94 fL (80-99); MEAN PLATELET VOLUME 8.9 fL (9.0-12.2); MONOCYTES # (AUTO) 0.6 10^3/uL (0.0-1.0); MONOCYTES % (AUTO) 6 % (0-12); NEUTROPHILS # (AUTO) 8.5 10^3/uL (1.8-7.8); NEUTROPHILS % (AUTO) 84 % (42-75); PLATELET COUNT 215 10^3/uL (130-400); WHITE BLOOD COUNT 10.2 10^3/uL (4.3-11.0)
--- NOTE | 2023-03-29 12:56 | Diagnostic Imaging Report ---
Indication: Chest and back pain. Compared with radiograph 11/14/2022. Findings: Some linear right perihilar scarring as a chronic finding noted. Some thickening of the central airways and prominence of the perihilar interstitial lung markings is not clearly changed given differences in film penetration. No focal consolidation. The heart size and pulmonary vascularity stable. No effusion or pneumothorax. Impression: Stable chronic findings. Dictated by: Dictated on workstation # [id number]
[2023-03-29 12:58] LABS: POTASSIUM 2.6 MMOL/L (3.6-5.0)
[2023-03-29 12:59] LABS: CALCIUM 9.7 MG/DL (8.5-10.1)
[2023-03-29 13:01] LABS: TOTAL PROTEIN 7.2 GM/DL (6.4-8.2)
[2023-03-29 13:02] LABS: BILIRUBIN,TOTAL 0.4 MG/DL (0.1-1.0); PROTHROMBIN TIME PATIENT 13.1 SEC (12.2-14.7)
[2023-03-29 13:04] LABS: CREATININE SERUM 0.97 MG/DL (0.60-1.30)
[2023-03-29 13:07] LABS: MAGNESIUM 1.9 MG/DL (1.6-2.4)
[2023-03-29] MEDS ORDERED: morphine INJ 10 MG/ML 1ML (SYR OR VIAL) IVP STA ×2 (13:22→14:45)
[2023-03-29] MEDS ORDERED: NS IV 1000 ML 1,000 ML IV STA (13:26)
[2023-03-29] MEDS ORDERED: IOHEXOL 350 MG/ML 100 ML (OMNIPAQUE 350) VIAL IV ONE (13:30)
[2023-03-29] MEDS ORDERED: NS 100 ML (IVPB) BAG IV ONE (13:30)
[2023-03-29] MEDS ORDERED: HOLD METFORMIN - RECEIVED CONTRAST 20 ML VIAL IV SCH (13:30)
[2023-03-29] MEDS: POTASSIUM CL 10MEQ/50ML IVPB 50 ML IV SCH ×2 (13:34→14:35)
--- NOTE | 2023-03-29 14:18 | Diagnostic Imaging Report ---
PROCEDURE: CT angiography of the chest with contrast and CT abdomen and pelvis with contrast. TECHNIQUE: Multiple contiguous axial images were obtained through the chest, abdomen and pelvis after administration of intravenous contrast. 3D MIP reconstructed CT angiography acquisitions of the aorta were then performed. Auto Exposure Controls were utilized during the CT exam to meet ALARA standards for radiation dose reduction. INDICATION: Back pain. COMPARISON: CT abdomen and pelvis of 11/14/2020. FINDINGS: The thoracic and abdominal aorta are normal in caliber. There is no aortic dissection or penetrating atherosclerotic ulcer present. No pulmonary emboli. Heart is normal in size and without effusion. No mediastinal or hilar lymphadenopathy. Consolidations are present in the lateral segment of the right lower lobe. There are also a mixture of consolidations with centrilobular micronodules and bronchiectasis in the right upper lobe. No pleural effusion or pneumothorax. No free intraperitoneal air or fluid. The stomach is moderately distended with fluid. The duodenum is severely dilated and fluid-filled. There is the suggestion of obstruction of the small bowel to the duodenum and jejunal junction. Stranding is present around the duodenum. No overt pneumatosis within the duodenum. The liver and spleen are normal. Pancreas is grossly normal. No adrenal mass. No renal mass or obstructive uropathy. Urinary bladder is normally filled. The distal small bowel loops are decompressed. Partial colectomy with the small bowel-colonic anastomosis noted in the central lower abdomen. No worrisome focal osseous lesions. Diffuse osseous demineralization. IMPRESSION: 1. There is likely a high-grade obstruction of the small bowel at the duodenal-jejunal junction. There are surgical changes in this region, although they may be involving the stomach and correlation with patient's surgical history is advised. 2. Multifocal consolidations within the right lung are suspicious for aspiration given the proximal small bowel obstruction. 3. No aortic dissection. Dictated by: Dictated on workstation # [id number]
[2023-03-29 14:22] LABS: BILIRUBIN,URINE NEGATIVE (NEGATIVE); CLARITY,URINE SL CLOUDY; COLOR,URINE YELLOW; GLUCOSE, URINE (UA) NEGATIVE (NEGATIVE); KETONES,URINE NEGATIVE (NEGATIVE); LEUKOCYTE ESTERASE ,URINE TRACE (NEGATIVE); NITRITE,URINE NEGATIVE (NEGATIVE); PH,URINE 7.5 (5-9); PROTEIN,URINE TRACE (NEGATIVE)
[2023-03-29 14:31] LABS: BACTERIA,URINE LARGE /HPF; WBC,URINE RARE /HPF
[2023-03-29] MEDS ORDERED: morphine INJ 10 MG/ML 1ML (SYR OR VIAL) ONE (14:47)
--- NOTE | 2023-03-29 15:33 | History & Physical-Hospitalist ---
History of Present Illness HPI/Chief Complaint Pt is an 87yoCF with a PMH of breast cancer, coronary artery disease, failure, GI bleed, small bowel obstruction, bowel resection, hypothyroidism who presented to the emergency department due to chest and back pain along with stomach pain. She reports that it started in the past 24 hours. Her last bowel movement was 2 days ago but she believes she is passing gas this morning. She has a history of a bowel obstruction necessitating bowel resection in the past she was up at for over a week for this. Symptoms are similar to that. She reported her pain is 10 out of [address] revealed a high grade small bowel obstruction. NGT was attempted but unable to be passed and she would not tolerate repeat atte mpt. Pain is improved with morphine though. Source: patient Date Seen 03/29/23 Time Seen by a Provider: 15:28 Attending Physician David Pittman MD PCP Admitting Physician: Attending Physician: Referring Physician Date of Admission Home Medications & Allergies Home Medications Reviewed patient Home Medication Reconciliation performed by pharmacy medication reconciliations clinical dietetic technician and/or nursing. Patients Allergies have been reviewed. Allergies Allergies Coded Allergies Penicillins (Unverified Allergy, Unknown, 03/30/23) carbamazepine (Verified Allergy, Unknown, 03/29/23) cyproheptadine (Verified Allergy, Unknown, 03/29/23) esomeprazole (Verified Allergy, Unknown, 03/29/23) indomethacin (Verified Allergy, Unknown, 03/29/23) lorazepam (Verified Allergy, Unknown, 03/29/23) CONFUSION, INABLITY TO MAKE SENTENCES simvastatin (Verified Allergy, Unknown, 03/29/23) Past Ijddphg-Ahyrmk-Ohsvgx Hx Patient Social History Tobacco Use?: No Use of E-Cig and/or Vaping dev: No Substance use?: No Alcohol Use?: No Immunizations Up To Date Date of Influenza Vaccine: Aug 12, 2020 First/Initial COVID19 Vaccinat: 2020 Second COVID19 Vaccination Tobi: 2020 Date of Pneumonia Vaccine: Aug 11, 2019 Seasonal Allergies Seasonal Allergies: No Current Status Advance Directives: No Communicates: Verbally Primary Language: Mongolian Preferred Spoken Language: Mongolian Is interpretation needed?: No Sensory deficits: Vision impairment Implanted or Applied Medical D: Stents Past Medical History Surgeries: Abdominal, Appendectomy, Bladder Surgery, Bowel Surgery, Breast, Cardiac, Coronary Stent, Eye Surgery, Gallbladder, Hysterectomy, Orthopedic Heart Attack Headaches /Migraines Diabetes, Non-Insulin dep Cataract Breast Did You Recieve Any Treatments: Yes What Type of Treatment Did You: Surgical Intervention Blood Disorders: Yes Adverse Reaction/Blood Tranf: No Family Medical History No Pertinent Family Hx Review of Systems Constitutional: see HPI Physical Exam Physical Exam Vital Signs Vital Signs - First Documented 03/29/23 12:25 Temp 36.6 Pulse 60 Resp 16 B/P (MAP) 169/68 (101) Pulse Ox 98 O2 Delivery Room Air Capillary Refill : Less Than 3 Seconds Height, Weight, BMI Height: 5'4.00" Weight: 128lbs. oz. 58.931836mb; 17.00 BMI Method:Stated General Appearance: No Apparent Distress, Thin Respiratory: Lungs Clear, No Respiratory Distress Cardiovascular: Regular Rate, Rhythm Gastrointestinal: Abnormal Bowel Sounds (quiet); No Distended; Tenderness (diffuse) Extremity: No Calf Tenderness, No Pedal Edema, Pedal Edema (non pitting) Neurologic/Psychiatric: Alert, Oriented x3 Results Results/Procedures Labs Laboratory Tests 03/29/23 12:42 03/30/23 05:55 Patient resulted labs reviewed. Imaging: Reviewed Imaging Report Imaging [facility] [place], [place] NAME: MARIA LUZ CANTU [facility] REC#: [id number] PT STATUS: REG ER : 1935 PHYSICIAN: PORTILLO PARNELL MD ADMIT DATE: 03/29/23/ER Draft Date of Exam:03/29/23 CT ANGIO CHST/ABD/PELV W PROCEDURE: CT angiography of the chest with contrast and CT abdomen and pelvis with contrast. TECHNIQUE: Multiple contiguous axial images were obtained through the chest, abdomen and pelvis after administration of intravenous contrast. 3D MIP reconstructed CT angiography acquisitions of the aorta were then performed. Auto Exposure Controls were utilized during the CT exam to meet ALARA standards for radiation dose reduction. INDICATION: Back pain. COMPARISON: CT abdomen and pelvis of 11/14/2020. FINDINGS: The thoracic and abdominal aorta are normal in caliber. There is no aortic dissection or penetrating atherosclerotic ulcer present. No pulmonary emboli. Heart is normal in size and without effusion. No mediastinal or hilar lymphadenopathy. Consolidations are present in the lateral segment of the right lower lobe. There are also a mixture of consolidations with centrilobular micronodules and bronchiectasis in the right upper lobe. No pleural effusion or pneumothorax. No free intraperitoneal air or fluid. The stomach is moderately distended with fluid. The duodenum is severely dilated and fluid-filled. There is the suggestion of obstruction of the small bowel to the duodenum and jejunal junction. Stranding is present around the duodenum. No overt pneumatosis within the duodenum. The liver and spleen are normal. Pancreas is grossly normal. No adrenal mass. No renal mass or obstructive uropathy. Urinary bladder is normally filled. The distal small bowel loops are decompressed. Partial colectomy with the small bowel-colonic anastomosis noted in the central lower abdomen. No worrisome focal osseous lesions. Diffuse osseous demineralization. IMPRESSION: 1. There is likely a high-grade obstruction of the small bowel at the duodenal-jejunal junction. There are surgical changes in this region, although they may be involving the stomach and correlation with patient's surgical history is advised. 2. Multifocal consolidations within the right lung are suspicious for aspiration given the proximal small bowel obstruction. 3. No aortic dissection. Dictated on workstation # [id number] Dict: 03/29/23 1405 Trans: 03/29/23 1417 [facility] [id number] Interpreted by: WINTER MILLER MD Electronically signed by: Assessment/Plan Admission Diagnosis High grade small bowel obstruction Admission Status: Inpatient Order (span 2 midnights) Reason for Inpatient Admission: see below Assessment and Plan High grade small bowel obstruction h/o bowel resection h/o GI Bleed Keep NPO Continue IV morphine Surgery consulted ER attempted NGT but unable to pass Hgb stable- monitor Spoke with Dr Farley- likely small bowel follow through in AM Hypokalemia K 2.6 Replaced in ER Mag 1.9 Bacteria in urine No evidence of infection Monitor but will hold off on abx for now CAD CHF HTN Follows with Dr Tristan Has been told she has inoperable heart disease with worsening EF Dr Tristan recommended medical management Hold aspirin for now for possible intervention Hypothyroidism GERD Continue home meds as able but NPO so limited Breast cancer On tamoxifen Follows with Dr Lafleur Spoke with Dr Pittman (PCP) and he presumes it is metastatic due to back pain but not mentioned on imaging today Advance care planning Discussed code status with her and her daughter they state they have never thought about end of life wishes before but she would like her daughter to be her decision maker if needed At this time she states she would be amenable to life support "if absolutely necessary" but plans to talk further with her daughter about this DVT ppx: SCDs Diagnosis/Problems Diagnosis/Problems (1) SBO (small bowel obstruction) Status: Acute (2) Hypokalemia Status: Acute MINERVA MANZO MD March 29, 2023 15:33
--- NOTE | 2023-03-29 16:02 | Consultation - Surgery ---
KACEY MEDEIROS 03/29/23 1602: History of Present Illness History of Present Illness Patient Consulted On(hussein/time) 03/29/23 15:50 Date Seen by Provider: March 29, 2023 Time Seen by Provider: 15:15 Reason for Visit: suspected Small Bowel Obstruction History of Present Illness Pt is an 87yo female seen in the ER with her daughter, she came in for chest pain that became most noticeable yesterday and worsened overnight, she reports an extensive history of surgeries and says she has a large amount of adhesions that have caused bowel obstructions in the past. She was given morphine in the ER, and says her pain is mostly isolated now in her RUQ, suprapubic region, and her lumbar spine, she rates it all an 8/10 with her medicine. The pain is associated with visible abdominal distension/pressure, nausea, dry heaving. She denies abnormal bowel movements(last one was yesterday), dysuria, fevers or chills, loss in appetite, or any recent trauma. 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 Allergies and Home Medications Allergies Coded Allergies: Penicillins (Unverified Allergy, Unknown, 03/30/23) carbamazepine (Verified Allergy, Unknown, 03/29/23) cyproheptadine (Verified Allergy, Unknown, 03/29/23) esomeprazole (Verified Allergy, Unknown, 03/29/23) indomethacin (Verified Allergy, Unknown, 03/29/23) lorazepam (Verified Allergy, Unknown, 03/29/23) CONFUSION, INABLITY TO MAKE SENTENCES simvastatin (Verified Allergy, Unknown, 03/29/23) Patient Home Medication List Aspirin (Aspirin EC) 81 Mg Tablet.dr, 81 MG PO DAILY, (Reported) Entered as Reported by: NICOLE ARRIAGA on 11/15/20 1122 Last Action: Reviewed Carvedilol (Coreg) 6.25 Mg Tablet, 6.25 MG PO BID, (Reported) Entered as Reported by: NICOLE ARRIAGA on 03/30/23 1253 Last Action: Reviewed Cetirizine HCl (Allergy Relief) 10 Mg Tablet, 10 MG PO DAILY, (Reported) Entered as Reported by: NICOLE ARRIAGA on 03/30/23 1253 Last Action: Reviewed Cyanocobalamin (Cyanocobalamin Injection) 1,000 Mcg/Ml Inj, 1 ML IM MONTHLY, (Reported) Entered as Reported by: NICOLE ARRIAGA on 11/15/201121 Last Action: Reviewed Fentanyl (Fentanyl Patch 50 MCG) 50 Mcg/Hour Patch.td72, 50 MCG TD Q72H, (Reported) Entered as Reported by: NICOLE ARRIAGA on 03/30/231252 Last Action: Reviewed Furosemide (Furosemide) 20 Mg Tablet, 20 MG PO DAILY PRN for FLUID RETENTION, (Reported) Entered as Reported by: NICOLE ARRIAGA on 11/15/201121 Last Action: Reviewed Hydrocodone/Acetaminophen (Hydrocodone-Acetamin 10-325 mg) 1 Each Tablet, 1 EA PO Q6H PRN for PAIN-MODERATE (5-7), (Reported) Entered as Reported by: NICOLE ARRIAGA on 11/15/201121 Last Action: Reviewed Isosorbide Mononitrate (Isosorbide Mononitrate ER) 120 Mg Tab.er.24h, 120 MG PO DAILY, (Reported) Entered as Reported by: NICOLE ARRIAGA on 03/30/231252 Last Action: Reviewed Lactobacillus Rhamnosus GG (Culturelle) 1 Each Capsule, 1 EACH PO DAILY, (Reported) Entered as Reported by: NICOLE ARRIAGA on 11/15/201121 Last Action: Reviewed Levothyroxine Sodium (Synthroid) 100 Mcg Tablet, 50 MCG PO DAILY, (Reported) Entered as Reported by: NICOLE ARRIAGA on 11/15/201128 Last Action: Reviewed Magnesium Oxide (Magnesium) 250 Mg Tablet, 250 MG PO DAILY, (Reported) Entered as Reported by: NICOLE ARRIAGA on 11/15/201121 Last Action: Reviewed Melatonin (Melatonin) 10 Mg Tablet, 10 MG PO HS, (Reported) Entered as Reported by: NICOLE ARRIAGA on 11/15/201121 Last Action: Reviewed Nitroglycerin (Nitroglycerin) 0.4 Mg Tab.subl, 0.4 MG SL UD PRN for CHEST PAIN, (Reported) Entered as Reported by: NICOLE ARRIAGA on 11/15/201122 Last Action: Reviewed Pantoprazole Sodium (Pantoprazole Sodium) 40 Mg Tablet.dr, 40 MG PO BID, (Reported) Entered as Reported by: NICOLE ARRIAGA on 11/15/201121 Last Action: Reviewed Pediatric Multivit No.203/Iron (Flintstones with Iron Tab Chew) 18 Mg Iron Tab.chew, 18 MG PO DAILY, (Reported) Entered as Reported by: NICOLE ARRIAGA on 03/30/23 125 Last Action: Reviewed Potassium Chloride (Potassium Chloride) 20 Meq Tab.er.prt, 40 MEQ PO HS, (Reported) Entered as Reported by: NICOLE ARRIAGA on 11/15/20 112 Last Action: Reviewed Potassium Chloride (Potassium Chloride) 20 Meq Tablet.er, 60 MEQ PO DAILY, (Reported) Entered as Reported by: NICOLE ARRIAGA on 03/30/23 1301 Last Action: Reviewed Tamoxifen Citrate (Tamoxifen Citrate) 20 Mg Tablet, 20 MG PO DAILY, (Reported) Entered as Reported by: NICOLE ARRIAGA on 11/15/20 112 Last Action: Reviewed Topiramate (Topiramate) 50 Mg Tablet, 150 MG PO HS, (Reported) Entered as Reported by: NICOLE ARRIAGA on 11/15/201121 Last Action: Reviewed Torsemide (Torsemide) 20 Mg Tablet, 20 MG PO DAILY PRN for FLUID RETENTION, (Reported) Entered as Reported by: NICOLE ARRIAGA on 03/30/23 125 Last Action: Reviewed Discontinued Medications Carvedilol (Carvedilol) 12.5 Mg Tablet, 12.5 MG PO BID, (Reported) Discontinued Reason: Duplicate Order Entered as Reported by: NICOLE ARRIAGA on 11/15/201121 Last Action: Discontinued Fluticasone Propionate (Fluticasone Propionate) 16 Gm [place].susp, 1 SPRAY NSEACH BID, (Reported) Discontinued Reason: No Longer Taking Entered as Reported by: NICOLE ARRIAGA on 11/15/201121 Last Action: Discontinued Hydrocodone/Acetaminophen (Hydrocodone-Acetamin 10-325 mg) 1 Each Tablet, 1 EACH PO Q6H PRN for PAIN-MODERATE (5-7) Discontinued Reason: No Longer Taking Prescribed by: HUGO MELTON on 11/16/20 1631 Last Action: Discontinued Lidocaine (Lidocaine 5% Patch) 1 Each Adh..patch, 1 PATCH TD DAILY PRN for PAIN-BREAKTHROUGH, (Reported) Discontinued Reason: No Longer Taking Entered as Reported by: NICOLE ARRIAGA on 11/15/201121 Last Action: Discontinued Metolazone (Metolazone) 2.5 Mg Tablet, 2.5 MG PO DAILY PRN for FLUID RETENTION, (Reported) Discontinued Reason: No Longer Taking Entered as Reported by: NICOLE ARRIAGA on 11/15/20 112 Last Action: Discontinued Multivits-Min/Iron/FA/Lutein (Centrum Silver Women Tablet) 1 Each Tablet, 1 EACH PO DAILY, (Reported) Discontinued Reason: No Longer Taking Entered as Reported by: NICOLE ARRIAGA on 11/15/20 1122 Last Action: Discontinued Pedi Mv No.79/Ferrous Fumarate (Flintstones with Iron Tab Chew) 18 Mg Tab.chew, 18 MG PO DAILY, (Reported) Discontinued Reason: Prescription changed Entered as Reported by: NICOLE ARRIAGA on 11/15/20 112 Zinc Gluconate (Zinc) 50 Mg Tablet, 50 MG PO DAILY, (Reported) Discontinued Reason: No Longer Taking Entered as Reported by: NICOLE ARRIAGA on 11/15/20 1226 Last Action: Discontinued Past Aryjygh-Ofezgc-Bpxrwo Hx Patient Social History 2nd Hand Smoke Exposure: No Recent Hopitalizations: No (DEC 2018-MASTECTOMY) Alcohol Use?: No Have you traveled recently?: No Immunizations Up To Date Date of Pneumonia Vaccine: Aug 11, 2019 Date of Influenza Vaccine: Aug 12, 2020 Seasonal Allergies Seasonal Allergies: No Surgeries History of Surgeries: Yes Surgeries: Abdominal, Appendectomy, Bladder Surgery, Bowel Surgery, Breast, Cardiac, Coronary Stent, Eye Surgery, Gallbladder, Hysterectomy, Orthopedic Respiratory History of Respiratory Disorde: No Cardiovascular History of Cardiac Disorders: Yes Cardiac Disorders: Heart Attack Neurological History of Neurological Disord: Yes Neurological Disorders: Headaches /Migraines Genitourinary History of Genitourinary Disor: No Gastrointestinal History of Gastrointestinal Di: No Musculoskeletal History of Musculoskeletal Dis: No Endocrine History of Endocrine Disorders: Yes Endocrine Disorders: Diabetes, Non-Insulin dep HEENT History of HEENT Disorders: Yes HEENT Disorders: Cataract Cancer History of Cancer: Yes Cancer: Breast Psychosocial History of Psychiatric Problem: No Integumentary History of Skin or Integumenta: No Blood Transfusions History of Blood Disorders: Yes Adverse Reaction to a Blood Tr: No Family Medical History Significant Family History: No Pertinent Family Hx Review of Systems-General Constitutional: No chills, No diaphoresis, No fever EENTM: No vision loss, No hoarseness, No throat pain Respiratory: cough (confirmed she did have some coughing earlier); No dyspnea on exertion, No hemoptysis, No short of breath Cardiovascular: No chest pain (currently resolved), No edema; Hx of Intervention; No palpitations Gastrointestinal: abdominal pain (RUQ); No diarrhea, No loss of appetite; nausea, vomiting (dry heaves) Genitourinary: No dysuria, No frequency, No hematuria Musculoskeletal: back pain (Lumbar), joint pain; No muscle pain Skin: No change in color, No pruritus, No rash Psychiatric/Neurological: Denies Headache, Denies Numbness, Denies Paresthesia Physical Exam-General Problems Physical Exam Vital Signs Vital Signs - First Documented 03/29/23 12:25 Temp 36.6 Pulse 60 Resp 16 B/P (MAP) 169/68 (101) Pulse Ox 98 O2 Delivery Room Air Capillary Refill : Less Than 3 Seconds General Appearance: WD/WN, no apparent distress, thin HEENT: PERRL/EOMI; No photophobia Neck: non-tender, supple Respiratory: chest non-tender, no respiratory distress, no accessory muscle use, wheezing (RLL) Cardiovascular: regular rate, rhythm, no edema, no murmur Peripheral Pulses: 2+ Dorsalis Pedis (R), 2+ Left Dors-Pedis (L), 2+ Radial Pulses (R), 2+ Radial Pulses (L) Gastrointestinal: distended, guarding (with deep epigastric, and suprapubic palpation); No rebound, No hernia (none visible) Back: decreased range of motion, vertebral tenderness Extremities: non-tender, no pedal edema, no calf tenderness Neurologic/Psychiatric: alert, oriented x 3 Skin: warm/dry; No ecchymosis, No rash Lymphatic: no adenopathy (anterior cervical ) Data Review Labs Laboratory Tests 03/29/23 12:42: White Blood Count 10.2, Red Blood Count 3.91, Hemoglobin 12.6, Hematocrit 37, Mean Corpuscular Volume 94, Mean Corpuscular Hemoglobin 32, Mean Corpuscular Hemoglobin Concent 34, Red Cell Distribution Width 12.1, Platelet Count 215, Mean Platelet Volume 8.9L, Immature Granulocyte % (Auto) 1, Neutrophils (%) (Auto) 84H, Lymphocytes (%) (Auto) 9L, Monocytes (%) (Auto) 6, Eosinophils (%) (Auto) 1, Basophils (%) (Auto) 0, Neutrophils # (Auto) 8.5H, Lymphocytes # (Auto) 0.9L, Monocytes # (Auto) 0.6, Eosinophils # (Auto) 0.1, Basophils # (Auto) 0.0, Immature Granulocyte # (Auto) 0.1, Prothrombin Time 13.1, INR Comment 1.0, Activated Partial Thromboplast Time 30, Sodium Level 132L, Potassium Level 2.6L, Chloride Level 91L, Carbon Dioxide Level 28, Anion Gap 13, Blood Urea Nitrogen 20H, Creatinine 0.97, Estimat Glomerular Filtration Rate 57, BUN/Creatinine Ratio 21, Glucose Level 140H, Calcium Level 9.7, Corrected Calcium 9.7, Magnesium Level 1.9, Total Bilirubin 0.4, Aspartate Amino Transf (AST/SGOT) 21, Alanine Aminotransferase (ALT/SGPT) 12, Alkaline Phosphatase 50, Myoglobin 74.7, Troponin I < 0.028, Total Protein 7.2, Albumin 4.0 03/29/23 14:10: Urine Color YELLOW, Urine Clarity SL CLOUDY, Urine pH 7.5, Urine Specific [place] 1.020, Urine Protein TRACEH, Urine Glucose (UA) NEGATIVE, Urine Ketones NEGATIVE, Urine Nitrite NEGATIVE, Urine Bilirubin NEGATIVE, Urine Urobilinogen 0.2, Urine Leukocyte Esterase TRACEH, Urine RBC (Auto) NEGATIVE, Urine RBC NONE, Urine WBC RARE, Urine Squamous Epithelial Cells NONE, Urine Crystals NONE, Urine Bacteria LARGEH, Urine Casts NONE, Urine Mucus NEGATIVE, Urine Culture Indicated YES Assessment/Plan Assessment/Plan Assessment/Plan Small bowel obstruction UTI possible right lower lobe aspiration Pain Nausea HTN * Volume resucitation via IVF * Bowel rest * Electrolyte correction/supplementation * prophylactic abx (for UTI and perioperative possibility) * Continue pain and nausea medicine * NGT if conservative treatment does not decrease distension * Will hold off on surgical intervention for now, but discuss the possibility if conservative treatment is insufficient ELIZABETH FOSTER DO 03/30/23 8146: History of Present Illness History of Present Illness History of Present Illness Consult requested by Dr. Lau for small bowel obstruction. Patient is an 87 year old female who presented with back pain. Had for about 24 hours or so. Pain got under control and having some diffuse abdominal pain. Having dry heaves. No emesis. Has history of gastric stapling surgery. Had ct scan demonstrating findings suggestive of bowel obstruction. Patient last bm 1 day ago and having some flatus she thinks but less than normal. Allergies and Home Medications Allergies Coded Allergies: Penicillins (Unverified Allergy, Unknown, 03/30/23) carbamazepine (Verified Allergy, Unknown, 03/29/23) cyproheptadine (Verified Allergy, Unknown, 03/29/23) esomeprazole (Verified Allergy, Unknown, 03/29/23) indomethacin (Verified Allergy, Unknown, 03/29/23) lorazepam (Verified Allergy, Unknown, 03/29/23) CONFUSION, INABLITY TO MAKE SENTENCES simvastatin (Verified Allergy, Unknown, 03/29/23) Patient Home Medication List Home Medication List Reviewed: Yes Aspirin (Aspirin EC) 81 Mg Tablet.dr, 81 MG PO DAILY, (Reported) Entered as Reported by: NICOLE ARRIAGA on 11/15/201121 Last Action: Reviewed Carvedilol (Coreg) 6.25 Mg Tablet, 6.25 MG PO BID, (Reported) Entered as Reported by: NICOLE ARRIAGA on 03/30/23 125 Last Action: Reviewed Cetirizine HCl (Allergy Relief) 10 Mg Tablet, 10 MG PO DAILY, (Reported) Entered as Reported by: NICOLE ARRIAGA on 03/30/231252 Last Action: Reviewed Cyanocobalamin (Cyanocobalamin Injection) 1,000 Mcg/Ml Inj, 1 ML IM MONTHLY, (Reported) Entered as Reported by: NICOLE ARRIAGA on 11/15/201121 Last Action: Reviewed Fentanyl (Fentanyl Patch 50 MCG) 50 Mcg/Hour Patch.td72, 50 MCG TD Q72H, (Reported) Entered as Reported by: NICOLE ARRIAGA on 03/30/231252 Last Action: Reviewed Furosemide (Furosemide) 20 Mg Tablet, 20 MG PO DAILY PRN for FLUID RETENTION, (Reported) Entered as Reported by: NICOLE ARRIAGA on 11/15/201121 Last Action: Reviewed Hydrocodone/Acetaminophen (Hydrocodone-Acetamin 10-325 mg) 1 Each Tablet, 1 EA PO Q6H PRN for PAIN-MODERATE (5-7), (Reported) Entered as Reported by: NICOLE ARRIAGA on 11/15/201121 Last Action: Reviewed Isosorbide Mononitrate (Isosorbide Mononitrate ER) 120 Mg Tab.er.24h, 120 MG PO DAILY, (Reported) Entered as Reported by: NICOLE ARRIAGA on 03/30/23 125 Last Action: Reviewed Lactobacillus Rhamnosus GG (Culturelle) 1 Each Capsule, 1 EACH PO DAILY, (Reported) Entered as Reported by: NICOLE ARRIAGA on 11/15/201121 Last Action: Reviewed Levothyroxine Sodium (Synthroid) 100 Mcg Tablet, 50 MCG PO DAILY, (Reported) Entered as Reported by: NICOLE ARRIAGA on 11/15/201128 Last Action: Reviewed Magnesium Oxide (Magnesium) 250 Mg Tablet, 250 MG PO DAILY, (Reported) Entered as Reported by: NICOLE ARRIAGA on 11/15/201121 Last Action: Reviewed Melatonin (Melatonin) 10 Mg Tablet, 10 MG PO HS, (Reported) Entered as Reported by: NICOLE ARRIAGA on 11/15/201121 Last Action: Reviewed Nitroglycerin (Nitroglycerin) 0.4 Mg Tab.subl, 0.4 MG SL UD PRN for CHEST PAIN, (Reported) Entered as Reported by: NICOLE ARRIAGA on 11/15/201122 Last Action: Reviewed Pantoprazole Sodium (Pantoprazole Sodium) 40 Mg Tablet.dr, 40 MG PO BID, (Reported) Entered as Reported by: NICOLE ARRIAGA on 11/15/201121 Last Action: Reviewed Pediatric Multivit No.203/Iron (Flintstones with Iron Tab Chew) 18 Mg Iron Tab.chew, 18 MG PO DAILY, (Reported) Entered as Reported by: NICOLE ARRIAGA on 03/30/23 125 Last Action: Reviewed Potassium Chloride (Potassium Chloride) 20 Meq Tab.er.prt, 40 MEQ PO HS, (Reported) Entered as Reported by: NICOLE ARRIAGA on 11/15/201121 Last Action: Reviewed Potassium Chloride (Potassium Chloride) 20 Meq Tablet.er, 60 MEQ PO DAILY, (Reported) Entered as Reported by: NICOLE ARRIAGA on 03/30/23 1301 Last Action: Reviewed Tamoxifen Citrate (Tamoxifen Citrate) 20 Mg Tablet, 20 MG PO DAILY, (Reported) Entered as Reported by: NICOLE ARRIAGA on 11/15/201121 Last Action: Reviewed Topiramate (Topiramate) 50 Mg Tablet, 150 MG PO HS, (Reported) Entered as Reported by: NICOLE ARRIAGA on 11/15/201121 Last Action: Reviewed Torsemide (Torsemide) 20 Mg Tablet, 20 MG PO DAILY PRN for FLUID RETENTION, (Reported) Entered as Reported by: NICOLE ARRIAGA on 03/30/23 1253 Last Action: Reviewed Discontinued Medications Carvedilol (Carvedilol) 12.5 Mg Tablet, 12.5 MG PO BID, (Reported) Discontinued Reason: Duplicate Order Entered as Reported by: NICOLE ARRIAGA on 11/15/201121 Last Action: Discontinued Fluticasone Propionate (Fluticasone Propionate) 16 Gm [place].susp, 1 SPRAY NSEACH BID, (Reported) Discontinued Reason: No Longer Taking Entered as Reported by: NICOLE ARRIAGA on 11/15/201121 Last Action: Discontinued Hydrocodone/Acetaminophen (Hydrocodone-Acetamin 10-325 mg) 1 Each Tablet, 1 EACH PO Q6H PRN for PAIN-MODERATE (5-7) Discontinued Reason: No Longer Taking Prescribed by: HUGO MELTON on 11/16/20 1631 Last Action: Discontinued Lidocaine (Lidocaine 5% Patch) 1 Each Adh..patch, 1 PATCH TD DAILY PRN for PAIN- BREAKTHROUGH, (Reported) Discontinued Reason: No Longer Taking Entered as Reported by: NICOLE ARRIAGA on 11/15/201121 Last Action: Discontinued Metolazone (Metolazone) 2.5 Mg Tablet, 2.5 MG PO DAILY PRN for FLUID RETENTION, (Reported) Discontinued Reason: No Longer Taking Entered as Reported by: NICOLE ARRIAGA on 11/15/201121 Last Action: Discontinued Multivits-Min/Iron/FA/Lutein (Centrum Silver Women Tablet) 1 Each Tablet, 1 EACH PO DAILY, (Reported) Discontinued Reason: No Longer Taking Entered as Reported by: NICOLE ARRIAGA on 11/15/201121 Last Action: Discontinued Pedi Mv No.79/Ferrous Fumarate (Flintstones with Iron Tab Chew) 18 Mg Tab.chew, 18 MG PO DAILY, (Reported) Discontinued Reason: Prescription changed Entered as Reported by: NICOLE ARRIAGA on 11/15/201121 Zinc Gluconate (Zinc) 50 Mg Tablet, 50 MG PO DAILY, (Reported) Discontinued Reason: No Longer Taking Entered as Reported by: NICOLE COCHRANZANT on 11/15/20 1226 Last Action: Discontinued Review of Systems-General Constitutional: No chills, No diaphoresis, No fever EENTM: No blurred vision, No double vision Respiratory: cough (confirmed she did have some coughing earlier); No dyspnea on exertion Gastrointestinal: abdominal pain, nausea; No vomiting (dry heaves) Genitourinary: No decreased output, No discharge Musculoskeletal: back pain (Lumbar), joint pain; No muscle pain Skin: No change in color, No change in hair/nails Psychiatric/Neurological: Denies Anxiety, Denies Depressed, Denies Emotional Problems All Other Systems Reviewed Negative Unless Noted: Yes (Negative excepted noted.) Physical Exam-General Problems Physical Exam General Appearance: WD/WN, no apparent distress, thin HEENT: PERRL/EOMI, normal ENT inspection Neck: non-tender, supple Respiratory: chest non-tender, no respiratory distress, no accessory muscle use Cardiovascular: regular rate, rhythm, no JVD Gastrointestinal: soft, distended (slight); No guarding (with deep epigastric, and suprapubic palpation), No rebound Rectal: deferred 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: normal 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 * Patient with all medical issues high risk, will try conservative management. * Small bowel follow through in am. * NPO Supervisory-Addendum Brief Verification & Attestation Participated in pt care: history, MDM, physical Personally performed: exam, history, MDM, supervision of care Care discussed with: Medical Student Procedures: n/a Results interpretation: Verified all documentation Verification and Attestation of Medical Student E/M Service A medical student performed and documented this service in my presence. I reviewed and verified all information documented by the medical student and made modifications to such information, when appropriate. I personally performed the physical exam and medical decision making. Elizabeth Foster, March 29, 2023,20:39 KACEY MEDEIROS March 29, 2023 16:02 ELIZABETH FOSTER DO March 30, 2023 13:36
--- OUTSIDE RECORDS SUMMARY | 2023-03-29 16:13 | XMS REPORT | Clinical Summary ---
Author Author [facility] Organization [facility] Address Unknown Phone Unavailable Care Team Providers Care Laboratory Sampler Name Role Phone David Pittman MD PCP Source Comments Some departments are not documenting in the electronic medical record. If you d o not see the information that you expected, contact Release of Information in [facility] [employer] Information Management department at [phone] for further assistan ce in locating additional records.[facility] Allergies Comments Active Allergy Reactions Criticality Noted Date Lorazepam MENTAL STATUS Medium 01/23/2018 CHANGES Indomethacin NAUSEA ONLY Low 01/23/2018 Esomeprazole Magnesium RASH Medium 018 Penicillins EDEMA Medium 02/28/2017 Insomnia Cyproheptadine RASH, SEE Medium 01/23/2018 COMMENTS Carbamazepine HEADACHE Medium 01/23/2018 Muscle weakness, and muscle pain. Simvastatin SEE COMMENTS Low 01/23/2018 Medications End Date Status Medication Sig Dispensed Refills Start Date Active cyanocobalamin (VITAMIN Inject 1 mL 0 B-12, RUBRAMIN) 1,000 into the mcg/mL injection muscle every 30 days. Active carvedilol (COREG) 12.5 Take 12.5 mg 0 mg tablet by mouth twice daily with meals. Take with food. Active furosemide (LASIX) 20 mg Take 20-40 mg 0 tablet by mouth every morning. Active isosorbide mononitrate SR Take 120 mg 0 (IMDUR) 30 mg tablet by mouth every morning. Active lidocaine (LIDODERM) 5 % Apply 1 Patch 0 topical patch topically to affected area every 12 hours. Apply patch for 12 hours, then remove for 12 hours before repeating. Active levothyroxine (SYNTHROID) Take 100 mcg 0 100 mcg by mouth tabletIndications: Half a daily 30 tablet po qd minutes before breakfast. Indications: Half a tablet po qd Active aspirin EC 81 mg tablet Take 81 mg by 0 mouth daily. Take with food. Active Magnesium 250 mg tab Take 1 tablet 0 by mouth daily. Active topiramate (TOPAMAX) 50 Take 2 11 mg tablet tablets by 8 mouth at bedtime daily. Active pedi multivit 43-iron Chew 1 tablet 0 fumarate (FLINTSTONES by mouth COMPLETE (IRON)) 18 mg daily. iron chew Active zinc sulfate 220 mg (50 Take 220 mg 0 mg elemental zinc) by mouth capsule daily. Active lactobacillus rhamnosus Take 1 0 (GG) (CULTURELLE) 10 capsule by billion cell cap mouth twice daily with meals. Active melatonin 10 mg tab Take 10 mg by 0 mouth at bedtime daily. Active sucralfate (CARAFATE) 1 Take one 360 tablet 3 gram tablet tablet by 9 mouth three times daily. Take on an empty stomach. Active pantoprazole DR Take one 90 tablet 3 (PROTONIX) 40 mg tablet tablet by 9 mouth twice daily. Active HYDROcodone/acetaminophen Take one 30 tablet 0 (NORCO) 5/325 mg tablet tablet by 9 mouth every 4 hours as needed for Pain Active tamoxifen (NOLVADEX) 20 Take 20 mg by 0 mg tablet mouth daily. Active nitroglycerin (NITROSTAT) Place 0.4 mg 0 0.4 mg tablet under tongue every 5 minutes as needed for Chest Pain. Max of 3 tablets, call 911. Active potassium chloride SR Take 90 mEq 0 (K-DUR) 10 mEq tablet by mouth three times daily. Take with a meal and a full glass of water. Active fluconazole (DIFLUCAN) Take one 14 tablet 0 200 mg tabletIndications: tablet by 9 esophageal candidiasis mouth daily. 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 Pneumoperitoneum 01/01/2019 Spasm of abdominal muscles of left side 03/26/2018 Spasm of abdominal muscles of right side 03/26/2018 Hematochezia 01/25/2018 Overview: Added automatically from request for alejandrina howe [id number] RLQ abdominal pain 01/25/2018 Overview: Added automatically from request for alejandrina howe [id number] Anemia 07/18/2017 Overview: Added automatically from request for alejandrina howe [id number] Chronic abdominal pain 07/18/2017 Overview: Added automatically from request for alejandrina howe [id number] Resolved Problems Resolved Date Problem Noted Date Diagnosed Date 03/03/2019 Marginal ulcer 01/03/2019 01/03/2019 Chronic gastric ulcer 07/18/2017 Overview: Added automatically from request for alejandrina howe [id number] Surgical History Surgery Date Site/Laterality Comments HX ROTATOR CUFF REPAIR 2007, 2009 Bilateral HX CATARACT REMOVAL 2017, 2015 Bilateral COLONOSCOPY SKIN BIOPSY MASTECTOMY Left [facility], UPPER GASTROINTESTINAL 03/12/2018 N/A ESOPHAG OGASTRODUODENOSCOPY performed by KIMBERLY De La Vega MD at ENDO/GI COLONOSCOPY 03/12/2018 N/A COLONOSCOPY per formed by Kareem De La Vega MD at ENDO/GI UPPER GASTROINTESTINAL 08/21/2017 N/A ESOPHAG OGASTRODUODENOSCOPY performed by KIMBERLY De La Vega MD at ENDO/GI UPPER GASTROINTESTINAL 03/23/2017 N/A ESOPHAG OGASTRODUODENOSCOPY performed by KIMBERLY De La Vega MD at ENDO/GI UPPER GASTROINTESTINAL 03/23/2017 ESOPHAGOGASTROD UODENOSCOPY CONTROL BLEEDING ENDOSCOPY performed by Kareem De La Vega MD at ENDO/GI CARDIAC CATHERIZATION 11/12/2014 - 11/11/2015 HX APPENDECTOMY 11/12/1948 - 11/11/1949 HX HYSTERECTOMY 11/12/1966 - 11/11/1967 HX CHOLECYSTECTOMY 11/12/2007 - 11/11/2008 COLON SURGERY 11/12/2010 - due to blockage 11/11/2011 REVISION COLOSTOMY 11/12/2010 - 11/11/2011 UPPER GASTROINTESTINAL 03/03/2019 N/A ESOPHAG OGASTRODUODENOSCOPY WITH SPECIMEN ENDOSCOPY COLLECTION BY BRUSHING/ WAS PANDA performed by Anupam Aguirre II, MD at [facility] Medical History Medical History Date Comments 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 Temporal arteritis (HCC) Kidney disease Migraine Cancer (HCC) 12/05/2018 left breast Limb alert care status left arm Type II diabetes mellitus (HCC) diet controlled Family History Medical History Relation Name Comments Alzheimer's Father Heart Attack Father Diabetes Mother Cancer-Colon Neg Hx Relation Name Status Comments Daughter Alive Father Mother Son Alive Social History Date Tobacco Use Types Packs/Day Years Used Smoking Tobacco: Never Smokeless Tobacco: Never Comments Alcohol Use Standard Drinks/Week No 0 (1 standard drink = 0.6 o z pure alcohol) Date Recorded Alcohol Use Answer Alcohol Use No Male: 9+ ounces (15+ Standard Drinks) per week Not o n file Threshold Female: 4.8+ ounces (8+ Standard Drinks) per week 0 Threshold Date Recorded Sex and Gender Information Value Sex Assigned at Not on file Gender Identity Not on file Sexual Orientation Not on file Obstetrics History Last Filed Vital Signs Reading Time Taken Comments Vital Sign 121/51 03/03/2019 9:34 AM CDT Blood Pressure 61 03/03/2019 9:15 AM CDT Pulse 36.2 C (97.2 F) 03/03/2019 9:10 AM CDT Temperature 14 02/07/2019 11:18 AM CDT Respiratory Rate 98% 03/03/2019 9:15 AM CDT Oxygen Saturation - - Inhaled Oxygen Concentration 53.4 kg (117 lb 12.8 oz) 03/03/2019 7:43 AM CDT Weight 160 cm (5' 3") 03/03/2019 7:43 AM CDT Height 20.87 03/03/2019 7:43 AM CDT Body Mass Index Plan of Treatment Health Maintenance Due Date Last Done Comments MEDICARE ANNUAL WELLNESS 1935 VISIT COVID-19 VACCINE (#1) 1935 DTAP/TDAP VACCINES (1 - 1955 Tdap) PHYSICAL (COMPREHENSIVE) 1955 EXAM SHINGLES RECOMBINANT 1987 VACCINE (1 of 2) OSTEOPOROSIS 2002 SCREENING/MONITORING PNEUMOCOCCAL VACCINE 65+ 2002 YRS (1 - PCV) ADVANCED CARE PLANNING 11/12/2022 DISCUSSION AND DOCUMENTATION DEPRESSION SCREENING 11/12/2022 INFLUENZA VACCINE (Season 08/12/2023 Ended) Results Not on filefrom Last 3 Months Insurance Type Payer Benefit Subscriber ID Effective Phone Address Plan / Dates Group Medicare MEDICARE MEDICARE [id number] 2002-P [phone] [id number] [place] [address] [facility] AARP [id number] 2016-P [id number] [place] [address] Advance Directives Date Inactivated Comments Code Status Date Activated 01/09/2019 2:45 PM Full Code 01/01/2019 8:12 PM Comments Question Answer Provider has No, more discussion needed discussed Code Status w/Patient or Family? Care Teams Start Date End Date Laboratory Sampler Relationship Specialty 03/12/18 David Pittman MD PCP - General Family Medicine [address] [place] [id number]
[2023-03-29] MEDS ORDERED: MELATONIN 3 MG TABLET PO PRN (16:15)
[2023-03-29] MEDS ORDERED: ENOXAPARIN 40 MG/0.4 ML (LOVENOX) SYR SC SCH (16:15)
[2023-03-29] MEDS: morphine INJ 4 MG/ML 1 ML (VIAL/SYRINGE) IVP PRN ×4 (16:48→23:36)
[2023-03-29] MEDS: ENOXAPARIN INJECTION 30 MG/0.3 ML SYR SC SCH (16:48)
[2023-03-29] MEDS: NS IV 1000 ML 1,000 ML IV SCH (16:52)
[2023-03-29 17:10] VITALS: BP 162/70
[2023-03-29 19:20] VITALS: BP 168/72
[2023-03-29] MEDS: ONDANSETRON 4 MG/2 ML (SDV) Z0FRAN IV PRN (21:37)
[2023-03-29 23:14] VITALS: BP 145/67
[2023-03-30] VITALS (10 sets, daily range): BP systolic 148–200; BP diastolic 62–90
[2023-03-30] MEDS ORDERED: LIDOCAINE UROJET 2% GEL 10 ML PKG ONE (00:12)
[2023-03-30] MEDS: morphine INJ 4 MG/ML 1 ML (VIAL/SYRINGE) IVP PRN ×11 (01:29→23:58)
[2023-03-30] MEDS: NS IV 1000 ML 1,000 ML IV SCH ×3 (01:29→15:27)
[2023-03-30] MEDS ORDERED: RT-ALBUTEROL SULF 2.5 MG/3 ML PRE-MIX VIAL INH PRN (01:45)
[2023-03-30] MEDS: ONDANSETRON 4 MG/2 ML (SDV) Z0FRAN IV PRN ×3 (03:39→19:48)
[2023-03-30 06:08] LABS: HEMOGLOBIN 12.8 g/dL (11.5-16.0); MEAN PLATELET VOLUME 9.1 fL (9.0-12.2); WHITE BLOOD COUNT 8.5 10^3/uL (4.3-11.0)
[2023-03-30 06:14] LABS: POTASSIUM 2.6 MMOL/L (3.6-5.0)
[2023-03-30 06:15] LABS: CALCIUM 8.8 MG/DL (8.5-10.1)
[2023-03-30 06:19] LABS: CREATININE SERUM 0.89 MG/DL (0.60-1.30)
[2023-03-30] MEDS ORDERED: POTASSIUM CL 10MEQ/50ML IVPB 50 ML IV SCH (08:00)
[2023-03-30] MEDS: PANTOPRAZOLE 40 MG (PROTONIX) VIAL IV SCH (08:04)
--- NOTE | 2023-03-30 08:21 | Progress Note - Surgery ---
KACEY MEDEIROS 03/30/23 0821: Subjective Date Seen by a Provider: March 30, 2023 Time Seen by a Provider: 07:15 Subjective/Events-last exam Pt was seen today with her daughter and two granddaughters at bedside, all were visibly upset and had been crying. The daughter said Kierra was up all night be cause of pain, and was requesting "suicide pills" and all she wanted to do was kill herself because of her pain. Kierra then told me the same and said that the suicide idealization is directly correlated to her pain. She said she knows there is obstruction but she wants her top priority to be pain control. She reports still being obstipated, having fevers and chills "hot and cold waves", pain is isolated still in RUQ, suprapubic region, and her lumbar spine she rates it 10/10 currently with meds. She reports vomiting several times throughout the night, but denies seeing blood. Dysuria also noted, she says its due to her not being able to drink fluids. She denies chest pain, SOB, or dizziness Review of Systems General: Chills, Night Sweats HEENT: No Head Aches, No Visual Changes; Sore Throat (dry) Pulmonary: No Dyspnea, No Cough, No Pleuritic Chest Pain Cardiovascular: No: Chest Pain, Palpitations, Edema Gastrointestinal: Nausea, Vomiting, Abdominal Pain, Constipation Genitourinary: Dysuria, Frequency (decreased) Musculoskeletal: back pain; No: leg pain Neurological: No: Change in speech, Confusion Objective Exam Vital Signs Date Time Temp Pulse Resp B/P (MAP) Pulse Ox O2 Delivery O2 Flow Rate FiO2 03/30/23 08:04 36.9 69 20 179/72 (107) 97 Room Air 03/30/23 07:00 64 03/30/23 03:20 37.0 63 17 188/77 (114) 97 Room Air 03/30/23 01:00 62 03/29/23 23:14 36.8 64 17 145/67 (93) 94 Room Air 03/29/23 20:05 97 Room Air 03/29/23 19:20 37.3 64 17 168/72 (104) 95 Room Air 03/29/23 19:00 63 03/29/23 17:17 63 03/29/23 17:10 36.2 64 17 162/70 (100) 99 Room Air 03/29/23 16:05 99 Room Air 03/29/23 16:02 71 16 151/68 97 Room Air 03/29/23 12:25 36.6 60 16 169/68 (101) 98 Room Air I & O 03/30/23 07:00 Intake Total 0 ml Output Total 1350 ml Balance -1350 ml Capillary Refill : Less Than 3 Seconds General Appearance: No Apparent Distress, Mild Distress, Thin HEENT: PERRL/EOMI; No Moist Mucous Membranes Neck: Non Tender, Supple Respiratory: Lungs Clear, No Respiratory Distress Cardiovascular: Regular Rate, Rhythm, No Murmur Peripheral Pulses: 2+ Dorsalis Pedis (R), 2+ Left Dors-Pedis (L), 2+ Radial Pulses (R), 2+ Radial Pulses (L) Gastrointestinal: distended, guarding (with deep epigastric, and suprapubic palpation); No rebound; tenderness, hernia (none visible) Extremity: No Calf Tenderness, No Pedal Edema Neurologic/Psychiatric: Alert, Oriented x3, Depressed Affect Skin: Warm/Dry, Pallor Results Lab Laboratory Tests 03/29/23 12:42: White Blood Count 10.2, Red Blood Count 3.91, Hemoglobin 12.6, Hematocrit 37, Mean Corpuscular Volume 94, Mean Corpuscular Hemoglobin 32, Mean Corpuscular Hemoglobin Concent 34, Red Cell Distribution Width 12.1, Platelet Count 215, Mean Platelet Volume 8.9L, Immature Granulocyte % (Auto) 1, Neutrophils (%) (Auto) 84H, Lymphocytes (%) (Auto) 9L, Monocytes (%) (Auto) 6, Eosinophils (%) (Auto) 1, Basophils (%) (Auto) 0, Neutrophils # (Auto) 8.5H, Lymphocytes # (Auto) 0.9L, Monocytes # (Auto) 0.6, Eosinophils # (Auto) 0.1, Basophils # (Auto) 0.0, Immature Granulocyte # (Auto) 0.1, Prothrombin Time 13.1, INR Comment 1.0, Activated Partial Thromboplast Time 30, Sodium Level 132L, Potassium Level 2.6L, Chloride Level 91L, Carbon Dioxide Level 28, Anion Gap 13, Blood Urea Nitrogen 20H, Creatinine 0.97, Estimat Glomerular Filtration Rate 57, BUN/Creatinine Ratio 21, Glucose Level 140H, Calcium Level 9.7, Corrected Calcium 9.7, Magnesium Level 1.9, Total Bilirubin 0.4, Aspartate Amino Transf (AST/SGOT) 21, Alanine Aminotransferase (ALT/SGPT) 12, Alkaline Phosphatase 50, Myoglobin 74.7, Troponin I < 0.028, Total Protein 7.2, Albumin 4.0 03/29/23 14:10: Urine Color YELLOW, Urine Clarity SL CLOUDY, Urine pH 7.5, Urine Specific [place] 1.020, Urine Protein TRACEH, Urine Glucose (UA) NEGATIVE, Urine Ketones NEGATIVE, Urine Nitrite NEGATIVE, Urine Bilirubin NEGATIVE, Urine Urobilinogen 0.2, Urine Leukocyte Esterase TRACEH, Urine RBC (Auto) NEGATIVE, Urine RBC NONE, Urine WBC RARE, Urine Squamous Epithelial Cells NONE, Urine Crystals NONE, Urine Bacteria LARGEH, Urine Casts NONE, Urine Mucus NEGATIVE, Urine Culture Indicated YES 03/30/23 05:55: White Blood Count 8.5, Red Blood Count 3.97, Hemoglobin 12.8, Hematocrit 38, Mean Corpuscular Volume 95, Mean Corpuscular Hemoglobin 32, Mean Corpuscular Hemoglobin Concent 34, Red Cell Distribution Width 12.0, Platelet Count 187, Mean Platelet Volume 9.1, Sodium Level 135, Potassium Level 2.6L, Chloride Level 95L, Carbon Dioxide Level 26, Anion Gap 14, Blood Urea Nitrogen 14, Creatinine 0.89, Estimat Glomerular Filtration Rate 63, BUN/Creatinine Ratio 16, Glucose Level 123H, Calcium Level 8.8, Percent Immature Platelet Fraction 1.1 Assessment/Plan Assessment/Plan Assessment/Plan Small bowel obstruction UTI possible right lower lobe aspiration Pain Nausea HTN * Volume resucitation via IVF * Bowel rest * Cont. electrolyte correction/supplementation * prophylactic abx (for UTI and perioperative possibility) * increase strength of pain medicine, keep nausea meds as is. * NGT placement unsuccessful, unable to pass tube down esophagus * waiting for Gastrografin testing * Will hold off on surgical intervention for now, but have discussed the possibility and risks of her being a high risk surgical candidate if cons ervative treatment is insufficient. ELIZABETH FARLEY DO 03/30/23 0124: Subjective Subjective/Events-last exam Patient with pain most of night. Refused to have ng tube attempted to be placed. Up all night. Pain 10/10. No bowel function. For small bowel follow through today. Objective Exam General Appearance: No Apparent Distress; No Mild Distress; Thin HEENT: PERRL/EOMI Neck: Non Tender Respiratory: Chest Non Tender, No Accessory Muscle Use, No Respiratory Distress Cardiovascular: Regular Rate, Rhythm, No JVD Gastrointestinal: soft, distended (minimal); No guarding Extremity: Non Tender, No Calf Tenderness Neurologic/Psychiatric: Alert, Oriented x3, Depressed Affect Skin: Normal Color, Warm/Dry Lymphatic: No Adenopathy Assessment/Plan Assessment/Plan Assessment/Plan Small bowel obstruction UTI possible right lower lobe aspiration Pain Nausea HTN * Volume resucitation via IVF * Bowel rest * Cont. electrolyte correction/supplementation * prophylactic abx (for UTI ) * increase strength of pain medicine, keep nausea meds as is. * NGT placement refused, again asked patient to consider trying again. * waiting for small bowel follow through c Gastrografin * Discussed with patient and family she is higher risk due to comorbidities. WIll continue to try conservative measures, but if not successful may need surgical intervention. They agree with plan. Supervisory-Addendum Brief Verification & Attestation Participated in pt care: history, MDM, physical Personally performed: exam, history, MDM, supervision of care Care discussed with: Medical Student Procedures: n/a Results interpretation: Verified all documentation Verification and Attestation of Medical Student E/M Service A medical student performed and documented this service in my presence. I reviewed and verified all information documented by the medical student and made modifications to such information, when appropriate. I personally performed the physical exam and medical decision making. Elizabeth Farley, March 30, 2023,13:44 KACEY MEDEIROS March 30, 2023 08:21 ELIZABETH FARLEY DO March 30, 2023 13:44
--- NOTE | 2023-03-30 08:48 | Physical Therapy Progress Note ---
Therapy Progress Note PT attempted this a.m., however, patient and family adamantly declined due to patient is fatigued and had just returned to bed from restroom. PT will attempt later today. 1 visit ref ADAM LUKE PT March 30, 2023 08:48
[2023-03-30] MEDS ORDERED: DIATRIZOATE MEGLUM/SODIUM 37% 120 ML (GASTROGRAFIN) PO ONE (09:45)
--- NOTE | 2023-03-30 10:43 | Occ Therapy Progress Note ---
Therapy Progress Note Pt not in room and in radiology for procedure. ELLY PEREZ OT March 30, 2023 10:43
--- NOTE | 2023-03-30 10:53 | Progress Note - Hospitalist ---
Subjective HPI/CC On Admission Date Seen by Provider: March 30, 2023 Pt is an 87yoCF with a PMH of breast cancer, coronary artery disease, failure, GI bleed, small bowel obstruction, bowel resection, hypothyroidism who presented to the emergency department due to chest and back pain along with stomach pain. She reports that it started in the past 24 hours. Her last bowel movement was 2 days ago but she believes she is passing gas this morning. She has a history of a bowel obstruction necessitating bowel resection in the past she was up at for over a week for this. Symptoms are similar to that. She reported her pain is 10 out of [address] revealed a high grade small bowel obstruction. NGT was attempted but unable to be passed and she would not tolerate repeat attempt. Pain is improved with morphine though. Subjective/Events-last exam Pt reports doing ok and about to go to the bathroom. Family outside of room and quite tearful. They state she was hurting quite a bit last night and was actually asking about euthanasia due to the pain. They acknowledge that she is saying contradicting things with this statement but wanting to be a full code. Discussed plan to optimize pain regimen for adequate control so that she is not making decisions in extremis and go from there. Objective Exam Vital Signs Vital Signs Date Time Temp Pulse Resp B/P (MAP) Pulse Ox O2 Delivery O2 Flow Rate FiO2 03/30/23 08:04 36.9 69 20 179/72 (107) 97 Room Air Capillary Refill : Less Than 3 Seconds General Appearance: No Apparent Distress, Chronically ill, Thin Respiratory: Lungs Clear, No Respiratory Distress Cardiovascular: Regular Rate, Rhythm Gastrointestinal: Soft, Abnormal Bowel Sounds (absent); No Distended, No Guarding; Tenderness (diffuse- similar to yesterday) Neurologic/Psychiatric: Alert, Oriented x3 Results/Procedures Lab Laboratory Tests 03/29/23 12:42 03/30/23 05:55 Patient resulted labs reviewed. Imaging: Reviewed Imaging Report Assessment/Plan Assessment and Plan Assess & Plan/Chief Complaint High grade small bowel obstruction h/o bowel resection h/o GI Bleed Keep NPO Continue IV morphine- increase dose Surgery consulted Unable to tolerate NGT placement Hgb stable- monitor Small bowel study today Hypokalemia K 2.6 again replace per protocol Bacteria in urine No evidence of infection Monitor but will hold off on abx for now CAD CHF HTN Follows with Dr Tristan Has been told she has inoperable heart disease with worsening EF Dr Tristan recommended medical management Hold aspirin for now for possible intervention Hypothyroidism GERD Continue home meds as able but NPO so limited Breast cancer On tamoxifen Follows with Dr Lafleur Spoke with Dr Pittman (PCP) on admission and he presumes it is metastatic due to back pain but not mentioned on imaging Advance care planning Discussed code status with her and her daughter on admission they state they have never thought about end of life wishes before but she would like her daughter to be her decision maker if needed At this time she states she would be amenable to life support "if absolutely necessary" but plans to talk further with her daughter about this again today DVT ppx: SCDs Diagnosis/Problems Diagnosis/Problems (1) SBO (small bowel obstruction) Status: Acute (2) Hypokalemia Status: Acute MINERVA MANZO MD March 30, 2023 10:53
[2023-03-30] MEDS: POTASSIUM CL 10MEQ/50ML IVPB 50 ML IV SCH ×9 (11:23→23:56)
--- NOTE | 2023-03-30 12:14 | Occupational Therapy Eval ---
OT Evaluation-General/PLF Medical Diagnosis Admission Date March 29, 2023 at 16:08 Medical Diagnosis: small bowel obstruction Onset Date: March 29, 2023 Therapy Diagnosis Therapy Diagnosis: decr self care, decr activity tolerance, weakness Height/Weight Height (Feet): 5 Height (Inches): 4.00 Weight (Pounds): 128 Precautions Precautions/Isolations: Standard Precautions Referral Physician: Judi Referral Reason: Evaluation/Treatment Medical History Pertinent Medical History: Arthritis, CAD, DM, HTN, Hypothroidism, MS Additional Medical History Cardiomyopathy, stent. Breast CA. Headaches, migraines. Cataract Current History Admitted with chest pain, low back pain. UTI. Small bowel scan today Social History Home: Apartment ([facility]) Current Living Status: Alone Steps Into Home: 0 ADL-Prior Level of Function SCALE: Activities may be completed with or without assistive devices. 5-Hafpdqezyw-kbbximw completes the activity by him/herself with no assistance from a helper. 5-Set-up or Clean-up Assistance-helper sets up or cleans up; patient completes activity. [place] assists only prior to or following the activity. 4-Supervision or Touching Assistance-helper provides verbal cues and/or touching/steadying and/or contact guard assistance as patient completes activity. Assistance may be provided throughout the activity or intermittently. 3-Partial/Moderate Assistance-helper does LESS THAN HALF the effort. [place] lifts, holds or supports trunk or limbs, but provides less than half the effort. 2-Substantial/Maximal Assistance-helper does MORE THAN HALF the effort. [place] lifts or holds trunk or limbs and provides more than half the effort. 2-Dgcjctejh-keymkg does ALL the effort. Patient does none of the effort to complete the activity. Or, the assistance of 2 or more helpers is required for the patient to complete the activity. If activity was not attempted, code reason: 7-Patient Refused. 9-Not Applicable-not attempted and the patient did not perform the activity before the current illness, exacerbation or injury. 10-Not Attempted due to Environmental Limitations-(lack of equipment, weather restraints, etc.). 88-Not Attempted due to Medical Conditions or Safety Concerns. ADL PLOF Comments Pt reported that she has been independent in her own home, including cooking, but she has given up driving and sold her car. Her neighbor checks on her Self Care: Independent Functional Cognition: Independent DME/Equipment: Bath Bench, Shower OT Current Status Subjective Pt seen in room, up in bed, agreeable to OT. No pain reported but she has had recent pain meds Appearance Alert, cooperative Mental Status/Objective Attachments: IV Current Glasses/Contacts: Yes Hearing Aids: No Dentures/Partials: Yes (upper) Upper Extremity ROM Grossly WFL bilat Upper Extremity Strength Grossly 4/5 bilat ADL-Treatment ADL-Current Pt is currently NPO but is confident that she could feed herself if offered. She has been going to the bathroom with some help from the nurses to get up and support to get to and from the bathroom. She calls for help after toileting. Pt declined to get up due to recent pain meds and procedure. Granddaughter present and helped provide some answers Education OT Patient Education: Purpose of tx/functional activities, Rehab process Teaching Recipient: Patient Teaching Methods: Discussion Response to Teaching: Verbalize Understanding OT Longterm Goals Radiologic Technician Goals Time Frame: April 06, 2023 Eating (QC): 6 Oral Hygiene (QC): 6 Toileting Hygiene (QC): 6 Shower/Bathe Self (QC): 5 Upper Body Dressing (QC): 5 Lower Body Dressing (QC): 5 On/Off Footwear (QC): 5 Additional Goals: 1-Demonstrate ADL Tasks, 2-Verbalize Understanding, 3- ImproveStrength/Roxanna 1=Demonstrate adherence to instructed precautions during ADL tasks. 2=Patient will verbalize/demonstrate understanding of assistive devices/modifications for ADL. 3=Patient will improve strength/tolerance for activity to enable patient to perform ADL's. OT Education/Plan Problem List/Assessment Assessment: Decreased Activ Tolerance, Dependent Transfers, Impaired Self-Care Skills Discharge Recommendations Plan Pt would benefit from skilled OT to increase her independence in basic slef care skills to allow her to safely return home alone Plan/Recommendations: Continue POC Treatment Plan/Plan of Care Treatment,Training & Education: Yes Patient would benefit from OT for education, treatment and training to promote independence in ADL's, mobility, safety and/or upper extremity function for ADL's. Plan of Care: ADL Retraining, Functional Mobility, UE Funct Exercise/Act Treatment Duration: April 06, 2023 Frequency: 3 times per week (3-5 times a week) Estimated Hrs Per Day: .25 hour per day Agreement: Yes Rehab Potential: Fair Time Start Time: 11:48 Stop Time: 12:01 DATE: March 30, 2023 Total Time Billed (hr/min): 13 Billed Treatment Time visit, 13 minutes evaluation low intensity ELLY PEREZ OT March 30, 2023 12:14
[2023-03-30] MEDS ORDERED: TORS20TA3 PO (12:53)
[2023-03-30] MEDS ORDERED: CARV6.25 PO (12:53)
[2023-03-30] MEDS ORDERED: ISOS120T9 PO (12:53)
[2023-03-30] MEDS ORDERED: CETI-458 PO (12:53)
[2023-03-30] MEDS ORDERED: PEDI18TA7 PO (12:53)
[2023-03-30] MEDS ORDERED: FENT1PAT9 TD (12:53)
[2023-03-30] MEDS ORDERED: POTA-51 PO (13:01)
--- NOTE | 2023-03-30 14:14 | Physical Therapy Progress Note ---
Therapy Progress Note Attempted to see patient for PT evaluation. Patient refused treatment due to severe pain. Nurse notified. NESTOR LA PT March 30, 2023 14:14
[2023-03-30] MEDS: hydrALAZINE (APESOLINE) 20 MG/ML VIAL IV PRN (16:24)
[2023-03-30] MEDS: ENOXAPARIN INJECTION 30 MG/0.3 ML SYR SC SCH (17:11)
[2023-03-30] MEDS: NITRO DRIP 25000 MCG/D5W 250 ML IV SCH (18:30)
[2023-03-30 23:24] LABS: POTASSIUM 2.8 MMOL/L (3.6-5.0)
[2023-03-30 23:25] LABS: CALCIUM 8.8 MG/DL (8.5-10.1)
[2023-03-30 23:30] LABS: CREATININE SERUM 0.8 MG/DL (0.60-1.30)
[2023-03-31] VITALS (13 sets, daily range): BP systolic 139–181; BP diastolic 65–97
[2023-03-31] MEDS: POTASSIUM CL 10MEQ/50ML IVPB 50 ML IV SCH ×9 (00:58→11:00)
[2023-03-31] MEDS: MAGNESIUM 1 GM/100 ML IVPB 100 ML IV SCH ×5 (00:58→05:36)
[2023-03-31] MEDS: morphine INJ 4 MG/ML 1 ML (VIAL/SYRINGE) IVP PRN ×9 (02:52→21:03)
[2023-03-31 05:12] LABS: HEMATOCRIT 40 % (35-52); HEMOGLOBIN 13.3 g/dL (11.5-16.0); MEAN CORPUSCULAR HEMOGLOBIN 32 pg (25-34); MEAN CORPUSCULAR HGB CONC 33 g/dL (32-36); MEAN CORPUSCULAR VOLUME 95 fL (80-99); MEAN PLATELET VOLUME 9.5 fL (9.0-12.2); PLATELET COUNT 160 10^3/uL (130-400); WHITE BLOOD COUNT 12.3 10^3/uL (4.3-11.0)
[2023-03-31] MEDS: KCL 20 MEQ TAB (K-DUR) PO SCH (05:37)
[2023-03-31 05:39] LABS: CALCIUM 8.9 MG/DL (8.5-10.1); CREATININE SERUM 0.9 MG/DL (0.60-1.30); MAGNESIUM 3.4 MG/DL (1.6-2.4); POTASSIUM 2.7 MMOL/L (3.6-5.0)
[2023-03-31] MEDS: NS IV 1000 ML 1,000 ML IV SCH (06:18)
--- NOTE | 2023-03-31 07:15 | Physical Therapy Progress Note ---
Therapy Progress Note Pt transferred to higher level of care yesterday. Will need new orders when pt is appropriate to begin PT. JOSELIN CARL PT March 31, 2023 07:15
[2023-03-31] MEDS: fentaNYL PATCH 75 MCG (DURAGESIC) TD SCH (09:04)
[2023-03-31] MEDS: PANTOPRAZOLE 40 MG (PROTONIX) VIAL IV SCH ×2 (09:04→21:04)
--- NOTE | 2023-03-31 09:04 | Progress Note - Hospitalist ---
Subjective HPI/CC On Admission Date Seen by Provider: March 31, 2023 Pt is an 87yoCF with a PMH of breast cancer, coronary artery disease, failure, GI bleed, small bowel obstruction, bowel resection, hypothyroidism who presented to the emergency department due to chest and back pain along with stomach pain. She reports that it started in the past 24 hours. Her last bowel movement was 2 days ago but she believes she is passing gas this morning. She has a history of a bowel obstruction necessitating bowel resection in the past she was up at for over a week for this. Symptoms are similar to that. She reported her pain is 10 out of [address] revealed a high grade small bowel obstruction. NGT was attempted but unable to be passed and she would not tolerate repeat attempt. Pain is improved with morphine though. Subjective/Events-last exam Pt reports persistent chest pain and abd pain. Chest pain improved some with nitro gtt but still present. Still adamantly refused an NGT but would consent if she were put to sleep for it. Discussed risks of surgery without decompression and that she may not survive given the state of her heart. She expresses understanding and still states she won't allow us to attempt NGT now. Discussed with surgery about possible placement in endoscopy and he will come evaluate. Objective Exam Vital Signs Vital Signs Date Time Temp Pulse Resp B/P (MAP) Pulse Ox O2 Delivery O2 Flow Rate FiO2 03/31/23 08:00 95 Room Air 03/31/23 08:00 36.5 03/31/23 08:00 72 12 167/85 (111) Capillary Refill : Less Than 3 Seconds General Appearance: No Apparent Distress Respiratory: Lungs Clear Cardiovascular: Regular Rate, Rhythm Gastrointestinal: Distended; No Guarding, No Rebound; Tenderness, Other (absent bowel sounds) Neurologic/Psychiatric: Alert Results/Procedures Lab Laboratory Tests 03/30/23 23:06 03/31/23 04:38 Patient resulted labs reviewed. Imaging: Reviewed Imaging Report Assessment/Plan Assessment and Plan Assess & Plan/Chief Complaint High grade small bowel obstruction h/o bowel resection h/o GI Bleed Keep NPO Continue IV morphine, increase fentanyl patch to 75mcg Surgery consulted, appreciate recs Unable to tolerate NGT placement- would consent if down while asleep Hgb stable- monitor Small bowel study still pending CAD CHF HTN Chest pain Transferred to the ICU on nitro gtt due to chest pain Cardiology consulted, appreciate recs Follows with Dr Tristan Has been told she has inoperable heart disease with worsening EF Dr Tristan recommended medical management Hypokalemia persistent replace per protocol Add to fluids Bacteria in urine No evidence of infection Monitor but will hold off on abx for now Hypothyroidism GERD Continue home meds as able but NPO so limited Breast cancer On tamoxifen Follows with Dr Lafleur Spoke with Dr Pittman (PCP) on admission and he presumes it is metastatic due to back pain but not mentioned on imaging Advance care planning Discussed code status with her and her daughter on admission they state they have never thought about end of life wishes before but she would like her daughter to be her decision maker if needed At this time she states she would be amenable to life support "if absolutely necessary" but no update on this per family DVT ppx: SCDs Diagnosis/Problems Diagnosis/Problems (1) SBO (small bowel obstruction) Status: Acute (2) Hypokalemia Status: Acute MINERVA MANZO MD March 31, 2023 09:04
--- NOTE | 2023-03-31 09:39 | Diagnostic Imaging Report ---
INDICATION: Abdominal distention. FINDINGS: There are multiple dilated loops of small bowel proximally. This is suspect for at least partial small bowel obstruction. At 23 hours there does appear to be a small amount of contrast within the colon. IMPRESSION: Dilated loops of small bowel particularly proximally suspect for partial or early complete small bowel obstruction. Recommend clinical correlation. Dictated by: Dictated on workstation # [id number]
--- NOTE | 2023-03-31 10:05 | Consultation-Cardiology ---
HPI-Cardiology Cardiology Consultation Date of Consultation 03/31/23 Date of Admission Time Seen by Provider: 09:59 Indication: Chest pain HPI 87-year-old lady with history of coronary artery disease, congestive heart failure, history of small bowel obstruction and bowel resection. She was admitted with chest and back pain in addition to abdominal pain, continue to have abdominal pain and nausea and vomiting. Diagnosed with small bowel obstruction Started to have increasing chest pain yesterday, persistent left-sided in addition to severe hypertension. Patient was transferred to ICU and started on nitroglycerin drip Still having active chest pain, had mild elevation in troponin. Home Medications & Allergies Allergies: Coded Allergies: Penicillins (Unverified Allergy, Unknown, 03/30/23) carbamazepine (Verified Allergy, Unknown, 03/29/23) cyproheptadine (Verified Allergy, Unknown, 03/29/23) esomeprazole (Verified Allergy, Unknown, 03/29/23) indomethacin (Verified Allergy, Unknown, 03/29/23) lorazepam (Verified Allergy, Unknown, 03/29/23) CONFUSION, INABLITY TO MAKE SENTENCES simvastatin (Verified Allergy, Unknown, 03/29/23) Home Medication List Reviewed: Yes VVC-Oaeblk-Acjiep Hx Patient Social History Marital Status: single Employed/Student: retired Smoking Status: Never a Smoker 2nd Hand Smoke Exposure: No Recent Hopitalizations: No (DEC 2018-) Have you traveled recently?: No Alcohol Use?: No Immunizations Up To Date Date of Pneumonia Vaccine: Aug 11, 2019 Date of Influenza Vaccine: Aug 12, 2020 Past Medical History Discussed below Family Medical History Significant Family History: No Pertinent Family Hx Review of Systems-General Review of Systems Constitutional: No chills, No diaphoresis, No fever EENTM: No blurred vision, No double vision Respiratory: cough (confirmed she did have some coughing earlier); No dyspnea on exertion Cardiovascular: see HPI, chest pain; No edema; Hx of Intervention; No palpitations Gastrointestinal: abdominal pain, nausea, vomiting Genitourinary: No decreased output, No discharge Musculoskeletal: back pain (Lumbar), joint pain; No muscle pain Skin: No change in color, No change in hair/nails Psychiatric/Neurological: Denies Anxiety, Denies Depressed, Denies Emotional Problems All Other Systems Reviewed Negative Unless Noted: Yes (Negative excepted noted.) Reviewed Test Results Reviewed Test Results Lab Laboratory Tests Test 5/19/23 16:35 03/30/23 23:06 03/31/23 04:38 03/31/23 09:53 Range/Units Troponin I 0.039 H <0.028 NG/ML Sodium Level 139 136 135-145 MMOL/L Potassium Level 2.8 L 2.7 L 3.6-5.0 MMOL/L Chloride Level 102 101 98-107 MMOL/L Carbon Dioxide Level 21 22 21-32 MMOL/L Anion Gap 16 H 13 5-14 MMOL/L Blood Urea Nitrogen 13 13 7-18 MG/DL Creatinine 0.80 0.90 0.60-1.30 MG/DL Estimat Glomerular Filtration Rate 72 63 BUN/Creatinine Ratio 16 14 Glucose Level 125 H 181 H 70-105 MG/DL Calcium Level 8.8 8.9 8.5-10.1 MG/DL Magnesium Level 1.7 3.4 H 1.6-2.4 MG/DL White Blood Count 12.3 H 4.3-11.0 10^3/uL Red Blood Count 4.17 3.80-5.11 10^6/uL Hemoglobin 13.3 11.5-16.0 g/dL Hematocrit 40 35-52 % Mean Corpuscular Volume 95 80-99 fL Mean Corpuscular Hemoglobin 32 25-34 pg Mean Corpuscular Hemoglobin Concent 33 32-36 g/dL Red Cell Distribution Width 12.4 10.0-14.5 % Platelet Count 160 130-400 10^3/uL Mean Platelet Volume 9.5 9.0-12.2 fL Physical Exam Physical Exam Vital Signs Vital Signs - First Documented 03/29/23 12:25 Temp 36.6 Pulse 60 Resp 16 B/P (MAP) 169/68 (101) Pulse Ox 98 O2 Delivery Room Air Capillary Refill : Less Than 3 Seconds Height, Weight, BMI Height: 5'4.00" Weight: 128lbs. oz. 58.025262yg; 18.81 BMI Method:Stated General Appearance: No Apparent Distress HEENT: PERRL/EOMI Neck: Non Tender Respiratory: Lungs Clear Cardiovascular: Regular Rate, Rhythm Gastrointestinal: Distended; No Guarding, No Rebound; Tenderness, Other (absent bowel sounds) Extremity: Non Tender, No Calf Tenderness Neurologic/Psychiatric: Alert Skin: Normal Color, Warm/Dry Lymphatic: No Adenopathy A/P-Cardiology Admission Diagnosis Unstable angina Non-ST elevation myocardial infarction Congestive heart failure, chronic compensated left ventricular systolic dysfunction, ischemic cardiomyopathy Small bowel obstruction Assessment/Plan Unstable angina, non-ST elevation myocardial infarction Minimal elevation in troponin, conservative management is recommended Coronary artery disease, Cardiac catheterization done by Dr. Livingston in 2007 showing mild diffuse coronary artery disease nonobstructive disease Has been following with Dr. Tristan, had stress test done recently and it was significantly abnormal according to the family and the patient and Dr. Tristan elected conservative management due to her high risk. Currently having chest pain and mild elevation in troponin, conservative management is recommended Continue nitroglycerin drip Cannot tolerate aggressive anticoagulation Congestive heart failure, patient is reporting having severe cardiomyopathy. Currently compensated, I will evaluate 2D echo High-grade small bowel obstruction, history of bowel obstruction in the past. Managed by Dr. Marshall and medical team History of GI bleed, was unable to tolerate oral anticoagulation in the past Hypertensive emergency, severe hypertension, started on nitroglycerin drip I will add Lopressor IV and monitor tolerance and response Hypothyroidism, managed by primary care physician Gastroesophageal reflux disease Preoperative cardiac evaluation Patient may require abdominal surgery, she is considered at high risk for perioperative cardiovascular complication, unable to tolerate any intervention at this time Decision regarding the surgery, risk versus benefit is deferred to the surgeon I had a long discussion with the patient and her daughter, they are considering DNR JAROD BARNEY MD March 31, 2023 10:05
[2023-03-31 10:11] LABS: POTASSIUM 3.2 MMOL/L (3.6-5.0)
[2023-03-31] MEDS: 1/2 NS W/KCL 20 MEQ/L 1,000 ML IV SCH ×3 (10:15→22:36)
[2023-03-31 10:17] LABS: CREATININE SERUM 0.84 MG/DL (0.60-1.30)
--- NOTE | 2023-03-31 10:21 | Tele-ICU Consult ---
History of Present Illness History of Present Illness Date Seen by Provider: March 31, 2023 Time Seen by Provider: 10:17 Date of Admission Reason for Visit: Chest pain History of Present Illness (Tele-ICU Physician , consultation as per request of PCP Service provided via interactive audio and video telecommunFlyCleaners E-CARE system to a patient admitted to ICU bed in [facility]. Available chart/ vitals / labs / Images reviewed H&P is from ER notes Patient's information available about PMH, Shx, Fhx allergy reviewed inEMR. ROS as per chart and RN report Now in ICU, hemodynamically stable Video assessment done using teleICU camera, rest of exam as per RN Discussed with RN. Hospital course: (03/29) 87 y/o F - Chest Pain/Back Pain - UTI - CT = High Grade Bowel Obstruction - ^Trop (03/30) To ICU - ^Trop - Cardiology consult - Hypertension 03/31- NTG gtt , still no NG , pain not controlled - IV morphine, fentanyl patch to 75mcg A/P High grade small bowel obstruction - pain control with IV morphine, increase fentanyl patch to 75mcg- still not well controlled -Surgery follow - NG placement pending CAD, chest pain - NTG gtt - as per cards - conservative management now RLL small infiltrate - ? PNA - monitor , might need abx Hypokalemia - replace Breast cancer - tamoxifen - as per notes, presumes it is metastatic due to back pain but not mentioned on imaging Advance care planning - ongoing discussion Lines : periph , (Central Line Necessity Reviewed) Aleman: external OG: Nutrition: npo Analgesia: Anxiety/ delirium VTE Prophylaxis: annemarie Stress Ulcer Prophylaxis: ppi Glycemic Control: q 6 h Plans in collaboration with bedside consultants and IM MDs.- discussed with Dr Lau Discussed with RN to reach out if any questions or concerns A total of 20 minutes of critical care time was devoted to this patient today, required to treat and/or prevent further deterioration of critical care condition ( as above ) . I am remotely monitoring this patient from another state. I am unable to do the bedside exam, and history/physical and pertinent information is taken from other notes in the computer and bedside staff. . Allergies and Home Medications Allergies Coded Allergies: Penicillins (Unverified Allergy, Unknown, 03/30/23) carbamazepine (Verified Allergy, Unknown, 03/29/23) cyproheptadine (Verified Allergy, Unknown, 03/29/23) esomeprazole (Verified Allergy, Unknown, 03/29/23) indomethacin (Verified Allergy, Unknown, 03/29/23) lorazepam (Verified Allergy, Unknown, 03/29/23) CONFUSION, INABLITY TO MAKE SENTENCES simvastatin (Verified Allergy, Unknown, 03/29/23) Home Medications Aspirin 81 Mg Tablet.dr, 81 MG PO DAILY, (Reported) Carvedilol 6.25 Mg Tablet, 6.25 MG PO BID, (Reported) Cetirizine HCl 10 Mg Tablet, 10 MG PO DAILY, (Reported) Cyanocobalamin 1,000 Mcg/Ml Inj, 1 ML IM MONTHLY, (Reported) Fentanyl 50 Mcg/Hour Patch.td72, 50 MCG TD Q72H, (Reported) Furosemide 20 Mg Tablet, 20 MG PO DAILY PRN for FLUID RETENTION, (Reported) USES FIRST FOR RETENTION Hydrocodone/Acetaminophen 1 Each Tablet, 1 EA PO Q6H PRN for PAIN-MODERATE (5- 7), (Reported) Isosorbide Mononitrate 120 Mg Tab.er.24h, 120 MG PO DAILY, (Reported) Lactobacillus Rhamnosus GG 1 Each Capsule, 1 EACH PO DAILY, (Reported) Levothyroxine Sodium 100 Mcg Tablet, 50 MCG PO DAILY, (Reported) TAKES OF A 100MCG Magnesium Oxide 250 Mg Tablet, 250 MG PO DAILY, (Reported) Melatonin 10 Mg Tablet, 10 MG PO HS, (Reported) Nitroglycerin 0.4 Mg Tab.subl, 0.4 MG SL UD PRN for CHEST PAIN, (Reported) Pantoprazole Sodium 40 Mg Tablet.dr, 40 MG PO BID, (Reported) Pediatric Multivit No.203/Iron 18 Mg Iron Tab.chew, 18 MG PO DAILY, (Reported) Potassium Chloride 20 Meq Tab.er.prt, 40 MEQ PO HS, (Reported) TAKES 2 (20MEQ) TABS Potassium Chloride 20 Meq Tablet.er, 60 MEQ PO DAILY, (Reported) TAKES 3 (20MEQ) TABS Tamoxifen Citrate 20 Mg Tablet, 20 MG PO DAILY, (Reported) Topiramate 50 Mg Tablet, 150 MG PO HS, (Reported) TAKES 3 (50MG) TABS Torsemide 20 Mg Tablet, 20 MG PO DAILY PRN for FLUID RETENTION, (Reported) ONLY USES IF FUROSEMIDE IF NOT EFFECTIVE Past Medical/Social/Family Hx Patient Social History Marrital Status: single Employed/Student: retired Tobacco Use?: No Smoking Status: Never a Smoker Smokeless Tobacco Frequency: Never a User Use of E-Cig and/or Vaping dev: No Substance use?: No Alcohol Use?: No Pt stated abuse/neglect: No Immunizations Up To Date Influenza Vaccine Up-to-Date: Yes; Up-to-Date First/Initial COVID19 Vaccinat: 2020 Second COVID19 Vaccination Tobi: 2020 Date of Pneumonia Vaccine: Aug 11, 2019 Current Status Advance Directives: No Communicates: Verbally Primary Language: Greek Preferred Spoken Language: Greek Is interpretation needed?: No Sensory deficits: Vision impairment Implanted or Applied Medical D: None Review of Systems Constitutional: see HPI Focused Exam Height, Weight, BMI Height: 5'4.00" Weight: 128lbs. oz. 58.802359he; 18.81 BMI Method:Stated Exam Exam Patient acknowledged, consented, and participated in this virtual visit which was conducted using real time audio/video Vital Signs Date Time Temp Pulse Resp B/P (MAP) Pulse Ox O2 Delivery O2 Flow Rate FiO2 03/31/23 09:00 73 20 169/88 (119) 95 Room Air 03/31/23 08:00 72 12 167/85 (111) 93 Room Air 03/31/23 08:00 95 Room Air 03/31/23 08:00 36.5 03/31/23 08:00 72 12 167/85 (111) 93 Room Air 03/31/23 07:00 72 03/31/23 07:00 92 29 163/109 (127) 93 Room Air 03/31/23 07:00 92 29 163/109 (127) 93 Room Air 03/31/23 06:00 74 15 163/78 (106) 95 Room Air 03/31/23 05:00 72 15 166/82 (110) 95 Room Air 03/31/23 04:00 75 11 172/87 (115) 94 Room Air 03/31/23 03:00 90 23 173/77 (109) 94 Room Air 03/31/23 02:00 74 14 173/87 (115) 94 Room Air 03/31/23 01:00 71 14 181/84 (116) 94 Room Air 03/31/23 01:00 72 03/31/23 00:00 82 16 170/79 (109) 93 Room Air 03/30/23 23:00 90 16 163/80 (107) 92 Room Air 03/30/23 22:00 82 16 164/87 (112) 92 Room Air 03/30/23 21:00 80 13 166/78 (107) 92 Room Air 03/30/23 20:00 93 Room Air 03/30/23 19:41 37.3 80 18 193/84 (120) Room Air 03/30/23 19:29 36.3 03/30/23 19:00 80 03/30/23 19:00 80 14 198/90 (126) 93 Room Air 03/30/23 18:39 Room Air 03/30/23 18:30 81 190/86 03/30/23 17:16 85 200/83 (122) Room Air 03/30/23 16:20 36.7 76 22 191/86 (121) 96 Room Air 03/30/23 12:23 64 03/30/23 11:58 37.0 62 18 148/62 (90) 96 Room Air I & O 03/31/23 07:00 Intake Total 700 ml Output Total 300 ml Balance 400 ml Height & Weight Height: 5'4.00" Weight: 128lbs. oz. 58.766763ro; 18.81 BMI Method:Stated General Appearance: No Apparent Distress, Other HEENT: PERRL/EOMI Neck: Non Tender Respiratory: Lungs Clear Cardiovascular: Regular Rate, Rhythm Capillary Refill: Less Than 3 Seconds Peripheral Pulses: 2+ Dorsalis Pedis (R), 2+ Left Dors-Pedis (L), 2+ Radial Pulses (R), 2+ Radial Pulses (L) Gastrointestinal: soft, distended (minimal); No guarding Extremity: Non Tender, No Calf Tenderness Neurologic/Psychiatric: Alert Skin: Normal Color, Warm/Dry Lymphatic: No Adenopathy Results Lab Laboratory Tests 03/29/23 12:42 03/30/23 05:55 03/30/23 23:06 03/31/23 04:38 03/31/23 09:53 Assessment/Plan Assessment/Plan 1 ASHWIN BENNETT MD March 31, 2023 10:21
[2023-03-31] MEDS ORDERED: ONDANSETRON 4 MG/2 ML (SDV) Z0FRAN ONE (12:27)
[2023-03-31] MEDS ORDERED: SUCCINYLCHOLINE INJ 20 MG/1 ML 10 ML VIAL ONE (12:27)
[2023-03-31] MEDS ORDERED: ETOMIDATE IV SOLN 20 MG/10 ML VIAL ONE (12:27)
[2023-03-31] MEDS ORDERED: LIDOCAINE PF 1% 5 ML (XYLOCAINE) AMP ONE (12:28)
[2023-03-31] MEDS ORDERED: fentaNYL INJ 100 MCG/2 ML AMP ONE (12:28)
[2023-03-31] MEDS ORDERED: LACTATED RINGERS 1,000 ML IV ONE (12:39)
--- NOTE | 2023-03-31 12:41 | Progress Note-Pre Operative ---
Pre-Operative Progress Note Date of Available H&P: March 31, 2023 Date H&P Reviewed: March 31, 2023 Time H&P Reviewed: 11:00 History & Physical: No changes noted Pre-Operative Diagnosis: SBO with nausea and vomiting KIRBY DUNAWAY MD March 31, 2023 12:41
[2023-03-31] MEDS ORDERED: LIDOCAINE JELLY 2% 6 ML SYRINGE ONE (12:45)
[2023-03-31] MEDS ORDERED: PHENYLEPHRINE INJ 10 MG/ML (FOR PYXIS KITS ONLY) ONE (13:58)
[2023-03-31] MEDS ORDERED: PHENYLEPHRINE 100 MCG/ML 10 ML (ANESTHESIA) SYR ONE (13:58)
[2023-03-31] MEDS ORDERED: morphine INJ 10 MG/ML 1ML (SYR OR VIAL) IVP ONE (14:45)
[2023-03-31] MEDS ORDERED: ONDANSETRON 4 MG/2 ML (SDV) Z0FRAN IVP PRN (14:45)
--- NOTE | 2023-03-31 14:47 | Anesthesia-General Post-Op ---
General Patient Condition Mental Status/LOC: Same as Preop Cardiovascular: Satisfactory Nausea/Vomiting: Absent Respiratory: Satisfactory Pain: Controlled Complications: Absent Post Op Complications Complications None Follow Up Care/Instructions Patient Instructions None needed. Anesthesia/Patient Condition Patient Condition Patient is awake in ICU and doing well. She does C/O some abdominal pain which is to be expected and no worse than preop, stable vital signs, no apparent adverse anesthesia problems. No complications reported per nursing. JEFF AUGUSTIN DO March 31, 2023 14:47
[2023-03-31] MEDS ORDERED: LACTATED RINGERS 1,000 ML IV STA (14:52)
[2023-03-31] MEDS ORDERED: LIDOCAINE JELLY 2% 6 ML SYRINGE MM PRN (15:00)
--- NOTE | 2023-03-31 15:06 | Progress Note-Post Operative ---
Post-Operative Progess Note Surgeon (s)/Operations Lieutenant (s) Surgeon KIRBY DUNAWAY MD Operations Lieutenant: none Pre-Operative Diagnosis SBO with nausea and vomiting Post-Operative Diagnosis gastric restictie procedure with large gastric pouch x2, severe gastritis Procedure & Operative Findings Date of Procedure 03/31/23 Procedure Performed/Findings EGD with bx and directed placement of ngt into pedro limb pouch. Anesthesia Type get Estimated Blood Loss Estimated blood loss (mL): minimal Specimens/Packing Specimens Removed antrum KIRBY DUNAWAY MD March 31, 2023 15:06
[2023-03-31] MEDS: CHLORASEPTIC SPRAY 177 ML LIQUID MC PRN (16:06)
[2023-03-31] MEDS: hydrALAZINE (APESOLINE) 20 MG/ML VIAL IV PRN (16:57)
[2023-03-31 17:13] LABS: POTASSIUM 3.8 MMOL/L (3.6-5.0)
[2023-03-31 17:14] LABS: CALCIUM 9.1 MG/DL (8.5-10.1)
[2023-03-31 17:19] LABS: CREATININE SERUM 0.85 MG/DL (0.60-1.30)
[2023-03-31] MEDS: ENOXAPARIN INJECTION 30 MG/0.3 ML SYR SC SCH (18:04)
[2023-03-31] MEDS: NITRO DRIP 25000 MCG/D5W 250 ML IV SCH (18:05)
--- NOTE | 2023-03-31 19:43 | OPERATIVE REPORT ---
DATE OF SERVICE: 03/31/2023 ATTENDING PRIMARY CARE PHYSICIAN: Dr. David Pittman. ADMITTING PHYSICIAN: Dr. Lau. PREOPERATIVE DIAGNOSIS: Small-bowel obstruction with previous history of bariatric surgical procedure. POSTOPERATIVE DIAGNOSES: Two portions of the stomach divided by a septum and intact Alvin limb, which encompassed what appears to be the greater curvature of the antrum. Severe gastritis, 1800 mililiters of fluid as well as retained food substance within the gastric pouch. PROCEDURE: EGD with biopsy and guided placement of nasogastric tube into the Alvin limb of the small bowel. SURGEON: Kirby Dunaway MD ANESTHESIA: General endotracheal. ESTIMATED BLOOD LOSS: Minimal. FINDINGS: Two portions of the stomach divided by a septum and intact Alvin limb, which encompassed what appears to be the greater curvature in the antrum. Severe gastritis, 1800 mililiters of fluid as well as retained food substance within the gastric pouch. DISPOSITION: The patient tolerated the procedure well. INDICATIONS: The patient is an 87-year-old female who presented with abdominal distention as well as crampy abdominal pain and nausea and vomiting. She underwent diagnostic imaging, which was consistent with a small-bowel obstruction. The patient is in a very poor condition with multiple medical comorbidities with the most limiting factor being severe congestive heart failure and at this time is not a candidate for surgical therapy. The patient does have signs and symptoms of small-bowel obstruction and states that multiple attempts were made to place a nasogastric tube; however, due to the previous bariatric surgical procedure this has been extremely difficult. DESCRIPTION OF PROCEDURE: The patient was brought to the endoscopy suite and laid in the supine on her bed. After adequate IV pain and sedative medications and general endotracheal intubation, the mouthpiece was applied. The endoscope was placed in the mouth, visualizing the pharynx and hypopharyngeal region. Vocal cords, epiglottis and vallecula identified and appeared to be normal. The endoscope was then gently intubated in the esophageal opening and esophagus insufflated. The endoscope was then advanced into the first, second, third portions of esophagus at the level of GE junction. Reflux esophagitis, Dennison grade B identified. No ulcers or strictures. The endoscope was then advanced into a small gastric pouch with two open ends with one opening appearing to be a stapled portion of the stomach. There was a significant amount of fluid and undigested food within this pouch, which was suctioned out. The endoscope was then withdrawn and advanced through the other opening, which appeared to be the lesser curvature of the stomach and the antrum, which was patent. There was a significant amount of fluid and undigested food material here as well. This was suctioned as well as possible. Due to the anatomy as well as the previous history of surgeries done in this region in the past, this appears to be a post surgical Matthew shunt. A biopsy was taken of thestomach, antrum with forceps with visualization of good hemostasis. We then proceeded with a guided placement of the nasogastric tube into the Alvin limb of the Matthew shunt. The nasogastric tube was then taped securely. The endoscope was then slowly withdrawn while taking a second look and suctioning of residual air with no additional findings. The patient tolerated the procedure well. We will continue with NG tube decompression as well as continued bowel rest and IV fluids in hopes of allowing the small-bowel obstruction to resolve on its own without any surgical therapy. Job ID: [id number] DocumentID: [id number] Dictated Date: 03/31/2023 14:01:34 Coding Clerks Supervisor Date: 03/31/2023 19:40:00 Dictated By: KIRBY DUNAWAY MD MTDD
[2023-04-01] MEDS ORDERED: morphine INJ 10 MG/ML 1ML (SYR OR VIAL) IVP STA (01:46)
--- NOTE | 2023-04-01 01:46 | Tele-ICU Progress Note ---
Subjective Date Seen by a Provider: April 01, 2023 Time Seen by a Provider: 01:42 Subjective/Events-last exam called by RN for pain, had NGT placed in IR due to dffficulty placing, also UO has been low and BP marginal at 93/48, Will give 2 mg IV morphine for pain and give normal saline IV over 30 min, 500 mL Bassam Hardin MD Sepsis Event Evaluation Height, Weight, BMI Height: 5'4.00" Weight: 128lbs. oz. 58.857742bg; 18.81 BMI Method:Stated Exam Exam Patient acknowledged, consented, and participated in this virtual visit which was conducted using real time audio/video Vital Signs Date Time Temp Pulse Resp B/P (MAP) Pulse Ox O2 Delivery O2 Flow Rate FiO2 04/01/23 01:00 111 04/01/23 00:48 36.7 04/01/23 00:00 94 Room Air 03/31/23 22:00 120 16 92/48 (63) 95 Nasal Cannula 3.00 03/31/23 21:00 126 17 91/63 (72) 95 Nasal Cannula 3.00 03/31/23 20:36 Room Air 03/31/23 20:06 37.2 03/31/23 20:00 93 Room Air 03/31/23 20:00 120 15 105/52 (69) 95 Nasal Cannula 3.00 03/31/23 19:00 116 14 105/48 (67) 95 Nasal Cannula 3.00 03/31/23 19:00 Nasal Cannula 3.00 03/31/23 19:00 116 03/31/23 18:05 113 182/68 03/31/23 18:00 129 22 156/64 (93) 92 Room Air 03/31/23 17:00 113 23 182/68 (101) 93 Room Air 03/31/23 16:00 99 24 169/89 (116) 92 Room Air 03/31/23 16:00 95 Room Air 03/31/23 16:00 35.9 03/31/23 15:00 Nasal Cannula 2.00 03/31/23 15:00 96 21 139/97 (107) 91 Room Air 03/31/23 15:00 36.1 21 139/97 (111) 91 Nasal Cannula 2.00 03/31/23 14:50 90 16 148/67 (102) 90 03/31/23 14:50 17 148/67 (94) 95 OxyMask 10.00 03/31/23 14:45 OxyMask 10.00 03/31/23 14:40 90 16 153/67 (97) 94 03/31/23 14:40 14 153/67 (95) 94 OxyMask 10.00 03/31/23 14:30 OxyMask 10.00 03/31/23 14:30 90 139/65 (97) 91 Room Air 03/31/23 14:30 15 139/65 (89) 94 OxyMask 10.00 03/31/23 14:20 23 163/72 (102) 95 OxyMask 10.00 03/31/23 14:20 92 14 163/72 (101) 95 Room Air 03/31/23 14:17 89 166/79 (97) 95 Room Air 03/31/23 14:13 OxyMask 10.00 03/31/23 14:13 36.3 16 166/79 (108) 95 OxyMask 10.00 03/31/23 12:40 79 03/31/23 12:00 95 Room Air 03/31/23 12:00 73 15 163/85 (115) 93 Room Air 03/31/23 12:00 36.6 03/31/23 11:00 80 21 177/88 (111) 94 Room Air 03/31/23 10:00 89 16 154/121 (129) 95 Room Air 03/31/23 09:00 73 20 169/88 (119) 95 Room Air 03/31/23 08:00 72 12 167/85 (111) 93 Room Air 03/31/23 08:00 95 Room Air 03/31/23 08:00 36.5 03/31/23 08:00 72 12 167/85 (111) 93 Room Air 03/31/23 07:00 72 03/31/23 07:00 92 29 163/109 (127) 93 Room Air 03/31/23 07:00 92 29 163/109 (127) 93 Room Air 03/31/23 06:00 74 15 163/78 (106) 95 Room Air 03/31/23 05:00 72 15 166/82 (110) 95 Room Air 03/31/23 04:00 75 11 172/87 (115) 94 Room Air 03/31/23 03:00 90 23 173/77 (109) 94 Room Air 03/31/23 02:00 74 14 173/87 (115) 94 Room Air I & O 04/01/23 07:00 Intake Total 2100 ml Output Total 475 ml Balance 1625 ml Height & Weight Height: 5'4.00" Weight: 128lbs. oz. 58.367457vi; 18.81 BMI Method:Stated General Appearance: No Apparent Distress, Other HEENT: PERRL/EOMI Neck: Non Tender Respiratory: Lungs Clear Cardiovascular: Regular Rate, Rhythm Capillary Refill: Less Than 3 Seconds Peripheral Pulses: 2+ Dorsalis Pedis (R), 2+ Left Dors-Pedis (L), 2+ Radial Pu lses (R), 2+ Radial Pulses (L) Gastrointestinal: soft, distended (minimal); No guarding Extremity: Non Tender, No Calf Tenderness Neurologic/Psychiatric: Alert Skin: Normal Color, Warm/Dry Lymphatic: No Adenopathy Results Lab Laboratory Tests 03/30/23 05:55 03/30/23 23:06 03/31/23 04:38 03/31/23 09:53 03/31/23 16:54 Assessment/Plan Assessment/Plan oliguria, abd pain Critical Care: Critically Ill Patient Time spent with patient (mins): YOVANI ROBERTS MD April 01, 2023 01:46
[2023-04-01] MEDS ORDERED: NS IV 500 ML 500 ML IV SCH (02:00)
[2023-04-01] MEDS: morphine INJ 4 MG/ML 1 ML (VIAL/SYRINGE) IVP PRN ×2 (02:12→09:37)
[2023-04-01 04:46] LABS: HEMATOCRIT 35 % (35-52); HEMOGLOBIN 11.5 g/dL (11.5-16.0); MEAN CORPUSCULAR HEMOGLOBIN 32 pg (25-34); MEAN CORPUSCULAR HGB CONC 33 g/dL (32-36); MEAN CORPUSCULAR VOLUME 97 fL (80-99); MEAN PLATELET VOLUME 9.5 fL (9.0-12.2); PLATELET COUNT 159 10^3/uL (130-400); WHITE BLOOD COUNT 10.4 10^3/uL (4.3-11.0)
[2023-04-01 05:07] LABS: POTASSIUM 3.4 MMOL/L (3.6-5.0)
[2023-04-01 05:08] LABS: CALCIUM 8.2 MG/DL (8.5-10.1)
[2023-04-01 05:12] LABS: CREATININE SERUM 1.27 MG/DL (0.60-1.30)
[2023-04-01 05:15] LABS: MAGNESIUM 2.4 MG/DL (1.6-2.4)
[2023-04-01] MEDS: MAGNESIUM 1 GM/100 ML IVPB 100 ML IV SCH (05:35)
[2023-04-01] MEDS: KCL 20 MEQ TAB (K-DUR) PO SCH (05:35)
[2023-04-01] MEDS: POTASSIUM CL 10MEQ/50ML IVPB 50 ML IV SCH ×5 (05:35→09:32)
[2023-04-01] MEDS ORDERED: POTASSIUM CL 10MEQ/50ML IVPB 200 ML IV ONE (05:41)
[2023-04-01] MEDS: 1/2 NS W/KCL 20 MEQ/L 1,000 ML IV SCH (08:07)
[2023-04-01] MEDS: PANTOPRAZOLE 40 MG (PROTONIX) VIAL IV SCH ×2 (08:07→20:36)
--- NOTE | 2023-04-01 09:05 | Cardiology Progress Note ---
Subjective Date Seen by Provider: April 01, 2023 Time Seen by Provider: 09:02 Subjective/Events-last exam Patient was seen at bedside, laying down comfortably Feeling significantly better. Review of Systems General: No Chills, No Night Sweats, No Fatigue, No Malaise, No Appetite, No Other HEENT: No Head Aches, No Visual Changes, No Eye Pain, No Ear Pain, No Dysphasia, No Sinus Congestion, No Post Nasal Drip, No Sore Throat, No Other Pulmonary: No Dyspnea, No Cough, No Pleuritic Chest Pain, No Other Cardiovascular: No: Chest Pain, Palpitations, Orthopnea, Paroxysmal Noc. Dyspnea, Edema, Lt Headedness, Other Objective-Cardiology Exam Last Set of Vital Signs Vital Signs 04/01/23 04/01/23 04/01/23 08:00 08:51 08:55 Temp 36.7 Pulse 81 Resp 20 B/P (MAP) 109/48 (76) Pulse Ox 96 O2 Delivery Room Air O2 Flow Rate 0.00 I&O Intake and Output 04/01/23 00:00 Intake Total 2500 ml Output Total 475 ml Balance 2024 ml Intake Oral 0 ml IV Total 2500 ml Output Urine Total 475 ml # Voids 4 General: Alert, Oriented X3, Cooperative HEENT: Atraumatic, PERRLA Neck: Supple, No JVD, No Thyromegaly Lungs: Clear to Auscultation, Normal Air Movement Heart: Regular Rate, Normal S1, Normal S2, No Murmurs Abdomen: Normal Bowel Sounds, Soft, No Tenderness, No Hepatosplenomegaly, No Masses Extremities: No Clubbing, No Cyanosis, No Edema, Normal Pulses, No Tenderness/Swelling Skin: No Rashes, No Breakdown, No Significant Lesion Neuro: Normal Gait, Normal Speech, Strength at 5/5 X4 Ext, Normal Tone, Sensation Intact Psych/Mental Status: Mental Status NL, Mood NL Results Lab Laboratory Tests 03/31/23 09:53 03/31/23 16:54 04/01/23 04:10 A/P-Cardiology Admission Diagnosis Unstable angina Non-ST elevation myocardial infarction Congestive heart failure, chronic compensated left ventricular systolic dysfunction, ischemic cardiomyopathy Small bowel obstruction Assessment/Plan Unstable angina, non-ST elevation myocardial infarction Reporting improvement in her chest pain, no further episodes of chest pain. Minimal elevation in troponin, conservative management is recommended Coronary artery disease, Cardiac catheterization done by Dr. Livingston in 2007 showing mild diffuse coronary artery disease nonobstructive disease Has been following with Dr. Tristan, had stress test done recently and it was significantly abnormal according to the family and the patient and Dr. Tristan elected conservative management due to her high risk. Currently having chest pain and mild elevation in troponin, conservative management is recommended Continue nitroglycerin drip Cannot tolerate aggressive anticoagulation Congestive heart failure, patient is reporting having severe cardiomyopathy. Currently compensated High-grade small bowel obstruction, history of bowel obstruction in the past. Has an NG tube, feeling significantly better. Managed by Dr. Marshall and medical team History of GI bleed, was unable to tolerate oral anticoagulation in the past Hypertensive emergency, severe hypertension, started on nitroglycerin drip I will wean her off nitroglycerin drip Will use metoprolol IV Hypothyroidism, managed by primary care physician Gastroesophageal reflux disease Preoperative cardiac evaluation Patient may require abdominal surgery, she is considered at high risk for perioperative cardiovascular complication, unable to tolerate any intervention at this time Decision regarding the surgery, risk versus benefit is deferred to the surgeon I had a long discussion with the patient and her daughter, they are considering DNR JAROD BARNEY MD April 01, 2023 09:05
--- NOTE | 2023-04-01 09:06 | Tele-ICU Progress Note ---
Progress Note video rounds completed 87 y/o female with a hx of RNY GBP who was admitted with s/s of a SBO Has NGT in place draining bile. CT shows dilated small bowel, gastric pouch and duodenum suggesting obstruction near jejunojenostomy. Currently DNR Surgery is following IMP; SBO PLAN: as per surgery's recommendations I am remotely monitoring this patient from another state. I am unable to do the bedside exam, and history/physical and pertinent information is taken from other notes in the computer and bedside staff. Time spent in aval and review of xrays 35 min Focused Exam Height, Weight, BMI Height: 5'4.00" Weight: 128lbs. oz. 58.568618sg; 18.81 BMI Method:Stated Labs Laboratory Tests 03/31/23 09:53 03/31/23 16:54 04/01/23 04:10 Results Results/Procedures Labs Laboratory Tests 03/30/23 23:06 03/31/23 04:38 03/31/23 09:53 03/31/23 16:54 04/01/23 04:10 Patient resulted labs reviewed. Imaging: Reviewed Imaging Report Results Labs Labs Laboratory Tests 03/31/23 09:53: Sodium Level 138, Potassium Level 3.2L, Chloride Level 102, Carbon Dioxide Level 23, Anion Gap 13, Blood Urea Nitrogen 13, Creatinine 0.84, Estimat Glomerular Filtration Rate 68, BUN/Creatinine Ratio 15, Glucose Level 152H, Calcium Level 9.0, Procalcitonin 1.33H 03/31/23 12:19: Glucometer 147H 03/31/23 16:54: Sodium Level 138, Potassium Level 3.8, Chloride Level 103, Carbon Dioxide Level 20L, Anion Gap 15H, Blood Urea Nitrogen 15, Creatinine 0.85, Estimat Glomerular Filtration Rate 67, BUN/Creatinine Ratio 18, Glucose Level 131H, Calcium Level 9.1 03/31/23 17:47: Glucometer 123H 04/01/23 00:46: Glucometer 117H 04/01/23 04:10: White Blood Count 10.4, Red Blood Count 3.56L, Hemoglobin 11.5, Hematocrit 35, Mean Corpuscular Volume 97, Mean Corpuscular Hemoglobin 32, Mean Corpuscular Hemoglobin Concent 33, Red Cell Distribution Width 12.9, Platelet Count 159, Mean Platelet Volume 9.5, Sodium Level 137, Potassium Level 3.4L, Chloride Level 106, Carbon Dioxide Level 20L, Anion Gap 11, Blood Urea Nitrogen 21H, Creatinine 1.27, Estimat Glomerular Filtration Rate 41, BUN/Creatinine Ratio 17, Glucose Level 116H, Calcium Level 8.2L, Magnesium Level 2.4 Microbiology 03/29/23 Urine Culture - Final, Complete Klebsiella pneumoniae YOVANI CHILDS MD April 01, 2023 09:06
[2023-04-01] MEDS: meTOprolol 5 MG/5 ML (LOPRESSOR) VIAL IV SCH ×3 (09:32→20:37)
--- NOTE | 2023-04-01 09:52 | Progress Note ---
Subjective Date Seen by a Provider: April 01, 2023 Time Seen by a Provider: 09:30 Subjective/Events-last exam Patient seen with Dr. Marshall. Patient reports doing better today. Denies any Nausea, vomiting, or abdominal pain. NGT in place and functioning. Patient denies any flatus or BM. Objective Exam Vital Signs Date Time Temp Pulse Resp B/P (MAP) Pulse Ox O2 Delivery O2 Flow Rate FiO2 04/01/23 09:00 103 20 131/49 (76) 94 Nasal Cannula 3.00 04/01/23 08:55 Room Air 0.00 04/01/23 08:51 96 Nasal Cannula 2.00 04/01/23 08:00 36.7 04/01/23 08:00 81 20 109/48 (76) 96 Nasal Cannula 3.00 04/01/23 07:00 86 11 104/44 (62) 99 Nasal Cannula 3.00 04/01/23 07:00 85 04/01/23 06:00 83 11 105/40 (61) 96 Nasal Cannula 3.00 04/01/23 05:00 89 9 103/39 (60) 96 Nasal Cannula 3.00 04/01/23 04:00 95 Nasal Cannula 2.00 04/01/23 04:00 89 10 109/42 (64) 97 Nasal Cannula 3.00 04/01/23 03:00 98 12 99/40 (59) 96 Nasal Cannula 3.00 04/01/23 02:00 105 23 106/52 (70) 93 Nasal Cannula 3.00 04/01/23 01:00 111 16 94/41 (58) 92 Nasal Cannula 3.00 04/01/23 01:00 111 04/01/23 00:48 36.7 04/01/23 00:00 94 Room Air 04/01/23 00:00 117 17 93/45 (61) 95 Nasal Cannula 3.00 03/31/23 23:00 118 16 94/47 (63) 95 Nasal Cannula 3.00 03/31/23 22:00 120 16 92/48 (63) 95 Nasal Cannula 3.00 03/31/23 21:00 126 17 91/63 (72) 95 Nasal Cannula 3.00 03/31/23 20:36 Room Air 03/31/23 20:06 37.2 03/31/23 20:00 93 Room Air 03/31/23 20:00 120 15 105/52 (69) 95 Nasal Cannula 3.00 03/31/23 19:00 116 14 105/48 (67) 95 Nasal Cannula 3.00 03/31/23 19:00 Nasal Cannula 3.00 03/31/23 19:00 116 03/31/23 18:05 113 182/68 03/31/23 18:00 129 22 156/64 (93) 92 Room Air 03/31/23 17:00 113 23 182/68 (101) 93 Room Air 03/31/23 16:00 99 24 169/89 (116) 92 Room Air 03/31/23 16:00 95 Room Air 03/31/23 16:00 35.9 03/31/23 15:00 Nasal Cannula 2.00 03/31/23 15:00 96 21 139/97 (107) 91 Room Air 03/31/23 15:00 36.1 21 139/97 (111) 91 Nasal Cannula 2.00 03/31/23 14:50 90 16 148/67 (102) 90 03/31/23 14:50 17 148/67 (94) 95 OxyMask 10.00 03/31/23 14:45 OxyMask 10.00 03/31/23 14:40 90 16 153/67 (97) 94 03/31/23 14:40 14 153/67 (95) 94 OxyMask 10.00 03/31/23 14:30 OxyMask 10.00 03/31/23 14:30 90 139/65 (97) 91 Room Air 03/31/23 14:30 15 139/65 (89) 94 OxyMask 10.00 03/31/23 14:20 23 163/72 (102) 95 OxyMask 10.00 03/31/23 14:20 92 14 163/72 (101) 95 Room Air 03/31/23 14:17 89 166/79 (97) 95 Room Air 03/31/23 14:13 OxyMask 10.00 03/31/23 14:13 36.3 16 166/79 (108) 95 OxyMask 10.00 03/31/23 12:40 79 03/31/23 12:00 95 Room Air 03/31/23 12:00 73 15 163/85 (115) 93 Room Air 03/31/23 12:00 36.6 5/20/23 11:00 80 21 177/88 (111) 94 Room Air 03/31/23 10:00 89 16 154/121 (129) 95 Room Air I & O 04/01/23 07:00 Intake Total 2650 ml Output Total 600 ml Balance 2050 ml Capillary Refill : Less Than 3 Seconds General Appearance: No Apparent Distress, WD/WN Neck: Non Tender, Supple Respiratory: No Accessory Muscle Use, No Respiratory Distress Gastrointestinal: non tender, soft Extremity: Normal Inspection, Normal Range of Motion Neurologic/Psychiatric: Alert, Oriented x3 Skin: Normal Color, Warm/Dry Results Lab Laboratory Tests 03/31/23 09:53: Sodium Level 138, Potassium Level 3.2L, Chloride Level 102, Carbon Dioxide Level 23, Anion Gap 13, Blood Urea Nitrogen 13, Creatinine 0.84, Estimat Glomerular Filtration Rate 68, BUN/Creatinine Ratio 15, Glucose Level 152H, Calcium Level 9.0, Procalcitonin 1.33H 03/31/23 12:19: Glucometer 147H 03/31/23 16:54: Sodium Level 138, Potassium Level 3.8, Chloride Level 103, Carbon Dioxide Level 20L, Anion Gap 15H, Blood Urea Nitrogen 15, Creatinine 0.85, Estimat Glomerular Filtration Rate 67, BUN/Creatinine Ratio 18, Glucose Level 131H, Calcium Level 9.1 03/31/23 17:47: Glucometer 123H 04/01/23 00:46: Glucometer 117H 04/01/23 04:10: White Blood Count 10.4, Red Blood Count 3.56L, Hemoglobin 11.5, Hematocrit 35, Mean Corpuscular Volume 97, Mean Corpuscular Hemoglobin 32, Mean Corpuscular Hemoglobin Concent 33, Red Cell Distribution Width 12.9, Platelet Count 159, Mean Platelet Volume 9.5, Sodium Level 137, Potassium Level 3.4L, Chloride Level 106, Carbon Dioxide Level 20L, Anion Gap 11, Blood Urea Nitrogen 21H, Creatinine 1.27, Estimat Glomerular Filtration Rate 41, BUN/Creatinine Ratio 17, Glucose Level 116H, Calcium Level 8.2L, Magnesium Level 2.4 Microbiology 03/29/23 Urine Culture - Final, Complete Klebsiella pneumoniae Assessment/Plan Assessment/Plan Assess & Plan/Chief Complaint An 87 year old female with a Small bowel obstruction, UTI, possible right lower lobe aspiration, Pain, Nausea, HTN VSS WBC down to 10.4 Continue NGT and await bowel function NPO Pain and nausea meds prn Abx Continue Protonix HARJEET COLLINS [employer] OPERATOR April 01, 2023 09:52
--- NOTE | 2023-04-01 11:22 | Progress Note - Hospitalist ---
Subjective HPI/CC On Admission Date Seen by Provider: April 01, 2023 Pt is an 87yoCF with a PMH of breast cancer, coronary artery disease, failure, GI bleed, small bowel obstruction, bowel resection, hypothyroidism who presented to the emergency department due to chest and back pain along with stomach pain. She reports that it started in the past 24 hours. Her last bowel movement was 2 days ago but she believes she is passing gas this morning. She has a history of a bowel obstruction necessitating bowel resection in the past she was up at for over a week for this. Symptoms are similar to that. She reported her pain is 10 out of [address] revealed a high grade small bowel obstruction. NGT was attempted but unable to be passed and she would not tolerate repeat attempt. Pain is improved with morphine though. Subjective/Events-last exam Pt reports doing much better today. No BM or flatus but pain improved. Tolerated NGT placement well. Throat irritated from NGT but doing ok. Chest pain resolved. Objective Exam Vital Signs Vital Signs Date Time Temp Pulse Resp B/P (MAP) Pulse Ox O2 Delivery O2 Flow Rate FiO2 04/01/23 10:00 80 14 101/44 (63) 94 Room Air 04/01/23 08:00 36.7 Capillary Refill : Less Than 3 Seconds General Appearance: No Apparent Distress, Thin HEENT: Other (NGT in place) Respiratory: Lungs Clear, No Respiratory Distress Cardiovascular: Regular Rate, Rhythm Gastrointestinal: Abnormal Bowel Sounds (absent), Distended (less so than yesterday though), Tenderness (veyr mild, much improved) Neurologic/Psychiatric: Alert, Oriented x3 Results/Procedures Lab Laboratory Tests 03/31/23 16:54 04/01/23 04:10 Patient resulted labs reviewed. Imaging: Reviewed Imaging Report Assessment/Plan Assessment and Plan Assess & Plan/Chief Complaint High grade small bowel obstruction h/o bowel resection h/o GI Bleed Keep NPO Continue IV morphine and fentanyl patch Surgery consulted, appreciate recs NGT placed with endoscopy yesterday Hgb stable- monitor Small bowel study shows SBO MONICO Creatinine up from 0.85 to 1.27 today UOP marginal Continue IVF trend CAD CHF HTN Chest pain Off nitro gtt since last night Cardiology consulted, appreciate recs Follows with Dr Tristan Has been told she has inoperable heart disease with worsening EF- records re quested Dr Tristan recommended medical management Hypokalemia persistent replace per protocol Bacteria in urine No evidence of infection Monitor but will hold off on abx for now Hypothyroidism GERD Continue home meds as able but NPO so limited Breast cancer On tamoxifen Follows with Dr Lafleur Spoke with Dr Pittman (PCP) on admission and he presumes it is metastatic due to back pain but not mentioned on imaging Advance care planning Switched to DNR yesterday DVT ppx: SCDs Critical Care Critically Ill Patient Diagnosis/Problems Diagnosis/Problems (1) SBO (small bowel obstruction) Status: Acute (2) Hypokalemia Status: Acute MINERVA MANZO MD April 01, 2023 11:21
[2023-04-01] MEDS: fentaNYL INJ 100 MCG/2 ML AMP IVP PRN ×4 (12:33→20:43)
[2023-04-01] MEDS: ENOXAPARIN INJECTION 30 MG/0.3 ML SYR SC SCH (16:20)
[2023-04-02] MEDS: fentaNYL INJ 100 MCG/2 ML AMP IVP PRN ×13 (00:50→23:31)
[2023-04-02] MEDS: meTOprolol 5 MG/5 ML (LOPRESSOR) VIAL IV SCH ×4 (04:06→21:41)
[2023-04-02] MEDS: 1/2 NS W/KCL 20 MEQ/L 1,000 ML IV SCH (04:34)
[2023-04-02 04:38] LABS: HEMATOCRIT 34 % (35-52); HEMOGLOBIN 11.1 g/dL (11.5-16.0); MEAN CORPUSCULAR HEMOGLOBIN 32 pg (25-34); MEAN CORPUSCULAR HGB CONC 33 g/dL (32-36); MEAN CORPUSCULAR VOLUME 97 fL (80-99); MEAN PLATELET VOLUME 9.5 fL (9.0-12.2); PLATELET COUNT 156 10^3/uL (130-400); WHITE BLOOD COUNT 11.8 10^3/uL (4.3-11.0)
[2023-04-02 04:49] LABS: CALCIUM 8.3 MG/DL (8.5-10.1)
[2023-04-02 04:54] LABS: CREATININE SERUM 0.87 MG/DL (0.60-1.30)
[2023-04-02 04:56] LABS: MAGNESIUM 2.1 MG/DL (1.6-2.4)
[2023-04-02] MEDS: KCL 20 MEQ TAB (K-DUR) PO SCH (05:16)
[2023-04-02] MEDS: MAGNESIUM 1 GM/100 ML IVPB 100 ML IV SCH (05:16)
[2023-04-02] MEDS: POTASSIUM CL 10MEQ/50ML IVPB 50 ML IV SCH ×8 (05:16→16:49)
[2023-04-02] MEDS ORDERED: POTASSIUM CL 10MEQ/50ML IVPB 400 ML IV ONE (05:23)
--- NOTE | 2023-04-02 06:50 | Physical Therapy Progress Note ---
Therapy Progress Note Due to ICU transfer, PT will require new orders. ADAM LUKE PT April 02, 2023 06:50
--- NOTE | 2023-04-02 08:07 | Progress Note - Surgery ---
KACEY MEDEIROS 04/02/23 0807: Subjective Date Seen by a Provider: April 02, 2023 Time Seen by a Provider: 07:20 Subjective/Events-last exam Pt was seen lying in bed, she is unfortunately feeling depressed and anxious today, she says she just feels like its always gonna be something and that she "just wants to and have it end". She says her pain has improved over the weekend and that the NGT made a big difference, she rates her cumulative pain a 5/10 and abdominal pain 4/10 palpated, and 0/10 at rest. She denies any n/v/d/f/c, current chest pains, SOB, or confusion. + sore throat, abdominal pain (RUQ), back pain Review of Systems General: No Chills, No Night Sweats, No Malaise HEENT: No Dysphasia; Sore Throat Pulmonary: No Dyspnea, No Cough Cardiovascular: No: Chest Pain, Edema, Lt Headedness Gastrointestinal: Abdominal Pain, Constipation; No: Nausea, Vomiting Genitourinary: Dysuria, Frequency (decreased) Musculoskeletal: back pain; No: leg pain Neurological: No: Weakness, Change in speech, Confusion Objective Exam Vital Signs Date Time Temp Pulse Resp B/P (MAP) Pulse Ox O2 Delivery O2 Flow Rate FiO2 04/02/23 07:22 94 04/02/23 06:00 98 9 129/58 (84) 94 Room Air 04/02/23 05:00 84 11 132/55 (84) 94 Room Air 04/02/23 04:00 103 28 139/76 (83) 94 Room Air 04/02/23 04:00 36.9 04/02/23 04:00 95 Room Air 04/02/23 03:00 85 12 131/55 (75) 94 Room Air 04/02/23 02:00 84 12 121/55 (75) 93 Room Air 04/02/23 01:00 86 14 124/70 (82) 91 Room Air 04/02/23 01:00 97 04/02/23 00:00 87 11 124/56 (71) 93 Room Air 04/02/23 00:00 95 Room Air 04/02/23 00:00 36.6 04/01/23 23:00 93 15 131/49 (77) 92 Room Air 04/01/23 22:00 86 13 112/51 (67) 94 Room Air 04/01/23 21:07 96 Room Air 0.00 04/01/23 21:00 87 11 119/47 (72) 94 Room Air 04/01/23 20:00 90 12 114/51 (73) 94 Room Air 04/01/23 20:00 95 Room Air 04/01/23 20:00 36.5 Room Air 04/01/23 19:00 90 12 121/48 (65) 93 Room Air 04/01/23 19:00 90 04/01/23 18:00 99 18 136/61 (70) 94 Room Air 04/01/23 17:00 89 14 116/48 (74) 95 Room Air 04/01/23 16:00 95 Nasal Cannula 2.00 04/01/23 16:00 90 11 120/44 (75) 95 Room Air 04/01/23 15:00 92 12 110/50 (65) 94 Room Air 04/01/23 14:00 86 11 111/38 (63) 95 Room Air 04/01/23 13:00 85 13 111/39 (66) 96 Room Air 04/01/23 13:00 94 04/01/23 12:00 105 23 111/51 (56) 94 Room Air 04/01/23 12:00 95 Nasal Cannula 2.00 04/01/23 11:00 84 15 108/43 (62) 95 Room Air 04/01/23 10:00 80 14 101/44 (63) 94 Room Air 04/01/23 09:00 103 20 131/49 (76) 94 Nasal Cannula 3.00 04/01/23 08:55 Room Air 0.00 04/01/23 08:51 96 Nasal Cannula 2.00 I & O 04/02/23 07:00 Output Total 1400 ml Balance -1400 ml Capillary Refill : Less Than 3 Seconds General Appearance: No Apparent Distress, WD/WN, Thin HEENT: PERRL/EOMI, Pharynx Normal; No Moist Mucous Membranes; Other (NGT in place) Neck: Non Tender, Supple Respiratory: Chest Non Tender, Lungs Clear, No Respiratory Distress Cardiovascular: Irregularly Irregular, Tachycardia Peripheral Pulses: 2+ Dorsalis Pedis (R), 2+ Left Dors-Pedis (L), 2+ Radial Pulses (R), 2+ Radial Pulses (L) Gastrointestinal: soft; No guarding; tenderness Extremity: Normal Capillary Refill, No Pedal Edema, Calf Tenderness Neurologic/Psychiatric: Alert, Oriented x3, Depressed Affect Skin: Normal Color, Warm/Dry Lymphatic: No Adenopathy Results Lab Laboratory Tests 04/01/23 18:36: Glucometer 72 04/02/23 04:08: White Blood Count 11.8H, Red Blood Count 3.44L, Hemoglobin 11.1L, Hematocrit 34L , Mean Corpuscular Volume 97, Mean Corpuscular Hemoglobin 32, Mean Corpuscular Hemoglobin Concent 33, Red Cell Distribution Width 12.8, Platelet Count 156, Mean Platelet Volume 9.5, Sodium Level 138, Potassium Level 3.0L, Chloride Level 106, Carbon Dioxide Level 18L, Anion Gap 14, Blood Urea Nitrogen 23H, Creatinine 0.87, Estimat Glomerular Filtration Rate 65, BUN/Creatinine Ratio 26, Glucose Level 68L, Calcium Level 8.3L, Phosphorus Level 2.4, Magnesium Level 2.1 Microbiology 03/29/23 Urine Culture - Final, Complete Klebsiella pneumoniae Assessment/Plan Assessment/Plan Assessment/Plan Small bowel obstruction UTI NSTEMI (03/31/23) Pain Nausea HTN Anxiety * Volume resucitation via IVF, PICC line ordered for possible TPN * Bowel rest, NPO * Serial abdominal imaging * Cont. electrolyte correction/supplementation per protocol * prophylactic abx (for UTI ) * Cont. current dosing/schedule of pain medicine/ nausea meds. * NGT in place * Cardiology monitoring her heart function * give anti-anxiety PRN Pt remains a poor surgical candidate, will continue with conservative treatment and monitoring. ELIZABETH FARLEY DO 04/03/23 182: Subjective Subjective/Events-last exam Patient is still with pain. No flatus or bm. Ng tube was placed and has felt better since having it placed. Family at bedside. Denies n/\\v fever sweats chills shortness of breath or chest pain at this time. Objective Exam General Appearance: No Apparent Distress, Thin HEENT: PERRL/EOMI, Normal ENT Inspection, Other (NGT in place) Neck: Non Tender, Supple Respiratory: Chest Non Tender, No Accessory Muscle Use, No Respiratory Distress Cardiovascular: Irregularly Irregular, Tachycardia Gastrointestinal: soft, guarding, tenderness (upper abdomen) Extremity: Normal Inspection, Non Tender Neurologic/Psychiatric: Alert, Oriented x3 Skin: Normal Color, Warm/Dry Lymphatic: No Adenopathy Assessment/Plan Assessment/Plan Assessment/Plan Small bowel obstruction History of Matthew shunt UTI NSTEMI (03/31/23) Pain Nausea HTN Anxiety * Volume resucitation via IVF, PICC line ordered for possible TPN * Bowel rest, NPO * KUB today ordered, does demonstrated contrast in sigmoid/rectum, distention of stomach * Cont. electrolyte correction/supplementation per protocol * prophylactic abx (for UTI ) * Cont. current dosing/schedule of pain medicine/ nausea meds. * NGT in place * Cardiology monitoring her heart function * give anti-anxiety PRN Pt remains a poor surgical candidate, will continue with conservative treatment and monitoring. Patient and family wanting to discuss hospice care, will arrange. Supervisory-Addendum Brief Verification & Attestation Participated in pt care: history, MDM, physical Personally performed: exam, history, MDM, supervision of care Care discussed with: Medical Student Procedures: n/a Results interpretation: Verified all documentation Verification and Attestation of Medical Student E/M Service A medical student performed and documented this service in my presence. I reviewed and verified all information documented by the medical student and made modifications to such information, when appropriate. I personally performed the physical exam and medical decision making. Elizabeth Farley, April 02, 2023,20:28 KACEY MEDEIROS April 02, 2023 08:07 ELIAZBETH FARLEY DO April 03, 2023 18:28
[2023-04-02] MEDS: PANTOPRAZOLE 40 MG (PROTONIX) VIAL IV SCH ×2 (08:18→20:36)
--- NOTE | 2023-04-02 09:20 | Diagnostic Imaging Report ---
HISTORY: Bowel obstruction COMPARISON: 03/30/2023 TECHNIQUE: Frontal view of the abdomen in supine position. FINDINGS: The stomach appears moderately distended with gas. There is an enteric tube coiled and projecting over the stomach. No small bowel distention is seen. Multiple ilia are noted in the midline. Cholecystectomy clips are noted. There is suture material in the left upper abdomen. There is contrast at the sigmoid colon and rectum. No large collection of free air is seen on this supine view. IMPRESSION: 1. Moderate gaseous distention of the stomach. No significant small bowel distention is seen. 2. Contrast in the sigmoid colon and rectum. Dictated by: Dictated on workstation # [id number]
--- NOTE | 2023-04-02 09:44 | Tele-ICU Progress Note ---
Subjective Date Seen by a Provider: April 02, 2023 Time Seen by a Provider: 09:42 Subjective/Events-last exam (Tele-ICU Physician , consultation as per request of PCP Service provided via interactive audio and video telecommunications E-CARE system to a patient admitted to ICU bed in [facility]. Available chart/ vitals / labs / Images reviewed H&P is from ER notes Patient's information available about PMH, Shx, Fhx allergy reviewed inEMR. ROS as per chart and RN report Now in ICU, hemodynamically stable Video assessment done using teleICU camera, rest of exam as per RN Discussed with RN. Hospital course: (03/29) 87 y/o F - Chest Pain/Back Pain - UTI - CT = High Grade Bowel Obstr uction - ^Trop (03/30) To ICU - ^Trop - Cardiology consult - Hypertension 03/31- NTG gtt , still no NG , pain not controlled - IV morphine, fentanyl patch to 75mcg 04/01- ECHO -EF 55% gd I dst dsfn, RVSP 35mmHg , NG placed with endoscopy 04/02- hypoglycemia , RA , Kslbs uin urine - OFF ABX A/P High grade small bowel obstruction - pain control with IV morphine, increase fentanyl patch to 75mcg- -Surgery follow - NG on suction CAD, chest pain - NTG gtt OFF - as per cards - conservative management now RLL small infiltrate - ? PNA - monitor , might need abx Hypokalemia - replace Hypoglycemia - change to D5w - NPO for 4 days - follow Sx recon Kslbs uin urine - OFF ABX Breast cancer - tamoxifen - as per notes, presumes it is metastatic due to back pain but not mentioned on imaging Advance care planning - ongoing discussion Lines : periph , (Central Line Necessity Reviewed- might need PICC if consider TPN in close future Aleman: external OG: Nutrition: npo Analgesia: Anxiety/ delirium VTE Prophylaxis: annemarie Stress Ulcer Prophylaxis: ppi Glycemic Control: q 6 h Plans in collaboration with bedside consultants and IM MDs.- discussed with Dr Lau Discussed with RN to reach out if any questions or concerns A total of 20 minutes of critical care time was devoted to this patient today, required to treat and/or prevent further deterioration of critical care condition ( as above ) . I am remotely monitoring this patient from another state. I am unable to do the bedside exam, and history/physical and pertinent information is taken from other notes in the computer and bedside staff. . Sepsis Event Evaluation Height, Weight, BMI Height: 5'4.00" Weight: 128lbs. oz. 58.646000dr; 18.81 BMI Method:Stated Exam Exam Patient acknowledged, consented, and participated in this virtual visit which was conducted using real time audio/video Vital Signs Date Time Temp Pulse Resp B/P (MAP) Pulse Ox O2 Delivery O2 Flow Rate FiO2 04/02/23 09:00 92 27 165/86 (112) 96 Room Air 04/02/23 08:19 115 21 154/61 (92) 93 Room Air 04/02/23 08:00 37.1 Room Air 04/02/23 08:00 87 18 154/61 (92) 95 Room Air 04/02/23 07:22 94 04/02/23 07:00 88 13 136/60 (85) 95 Room Air 04/02/23 06:00 98 9 129/58 (84) 94 Room Air 04/02/23 05:00 84 11 132/55 (84) 94 Room Air 04/02/23 04:00 103 28 139/76 (83) 94 Room Air 04/02/23 04:00 36.9 04/02/23 04:00 95 Room Air 04/02/23 03:00 85 12 131/55 (75) 94 Room Air 04/02/23 02:00 84 12 121/55 (75) 93 Room Air 04/02/23 01:00 86 14 124/70 (82) 91 Room Air 04/02/23 01:00 97 04/02/23 00:00 87 11 124/56 (71) 93 Room Air 04/02/23 00:00 95 Room Air 04/02/23 00:00 36.6 04/01/23 23:00 93 15 131/49 (77) 92 Room Air 04/01/23 22:00 86 13 112/51 (67) 94 Room Air 04/01/23 21:07 96 Room Air 0.00 04/01/23 21:00 87 11 119/47 (72) 94 Room Air 04/01/23 20:00 90 12 114/51 (73) 94 Room Air 04/01/23 20:00 95 Room Air 04/01/23 20:00 36.5 Room Air 04/01/23 19:00 90 12 121/48 (65) 93 Room Air 04/01/23 19:00 90 04/01/23 18:00 99 18 136/61 (70) 94 Room Air 04/01/23 17:00 89 14 116/48 (74) 95 Room Air 04/01/23 16:00 95 Nasal Cannula 2.00 04/01/23 16:00 90 11 120/44 (75) 95 Room Air 04/01/23 15:00 92 12 110/50 (65) 94 Room Air 04/01/23 14:00 86 11 111/38 (63) 95 Room Air 04/01/23 13:00 85 13 111/39 (66) 96 Room Air 04/01/23 13:00 94 04/01/23 12:00 105 23 111/51 (56) 94 Room Air 04/01/23 12:00 95 Nasal Cannula 2.00 04/01/23 11:00 84 15 108/43 (62) 95 Room Air 04/01/23 10:00 80 14 101/44 (63) 94 Room Air I & O 04/02/23 07:00 Output Total 1400 ml Balance -1400 ml Height & Weight Height: 5'4.00" Weight: 128lbs. oz. 58.425021yv; 18.81 BMI Method:Stated General Appearance: No Apparent Distress, WD/WN, Thin HEENT: PERRL/EOMI, Pharynx Normal; No Moist Mucous Membranes; Other (NGT in place) Neck: Non Tender, Supple Respiratory: Chest Non Tender, Lungs Clear, No Respiratory Distress Cardiovascular: Irregularly Irregular, Tachycardia Capillary Refill: Less Than 3 Seconds Peripheral Pulses: 2+ Dorsalis Pedis (R), 2+ Left Dors-Pedis (L), 2+ Radial Pulses (R), 2+ Radial Pulses (L) Gastrointestinal: soft; No guarding; tenderness Extremity: Normal Capillary Refill, No Pedal Edema, Calf Tenderness Neurologic/Psychiatric: Alert, Oriented x3, Depressed Affect Skin: Normal Color, Warm/Dry Lymphatic: No Adenopathy Results Lab Laboratory Tests 03/31/23 09:53 03/31/23 16:54 04/01/23 04:10 04/02/23 04:08 Assessment/Plan Assessment/Plan 1 ASHWIN BENNETT MD April 02, 2023 09:44
[2023-04-02] MEDS ORDERED: DEXTROSE 50% 50 ML (IMS) SYR IV ONE (09:45)
[2023-04-02] MEDS ORDERED: D5 1/2 NS W/KCL 20 MEQ/L 1,000 ML IV SCH (09:45)
[2023-04-02] MEDS: NS IV 500 ML 500 ML IV PRN ×2 (09:50→14:22)
--- NOTE | 2023-04-02 09:53 | Cardiology Progress Note ---
Subjective Date Seen by Provider: April 02, 2023 Time Seen by Provider: 09:52 Subjective/Events-last exam Patient was seen at bedside, laying down comfortably, complain of generalized body ache Review of Systems General: No Chills, No Night Sweats; Fatigue, Malaise; No Appetite, No Other HEENT: No Head Aches, No Visual Changes, No Eye Pain, No Ear Pain, No Dysphasia, No Sinus Congestion, No Post Nasal Drip, No Sore Throat, No Other Pulmonary: No Dyspnea, No Cough, No Pleuritic Chest Pain, No Other Cardiovascular: Chest Pain; No: Palpitations, Orthopnea, Paroxysmal Noc. Dyspnea, Edema, Lt Headedness, Other Objective-Cardiology Exam Last Set of Vital Signs Vital Signs 04/01/23 04/02/23 21:07 09:00 Pulse 92 Resp 27 B/P (MAP) 165/86 (112) Pulse Ox 96 O2 Delivery Room Air O2 Flow Rate 0.00 I&O Intake and Output 04/02/23 00:00 Intake Total 550 ml Output Total 1000 ml Balance -450 ml IV Total 550 ml Output Urine Total 875 ml Gastric Drainage Total 125 ml General: Alert, Oriented X3, Cooperative HEENT: Atraumatic, PERRLA Neck: Supple, No JVD, No Thyromegaly Lungs: Clear to Auscultation, Normal Air Movement Heart: Regular Rate, Normal S1, Normal S2, No Murmurs Abdomen: Normal Bowel Sounds, Soft, No Tenderness, No Hepatosplenomegaly, No Masses Extremities: No Clubbing, No Cyanosis, No Edema, Normal Pulses, No Tenderness/Swelling Skin: No Rashes, No Breakdown, No Significant Lesion Neuro: Normal Gait, Normal Speech, Strength at 5/5 X4 Ext, Normal Tone, Sensation Intact Psych/Mental Status: Mental Status NL, Mood NL Results Lab Laboratory Tests 04/02/23 04:08 A/P-Cardiology Admission Diagnosis Unstable angina Non-ST elevation myocardial infarction Congestive heart failure, chronic compensated left ventricular systolic dysfunction, ischemic cardiomyopathy Small bowel obstruction Assessment/Plan Unstable angina, non-ST elevation myocardial infarction Reporting improvement in her chest pain, no further episodes of chest pain. Minimal elevation in troponin, conservative management is recommended Coronary artery disease, Cardiac catheterization done by Dr. Livingston in 2007 showing mild diffuse coronary artery disease nonobstructive disease Has been following with Dr. Tristan, had stress test done recently and it was significantly abnormal according to the family and the patient and Dr. Tristan elected conservative management due to her high risk. Currently having chest pain and mild elevation in troponin, conservative management is recommended Continue nitroglycerin drip Cannot tolerate aggressive anticoagulation Congestive heart failure, patient is reporting having severe cardiomyopathy. Currently compensated High-grade small bowel obstruction, history of bowel obstruction in the past. Has an NG tube, feeling significantly better. Managed by Dr. Marshall and medical team History of GI bleed, was unable to tolerate oral anticoagulation in the past Hypertensive emergency, severe hypertension, started on nitroglycerin drip Currently off nitroglycerin drip, tolerating IV metoprolol Continue to monitor Hypokalemia, managed and replaced with the eICU Hypothyroidism, managed by primary care physician Gastroesophageal reflux disease Preoperative cardiac evaluation Patient may require abdominal surgery, she is considered at high risk for perioperative cardiovascular complication, unable to tolerate any intervention at this time Decision regarding the surgery, risk versus benefit is deferred to the surgeon JAROD BARNEY MD April 02, 2023 09:53
[2023-04-02] MEDS ORDERED: fentaNYL INJ 100 MCG/2 ML AMP IVP ONE (10:15)
--- NOTE | 2023-04-02 14:00 | Progress Note - Hospitalist ---
ALLAEDUARDO 04/02/23 1400: Subjective HPI/CC On Admission Pt is an 87yoCF with a PMH of breast cancer, coronary artery disease, failure, GI bleed, small bowel obstruction, bowel resection, hypothyroidism who presented to the emergency department 03/29 due to chest and back pain along with stomach pain. She reports that it started in the past 24 hours. Her last bowel movement was 2 days ago but she believes she is passing gas this morning. She has a history of a bowel obstruction necessitating bowel resection in the past she was up at for over a week for this. Symptoms are similar to that. She reported her pain is 10 out of [address] revealed a high grade small bowel obstruction. NGT was attempted but unable to be passed and she would not tolerate repeat attempt. Pain is improved with morphine though. Subjective/Events-last exam Patient is in a lot of pain today, 10/10 stomach and back. The pain worsens with movement and improves with pain medicine. No passing gas or BM. She reports she is tired of being in pain and is very tired. She has family at bedside. Pt had NGT placed by Dr. Marshall via endoscopy and has had minimal output, still with nausea. She is having some SOB today that she somewhat attributes to pain. Denies any urinary issues prior to arrival. Review of Systems General: No Chills; Fatigue Pulmonary: Dyspnea Cardiovascular: No: Chest Pain Gastrointestinal: Nausea, Abdominal Pain; No: Vomiting Musculoskeletal: back pain Objective Exam Vital Signs Vital Signs Date Time Temp Pulse Resp B/P (MAP) Pulse Ox O2 Delivery O2 Flow Rate FiO2 04/02/23 13:00 84 11 138/87 (104) 95 Room Air 04/02/23 08:00 37.1 04/01/23 21:07 0.00 Capillary Refill : Less Than 3 Seconds General Appearance: Anxious, Chronically ill HEENT: Other (NGT in place) Respiratory: Lungs Clear, Normal Breath Sounds, No Respiratory Distress Cardiovascular: Regular Rate, Rhythm, No Murmur Gastrointestinal: Soft, Abnormal Bowel Sounds (absent), Tenderness (diffusely TTP) Back: No No CVA Tenderness; Vertebral Tenderness Extremity: No Pedal Edema Neurologic/Psychiatric: Alert, Oriented x3, Depressed Affect Results/Procedures Lab Laboratory Tests 04/02/23 04:08 Patient resulted labs reviewed. Imaging: Reviewed Imaging Report Assessment/Plan Assessment and Plan Assess & Plan/Chief Complaint Small bowel obstruction h/o bowel resection h/o GI Bleed Hypoglycemia Keep NPO Continue IV fentanyl and fentanyl patch Surgery following Hgb stable- monitor Small bowel study shows SBO NGT in place with minimal output and gastric distension on abdominal x-ray today, consider increasing suction per surgery recs Nutrition consulted per surgery for possible PICC line placement given prolonged NPO status, continue dextrose as needed MONICO Creatinine improved to 0.87 today Good urine output Continue IVF CAD CHF HTN Chest pain Off nitro gtt Cardiology consulted, appreciate recs Follows with Dr Tristan Has been told she has inoperable heart disease with worsening EF Dr Tristan recommended medical management Hypokalemia persistent replace per protocol Bacteria in urine Urine culture with Klebsiella No clinical evidence of infection Monitor but will hold off on abx for now Hypothyroidism GERD Continue home meds as able but NPO so limited Breast cancer On tamoxifen Follows with Dr Miquel Lau spoke with Dr Pittman (PCP) on admission and he presumes it is metastatic due to back pain but not mentioned on imaging Advance care planning Switched to DNR Palliative care consulted DVT ppx: SCDs Critical Care: Critically Ill Patient ROBERTA DIETZ MD 04/02/23 1829: Subjective HPI/CC On Admission Date Seen by Provider: April 02, 2023 Time Seen by Provider: 09:45 Objective Results/Procedures Imaging: Reviewed Imaging Films, Reviewed Imaging Report Assessment/Plan Assessment and Plan Assess & Plan/Chief Complaint Patient reporting significant pain, concerned about lack of improvement. Giving one time increased dose of Fentanyl. Begin Rocephin for possible UTI. She is adamant about discontinuing current care and transitioning to comfort based care. Family tearful, planning to discuss with family friend and surgeon, Dr. Farley. Palliative care consulted. Await decision. Diagnosis/Problems Diagnosis/Problems (1) SBO (small bowel obstruction) Status: Acute (2) CAD (coronary artery disease) Status: Chronic (3) HTN (hypertension) Status: Chronic (4) CHF (congestive heart failure) Status: Chronic (5) Breast cancer Status: Chronic (6) UTI (urinary tract infection) Status: Acute (7) Advanced age Status: Chronic (8) Poor prognosis Status: Acute (9) Goals of care, counseling/discussion Status: Acute Supervisory-Addendum Brief Verification & Attestation Participated in pt care: history, MDM, physical Personally performed: exam, history, MDM, supervision of care Care discussed with: Medical Student Procedures: n/a A medical student performed and documented this service in my presence. I reviewed and verified all information documented by the medical student and made modifications to such information, when appropriate. I personally performed the physical exam and medical decision making. EDUARDO GOLD April 02, 2023 14:00 ROBERTA DIETZ MD April 02, 2023 18:29
[2023-04-02] MEDS: ENOXAPARIN INJECTION 30 MG/0.3 ML SYR SC SCH (15:32)
[2023-04-02] MEDS: D5 1/2 NS W/KCL 20 MEQ/L 1,000 ML IV SCH (18:25)
[2023-04-02 19:00] VITALS: BP 146/62
[2023-04-02] MEDS ORDERED: cefTRIAXone IV/IM 1,000 MG in NS (IVPB) 50 ML IV SCH (19:00)
[2023-04-02] MEDS: CHLORASEPTIC SPRAY 177 ML LIQUID MC PRN (19:46)
[2023-04-02 21:38] VITALS: BP 160/70
[2023-04-02 23:24] VITALS: BP 166/72
[2023-04-03] MEDS: fentaNYL INJ 100 MCG/2 ML AMP IVP PRN ×6 (00:31→08:45)
[2023-04-03 03:33] VITALS: BP 183/81
[2023-04-03] MEDS: meTOprolol 5 MG/5 ML (LOPRESSOR) VIAL IV SCH ×2 (03:35→08:45)
[2023-04-03 04:15] VITALS: BP 157/71
[2023-04-03 04:32] LABS: HEMATOCRIT 32 % (35-52); HEMOGLOBIN 10.6 g/dL (11.5-16.0); MEAN CORPUSCULAR HEMOGLOBIN 32 pg (25-34); MEAN CORPUSCULAR HGB CONC 34 g/dL (32-36); MEAN CORPUSCULAR VOLUME 96 fL (80-99); MEAN PLATELET VOLUME 9.4 fL (9.0-12.2); PLATELET COUNT 165 10^3/uL (130-400); WHITE BLOOD COUNT 12.3 10^3/uL (4.3-11.0)
[2023-04-03 05:00] LABS: CALCIUM 8.2 MG/DL (8.5-10.1); CREATININE SERUM 0.77 MG/DL (0.60-1.30); MAGNESIUM 1.8 MG/DL (1.6-2.4); PHOSPHORUS 1.6 MG/DL (2.3-4.7); POTASSIUM 2.9 MMOL/L (3.6-5.0)
[2023-04-03] MEDS: KCL 20 MEQ TAB (K-DUR) PO SCH (05:03)
[2023-04-03] MEDS: MAGNESIUM 1 GM/100 ML IVPB 100 ML IV SCH ×3 (05:06→06:26)
[2023-04-03] MEDS: POTASSIUM CL 10MEQ/50ML IVPB 50 ML IV SCH ×3 (05:10→08:46)
[2023-04-03] MEDS: D5 1/2 NS W/KCL 20 MEQ/L 1,000 ML IV SCH (06:05)
[2023-04-03] MEDS: NS IV 500 ML 500 ML IV PRN (06:26)
[2023-04-03 07:08] VITALS: BP 173/83
--- NOTE | 2023-04-03 07:37 | Progress Note - Surgery ---
KACEY MEDEIROS 04/03/23 0737: Subjective Date Seen by a Provider: April 03, 2023 Time Seen by a Provider: 07:00 Subjective/Events-last exam Pt was seen with daughter at bedside, sitting up with bucket because she was dry heaving. Pt was a poor historian due to her crying, and anger. She said "I want surgery today, I am tired of being careful and want someone to do something." She said she was in pain 10/10 all over and could isolate a location, she said she slept 30 minutes last night due to pain, nausea, and chills. She told me she couldnt tell if she was SOB, or had chest pain because "everything was in pain". Denied BM, or flatus Review of Systems General: Chills, Malaise HEENT: No Dysphasia; Sore Throat Pulmonary: Dyspnea; No Cough, No Pleuritic Chest Pain Cardiovascular: No: Palpitations, Paroxysmal Noc. Dyspnea, Edema Gastrointestinal: Nausea, Vomiting (dry heaves), Abdominal Pain, Constipation Genitourinary: Dysuria; No Hematuria Musculoskeletal: back pain; No: leg pain Neurological: No: Change in speech, Confusion Objective Exam Vital Signs Date Time Temp Pulse Resp B/P (MAP) Pulse Ox O2 Delivery O2 Flow Rate FiO2 04/03/23 07:08 36.8 90 20 173/83 (113) 93 Room Air 04/03/23 04:15 88 157/71 (99) 04/03/23 03:33 36.6 90 20 183/81 (115) 94 Room Air 04/03/23 01:08 81 04/02/23 23:24 36.6 87 20 166/72 (103) 93 Room Air 04/02/23 21:38 92 160/70 (100) 04/02/23 19:50 Room Air 04/02/23 19:00 37.0 91 18 146/62 (90) 92 Room Air 04/02/23 19:00 80 04/02/23 18:00 87 16 138/63 (88) 94 Room Air 04/02/23 17:00 92 19 153/80 (104) 94 Room Air 04/02/23 16:18 37.0 04/02/23 16:00 95 Room Air 04/02/23 16:00 96 26 154/92 (112) 94 Room Air 04/02/23 15:00 81 11 149/70 (96) 95 Room Air 04/02/23 14:00 93 18 191/86 (121) 94 Room Air 04/02/23 13:00 84 11 138/87 (104) 95 Room Air 04/02/23 12:23 88 04/02/23 12:00 85 16 154/66 (95) 93 Room Air 04/02/23 12:00 95 Room Air 04/02/23 12:00 37.1 04/02/23 11:00 92 15 146/77 (100) 92 Room Air 04/02/23 10:00 96 18 154/64 (94) 94 Room Air 04/02/23 09:00 92 27 165/86 (112) 96 Room Air 04/02/23 08:19 115 21 154/61 (92) 93 Room Air 04/02/23 08:00 37.1 Room Air 04/02/23 08:00 95 Room Air 04/02/23 08:00 87 18 154/61 (92) 95 Room Air I & O 04/03/23 06:59 Intake Total 3000 ml Output Total 2000 ml Balance 1000 ml Capillary Refill : Less Than 3 Seconds General Appearance: Anxious, Chronically ill, Moderate Distress (screaming she wants to , and that she would be nice anymore, that she wants surgery.) HEENT: PERRL/EOMI; No Photophobia; Other (NGT in place) Neck: Non Tender, Supple Respiratory: Lungs Clear, No Respiratory Distress, Decreased Breath Sounds, Other (pt was crying, and difficult to hear lung sounds, lung bases sounded decreased b/l) Cardiovascular: Regular Rate, Rhythm, No Murmur Peripheral Pulses: 2+ Dorsalis Pedis (R), 2+ Left Dors-Pedis (L), 2+ Radial Pulses (R), 2+ Radial Pulses (L) Gastrointestinal: soft; No guarding, No rebound; tenderness Extremity: No Pedal Edema Neurologic/Psychiatric: Alert, Oriented x3, Depressed Affect Skin: Normal Color, Warm/Dry Lymphatic: No Adenopathy Results Lab Laboratory Tests 04/02/23 08:41: Glucometer 63L 04/02/23 11:01: Glucometer 157H 04/02/23 11:48: Glucometer 135H 04/02/23 15:38: Glucometer 85 04/02/23 17:59: Glucometer 82 04/02/23 23:24: Glucometer 117H 04/03/23 04:09: White Blood Count 12.3H, Red Blood Count 3.31L, Hemoglobin 10.6L, Hematocrit 32L , Mean Corpuscular Volume 96, Mean Corpuscular Hemoglobin 32, Mean Corpuscular Hemoglobin Concent 34, Red Cell Distribution Width 12.8, Platelet Count 165, Mean Platelet Volume 9.4, Sodium Level 140, Potassium Level 2.9L, Chloride Level 110H, Carbon Dioxide Level 22, Anion Gap 8, Blood Urea Nitrogen 15, Creatinine 0.77, Estimat Glomerular Filtration Rate 76, BUN/Creatinine Ratio 19, Glucose Level 145H, Calcium Level 8.2L, Phosphorus Level 1.6L, Magnesium Level 1.8 Microbiology 03/29/23 Urine Culture - Final, Complete Klebsiella pneumoniae Assessment/Plan Assessment/Plan Assessment/Plan Small bowel obstruction UTI (WBC: 12.3) NSTEMI (03/31/23) Pain Nausea HTN Anxiety * Volume resucitation via IVF * Bowel rest, NPO * Serial abdominal imaging * Cont. electrolyte correction/supplementation per protocol * prophylactic abx (for UTI ) * Cont. current dosing/schedule of pain medicine/ nausea meds. * NGT in place * Cardiology monitoring her heart function * give anti-anxiety PRN pt does not appear to be improving with conservative measures, palliative care looks like next direction ELIZABETH FARLEY DO 04/03/23 5631: Subjective Subjective/Events-last exam Patient and family have discussed and do not want any surgical intervention. They have made her comfort care. I had discussion with daughter and granddaughters and answered all their questions. They are okay with Kierra's dec ision. They just want her comfortable. Kierra is comfortable and not having any pain at the time of me seeing her. Objective Exam General Appearance: No Apparent Distress, Thin HEENT: PERRL/EOMI, Normal ENT Inspection Neck: Non Tender, Supple Respiratory: Chest Non Tender, No Accessory Muscle Use, No Respiratory Distress Cardiovascular: Regular Rate, Rhythm, No JVD Gastrointestinal: soft; No guarding, No rebound, No tenderness Extremity: Non Tender, No Calf Tenderness Neurologic/Psychiatric: No Alert, No Oriented x3; Other (laying in bed, comfortable) Skin: Normal Color, Warm/Dry Lymphatic: No Adenopathy Assessment/Plan Assessment/Plan Assessment/Plan Small bowel obstruction Hx fabricio shunt UTI (WBC: 12.3) NSTEMI (03/31/23) Pain Nausea HTN Anxiety Patient and family have decided to proceed with comfort care measures. Had discussion with daughter and granddaughters and are okay with decision. Informed them if they have any questions to call me. Will sign off, call if needed. Supervisory-Addendum Brief Verification & Attestation Participated in pt care: history, MDM, physical Personally performed: exam, history, MDM, supervision of care Care discussed with: Medical Student Procedures: n/a Results interpretation: Verified all documentation Verification and Attestation of Medical Student E/M Service A medical student performed and documented this service in my presence. I reviewed and verified all information documented by the medical student and made modifications to such information, when appropriate. I personally performed the physical exam and medical decision making. Elizabeth Farley, April 03, 2023,18:33 KACEY MEDEIROS April 03, 2023 07:37 ELIZABETH FARLEY DO April 03, 2023 18:33
[2023-04-03] MEDS: fentaNYL PATCH 75 MCG (DURAGESIC) TD SCH (08:45)
[2023-04-03] MEDS: PANTOPRAZOLE 40 MG (PROTONIX) VIAL IV SCH (08:46)
[2023-04-03] MEDS ORDERED: FENTANYL PATCH REMOVAL TP SCH (08:59)
[2023-04-03] MEDS ORDERED: fentaNYL INJ 100 MCG/2 ML AMP IVP ONE (09:45)
[2023-04-03] MEDS ORDERED: BISACODYL 10 MG SUPP (DULCOLAX) PR PRN (10:00)
[2023-04-03] MEDS ORDERED: ACETAMINOPHEN 650 MG SUPP (TYLENOL) PR PRN (10:00)
[2023-04-03] MEDS ORDERED: LORazepam 1 MG (ATIVAN) TAB SL PRN (10:00)
[2023-04-03] MEDS ORDERED: GLYCOPYRROLATE 0.2 MG/ML (ROBINUL) 2 ML VIAL IV PRN (10:00)
[2023-04-03] MEDS ORDERED: ARTIFICAL TEARS 0.4 ML UNIT DOSE (REFRESH PLUS) OU PRN (10:00)
[2023-04-03] MEDS ORDERED: SALIVA SUBSTITUTE 60 ML SPRAY(MOUTHKOTE) MM PRN (10:00)
[2023-04-03] MEDS ORDERED: fentaNYL PCA 1,000 MCG/100 ML IV SCH (10:00)
[2023-04-03] MEDS ORDERED: ONDANSETRON 4 MG/2 ML (SDV) Z0FRAN IVP PRN (10:00)
[2023-04-03] MEDS ORDERED: PROMETHAZINE INJ 25 MG/ML (PHENERGAN) AMP IVP PRN (10:00)
[2023-04-03] MEDS ORDERED: RT-ALBUTEROL/IPRATROPIUM 3 ML (DUONEB) VIAL INH PRN (10:00)
[2023-04-03] MEDS ORDERED: NS IV 1000 ML 1,000 ML IV SCH (10:15)
--- NOTE | 2023-04-03 10:22 | Physical Therapy Progress Note ---
Therapy Progress Note Patient adamantly declined PT intervention due to severe uncontrolled pain. PT to dismiss/remove patient from services at this time. 1 ref ADAM LUKE PT April 03, 2023 10:22
[2023-04-03] MEDS ORDERED: SALIVA STIMULANT GEL 1.5 OZ (BIOTENE) TUBE MM PRN (10:30)
--- NOTE | 2023-04-03 11:53 | Progress Note - Hospitalist ---
ALLAEDUARDO 04/03/23 1153: Subjective HPI/CC On Admission Date Seen by Provider: April 03, 2023 Time Seen by Provider: 09:20 Pt is an 87yoCF with a PMH of breast cancer, coronary artery disease, failure, GI bleed, small bowel obstruction, bowel resection, hypothyroidism who presented to the emergency department 03/29 due to chest and back pain along with stomach pain. She reports that it started in the past 24 hours. Her last bowel movement was 2 days ago but she believes she is passing gas this morning. She has a history of a bowel obstruction necessitating bowel resection in the past she was up at for over a week for this. Symptoms are similar to that. She reported her pain is 10 out of [address] revealed a high grade small bowel obstruction. NGT was attempted but unable to be passed and she would not tolerate repeat attempt. Pain is improved with morphine though. Subjective/Events-last exam Today patient states she has pain at 20/10 in severity. She does not want to have surgery and wishes to transition to comfort care measures only. Her family is at bedside. Review of Systems General: Fatigue, Malaise Pulmonary: Dyspnea Gastrointestinal: Abdominal Pain Musculoskeletal: back pain Objective Exam Vital Signs Vital Signs Date Time Temp Pulse Resp B/P (MAP) Pulse Ox O2 Delivery O2 Flow Rate FiO2 04/03/23 08:00 Room Air 04/03/23 07:34 94 04/03/23 07:08 36.8 20 173/83 (113) 93 04/01/23 21:07 0.00 Capillary Refill : Less Than 3 Seconds General Appearance: Chronically ill, Mild Distress Respiratory: No Accessory Muscle Use, No Respiratory Distress Neurologic/Psychiatric: Alert, Oriented x3, Depressed Affect Skin: Normal Color Results/Procedures Lab Laboratory Tests 04/03/23 04:09 Patient resulted labs reviewed. Imaging: Reviewed Imaging Films, Reviewed Imaging Report Assessment/Plan Assessment and Plan Assess & Plan/Chief Complaint Small bowel obstruction h/o bowel resection Fentanyl pain pump NGT removed Return to regular diet Advance care planning Patient is DNR Per pt- transition to comfort care measures only ROBERTA DIETZ MD 04/03/23 1703: Subjective HPI/CC On Admission Time Seen by Provider: 09:35 Objective Exam General Appearance: Chronically ill, Moderate Distress (uncomfortable), Thin Respiratory: No Respiratory Distress, Decreased Breath Sounds Cardiovascular: Regular Rate, Rhythm, No Murmur Gastrointestinal: Soft, Abnormal Bowel Sounds, Tenderness Extremity: Normal Inspection, No Pedal Edema Neurologic/Psychiatric: Alert, Other (agitated, irritable) Skin: Warm/Dry, Pallor Results/Procedures Imaging: Reviewed Imaging Report Assessment/Plan Assessment and Plan Assess & Plan/Chief Complaint Discussed plan with patient and family. Poor surgical candidate due to other medical conditions, malnourished, and does not want ostomy. Patient upset with failure to improve, wants to transition to comfort measures only status. Family reluctant, but patient adamant regarding decision. Transition to comfort measures only status. Will transition to [facility] with [facility] due to uncontrolled pain. 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 Comfort care order set in place. NG tube removed. Diagnosis/Problems Diagnosis/Problems (1) SBO (small bowel obstruction) Status: Acute (2) CAD (coronary artery disease) Status: Chronic (3) CHF (congestive heart failure) Status: Chronic (4) UTI (urinary tract infection) Status: Acute (5) Breast cancer Status: Chronic (6) Poor prognosis Status: Acute (7) Advanced age Status: Chronic (8) Goals of care, counseling/discussion Status: Acute Supervisory-Addendum Brief Verification & Attestation Participated in pt care: history, MDM, physical Personally performed: exam, history, MDM, supervision of care Care discussed with: Medical Student Procedures: n/a A medical student performed and documented this service in my presence. I reviewed and verified all information documented by the medical student and made modifications to such information, when appropriate. I personally performed the physical exam and medical decision making. EDUARDO GOLD April 03, 2023 11:53 ROBERTA DIETZ MD April 03, 2023 17:03
== END 2023-04-03 11:17 | disposition hospice, inpatient (51) | DRG 388 ==
LOC: EDUNIT# 12:21 → ER 12:22 → 4TH 16:08 → ICU 03-30 17:06 → 4TH 04-02 18:16
PROVIDERS: ADMIT Family Medicine; ATTEND Internal Medicine
PROC: 0D9680Z Drainage of Stomach with Drainage Device, Via Natural or Artificial Opening Endoscopic (ICD-10-PCS; 2023-03-31)
PROC: 0DB78ZX Excision of Stomach, Pylorus, Via Natural or Artificial Opening Endoscopic, Diagnostic (ICD-10-PCS; principal; 2023-03-31 12:32)
DX: K56.609 Unspecified intestinal obstruction, unspecified as to partial versus complete obstruction (principal); I21.4 Non-ST elevation (NSTEMI) myocardial infarction; N39.0 Urinary tract infection, site not specified; I50.22 Chronic systolic (congestive) heart failure; I25.110 Atherosclerotic heart disease of native coronary artery with unstable angina pectoris; I16.1 Hypertensive emergency; N17.9 Acute kidney failure, unspecified; E46 Unspecified protein-calorie malnutrition; Z68.1 Body mass index [BMI] 19.9 or less, adult; Z66 Do not resuscitate; Z51.5 Encounter for palliative care; E87.6 Hypokalemia; E03.9 Hypothyroidism, unspecified; I11.0 Hypertensive heart disease with heart failure; I25.5 Ischemic cardiomyopathy; C50.919 Malignant neoplasm of unspecified site of unspecified female breast; M47.9 Spondylosis, unspecified; E11.649 Type 2 diabetes mellitus with hypoglycemia without coma; K21.9 Gastro-esophageal reflux disease without esophagitis; K29.70 Gastritis, unspecified, without bleeding; K21.00 Gastro-esophageal reflux disease with esophagitis, without bleeding; R82.71 Bacteriuria; H54.7 Unspecified visual loss; Z95.5 Presence of coronary angioplasty implant and graft; Z79.82 Long term (current) use of aspirin; Z79.899 Other long term (current) drug therapy; Z88.0 Allergy status to penicillin; Z91.09 Other allergy status, other than to drugs and biological substances
CPT/HCPCS: 36415; 71045; 71275; 74018; 74174; 74250; 80048; 80053; 81000; 82947; 83735; 83874; 84100; 84145; 84484; 85025; 85027; 85610; 85730; 87077; 87088; 87186; 93005; 93041; 93306

== ENCOUNTER 2023-04-03 11:00 | Inpatient (IN) | payer OTHER, MEDICARE ==
[~2023-04-03] VITALS: Ht 163 cm; Wt 48.2 kg
[~2023-04-03 11:00] MED LIST changes: +CARV6.25 PO; +CETI-458 PO; +FENT1PAT9 TD; +ISOS120T9 PO; +PEDI18TA7 PO; +POTA-51 PO; +TORS20TA3 PO
[2023-04-03] MEDS ORDERED: PROMETHAZINE INJ 25 MG/ML (PHENERGAN) AMP IVP PRN (11:30)
[2023-04-03] MEDS ORDERED: BISACODYL 10 MG SUPP (DULCOLAX) PR PRN (11:30)
[2023-04-03] MEDS ORDERED: ACETAMINOPHEN 650 MG SUPP (TYLENOL) PR PRN (11:30)
[2023-04-03] MEDS ORDERED: ARTIFICAL TEARS 0.4 ML UNIT DOSE (REFRESH PLUS) OU PRN (11:30)
[2023-04-03] MEDS ORDERED: GLYCOPYRROLATE 0.2 MG/ML (ROBINUL) 2 ML VIAL IV PRN (11:30)
[2023-04-03] MEDS ORDERED: LIDOCAINE JELLY 2% 6 ML SYRINGE MM PRN (11:30)
[2023-04-03] MEDS ORDERED: ONDANSETRON 4 MG/2 ML (SDV) Z0FRAN IVP PRN (11:30)
[2023-04-03] MEDS ORDERED: NS IV 1000 ML 1,000 ML IV SCH (11:30)
[2023-04-03] MEDS ORDERED: CHLORASEPTIC SPRAY 177 ML LIQUID MC PRN (11:30)
[2023-04-03] MEDS ORDERED: RT-ALBUTEROL/IPRATROPIUM 3 ML (DUONEB) VIAL INH PRN (11:30)
[2023-04-03] MEDS ORDERED: LORazepam 1 MG (ATIVAN) TAB SL PRN (11:30)
[2023-04-03] MEDS ORDERED: LORazepam INJ 2 MG/ML (ATIVAN) VIAL ONE (14:53)
[2023-04-03] MEDS: LORazepam INJ 2 MG/ML (ATIVAN) VIAL IVP PRN ×2 (14:56→20:50)
[2023-04-03] MEDS: fentaNYL PCA 1,000 MCG/100 ML IV SCH ×2 (15:43→21:58)
[2023-04-04] MEDS: fentaNYL PCA 1,000 MCG/100 ML IV SCH ×4 (04:01→22:57)
[2023-04-04] MEDS: LORazepam INJ 2 MG/ML (ATIVAN) VIAL IVP PRN (09:04)
[2023-04-04] MEDS ORDERED: LORazepam INJ 2 MG/ML (ATIVAN) VIAL IVP SCH (11:00)
[2023-04-04] MEDS ORDERED: morphine (ROXINOL) 10 MG/0.5 ML oral conc 0.5 ML PO SCH ×2 (11:00→12:00)
[2023-04-04] MEDS ORDERED: morphine (ROXINOL) 10 MG/0.5 ML oral conc 0.5 ML PO PRN (12:15)
[2023-04-04] MEDS ORDERED: LORazepam INJ 2 MG/ML (ATIVAN) VIAL IVP PRN (12:15)
--- NOTE | 2023-04-04 12:26 | Progress Note - Hospitalist ---
Subjective HPI/CC On Admission Date Seen by Provider: April 04, 2023 Time Seen by Provider: 12:10 Subjective/Events-last exam She is sleeping. She appears comfortable. Objective Exam Vital Signs Vital Signs Date Time Temp Pulse Resp B/P (MAP) Pulse Ox O2 Delivery O2 Flow Rate FiO2 04/04/23 08:30 Room Air Capillary Refill : General Appearance: No Apparent Distress, Thin Respiratory: No Respiratory Distress, Decreased Breath Sounds Cardiovascular: Regular Rate, Rhythm, No Murmur Gastrointestinal: Soft, Abnormal Bowel Sounds Extremity: Normal Inspection, No Pedal Edema Neurologic/Psychiatric: Other (does not respond to painful stimuli, appears comfortable) Skin: Normal Color, Warm/Dry Results/Procedures Lab Patient resulted labs reviewed. Assessment/Plan Assessment and Plan Assess & Plan/Chief Complaint Small bowel obstruction h/o bowel resection h/o GI Bleed [place] CAD CHF HTN Hypokalemia UTI Hypothyroidism GERD Breast cancer Advance care planning Hospice admission Comfort measures only status Fentanyl pain pump and patch Ativan as needed Roxanol as needed [facility] assisting Diagnosis/Problems Diagnosis/Problems (1) SBO (small bowel obstruction) Status: Acute (2) Admission for hospice care Status: Acute (3) Poor prognosis Status: Acute (4) Goals of care, counseling/discussion Status: Acute (5) Advanced age Status: Chronic (6) Breast cancer Status: Chronic ROBERTA DIETZ MD April 04, 2023 12:26
[2023-04-04] MEDS: LORazepam INJ 2 MG/ML (ATIVAN) VIAL IVP SCH ×4 (16:28→22:02)
[2023-04-04] MEDS: morphine (ROXINOL) 10 MG/0.5 ML oral conc 0.5 ML PO SCH ×4 (17:16→22:27)
[2023-04-05] MEDS: LORazepam INJ 2 MG/ML (ATIVAN) VIAL IVP SCH ×2 (00:02→01:57)
[2023-04-05] MEDS: morphine (ROXINOL) 10 MG/0.5 ML oral conc 0.5 ML PO SCH (00:59)
--- NOTE | 2023-04-05 17:20 | Discharge Summary ---
Discharge Summary Hospital Course Problems/Dx: (1) SBO (small bowel obstruction) Status: Acute (2) Admission for hospice care Status: Acute (3) Poor prognosis Status: Acute (4) Goals of care, counseling/discussion Status: Acute (5) Advanced age Status: Chronic (6) Breast cancer Status: Chronic (7) End of life care Status: Acute (8) HTN (hypertension) Status: Chronic (9) CAD (coronary artery disease) Status: Chronic (10) CHF (congestive heart failure) Status: Chronic (11) Intractable pain Status: Acute Hospital Course Date of Admission: April 03, 2023 at 11:18 Admission Diagnosis : Small bowel obstruction, admission for hospice, end of life care Family Physician/Provider: David Pittman MD Date of Discharge: 04/05/23 Discharge Diagnosis: Small bowel obstruction, admission for hospice, end of life care Hospital Course: Kierra Hernandez was an 87 year old female with PMH breast cancer, HTN, CAD, CHF, history of colectomy, history of bowel obstruction, who was admitted with a small bowel obstruction. Surgery was consulted and assisted with her care. She was a poor surgical candidate due to her CAD and CHF. She was treated with conservative medical management, but her symptoms failed to improve. We discussed proceeding with surgery despite it being high risk, but she chose to pursue comfort care. 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 [facility] assisted with her care. She subsequently on 04/05/2023. Labs and Pending Lab Test: Home Meds Active Reported Potassium Chloride 20 Meq Tablet.er 60 Meq PO DAILY TAKES 3 (20MEQ) TABS Allergy Relief (Cetirizine HCl) 10 Mg Tablet 10 Mg PO DAILY Torsemide 20 Mg Tablet 20 Mg PO DAILY PRN ONLY USES IF FUROSEMIDE IF NOT EFFECTIVE Isosorbide Mononitrate ER (Isosorbide Mononitrate) 120 Mg Tab.er.24h 120 Mg PO DAILY Fentanyl Patch 50 MCG (Fentanyl) 50 Mcg/Hour Patch.td72 50 Mcg TD Q72H Coreg (Carvedilol) 6.25 Mg Tablet 6.25 Mg PO BID Flintstones with Iron Tab Chew (Pediatric Multivit No.203/Iron) 18 Mg Iron Tab.chew 18 Mg PO DAILY Synthroid (Levothyroxine Sodium) 100 Mcg Tablet 50 Mcg PO DAILY TAKES OF A 100MCG Nitroglycerin 0.4 Mg Tab.subl 0.4 Mg SL UD PRN Culturelle (Lactobacillus Rhamnosus GG) 1 Each Capsule 1 Each PO DAILY Melatonin 10 Mg Tablet 10 Mg PO HS Magnesium (Magnesium Oxide) 250 Mg Tablet 250 Mg PO DAILY Aspirin EC (Aspirin) 81 Mg Tablet.dr 81 Mg PO DAILY Potassium Chloride 20 Meq Tab.er.prt 40 Meq PO HS TAKES 2 (20MEQ) TABS Tamoxifen Citrate 20 Mg Tablet 20 Mg PO DAILY Pantoprazole Sodium 40 Mg Tablet.dr 40 Mg PO BID Furosemide 20 Mg Tablet 20 Mg PO DAILY PRN USES FIRST FOR RETENTION Cyanocobalamin Injection (Cyanocobalamin) 1,000 Mcg/Ml Inj 1 Ml IM MONTHLY Hydrocodone-Acetamin 10-325 mg (Hydrocodone/Acetaminophen) 1 Each Tablet 1 Ea PO Q6H PRN Topiramate 50 Mg Tablet 150 Mg PO HS TAKES 3 (50MG) TABS Assessment/Pt Instructions Patient Discharge Physical Examination Vital Signs Vital Signs Date Time Temp Pulse Resp B/P (MAP) Pulse Ox O2 Delivery O2 Flow Rate FiO2 04/04/23 20:00 Room Air Allergies: Coded Allergies: Penicillins (Unverified Allergy, Unknown, 03/30/23) carbamazepine (Verified Allergy, Unknown, 03/29/23) cyproheptadine (Verified Allergy, Unknown, 03/29/23) esomeprazole (Verified Allergy, Unknown, 03/29/23) indomethacin (Verified Allergy, Unknown, 03/29/23) simvastatin (Verified Allergy, Unknown, 03/29/23) lorazepam (Verified Adverse Reaction, Unknown, CONFUSION, INABLITY TO MAKE SENTENCES, 04/03/23) CONFUSION, INABLITY TO MAKE SENTENCES Discharge Summary Date of Admission April 03, 2023 at 11:18 Date of Discharge April 05, 2023 at 05:45 Discharge Date: April 05, 2023 Discharge Time: 05:45 Comfort Measures/ End of Life Care: Comfort Measures Advance Care discuss with: patient, family member (s) Plan: initiate discussion, clarifying prognosis, identified end-of-life goals, developed treatment plan Time spent on discussion (min): 45 Cardiopulmonary Arrest: Cardiorespiratory Arrest Date of : April 05, 2023 Time of : 03:05 Discharge Diagnosis Small bowel obstruction h/o bowel resection h/o GI Bleed [place] CAD CHF HTN Hypokalemia UTI Hypothyroidism GERD Breast cancer Advance care planning Hospice admission Intractable pain Comfort measures only status (1) SBO (small bowel obstruction) Status: Acute (2) Admission for hospice care Status: Acute (3) Poor prognosis Status: Acute (4) Goals of care, counseling/discussion Status: Acute (5) Advanced age Status: Chronic (6) Breast cancer Status: Chronic (7) End of life care Status: Acute (8) HTN (hypertension) Status: Chronic (9) CAD (coronary artery disease) Status: Chronic (10) CHF (congestive heart failure) Status: Chronic (11) Intractable pain Status: Acute ROBERTA DIETZ MD April 05, 2023 17:19
[2023-04-06] MEDS ORDERED: FENTANYL PATCH REMOVAL TP SCH (08:59)
[2023-04-06] MEDS ORDERED: fentaNYL PATCH 75 MCG (DURAGESIC) TD SCH (09:00)
== END 2023-04-05 05:45 | disposition expired | DRG 951 ==
LOC: 4TH 11:18
PROVIDERS: ADMIT Internal Medicine; ATTEND Internal Medicine
DX: Z51.5 Encounter for palliative care (principal); K56.609 Unspecified intestinal obstruction, unspecified as to partial versus complete obstruction; N17.9 Acute kidney failure, unspecified; N39.0 Urinary tract infection, site not specified; R52 Pain, unspecified; C50.919 Malignant neoplasm of unspecified site of unspecified female breast; I25.10 Atherosclerotic heart disease of native coronary artery without angina pectoris; I50.9 Heart failure, unspecified; I11.0 Hypertensive heart disease with heart failure; Z90.49 Acquired absence of other specified parts of digestive tract; E87.6 Hypokalemia; E03.9 Hypothyroidism, unspecified; Z66 Do not resuscitate